=== PATIENT | female | born 1945 | race Caucasian/White ===

== ENCOUNTER 2016-07-06 14:11 | Outpatient (CLI) | payer MEDICARE, OTHER | END 2016-07-06 14:12 | disposition EMS.NT | LOC: EMS 14:11 | PROVIDERS: ATTEND Surgery | DX: R53.83 Other fatigue (principal); R41.0 Disorientation, unspecified; R47.81 Slurred speech ==

== ENCOUNTER 2016-12-09 17:28 | Outpatient (CLI) | payer MEDICARE, OTHER | END 2016-12-09 17:29 | disposition EMS.NT | LOC: EMS 17:28 | PROVIDERS: ATTEND Surgery | DX: M25.551 Pain in right hip (principal); W10.9XXA Fall (on) (from) unspecified stairs and steps, initial encounter; Y92.009 Unspecified place in unspecified non-institutional (private) residence as the place of occurrence of the external cause ==

== ENCOUNTER 2016-12-09 18:06 | Emergency (ER) | payer MEDICARE, OTHER ==
[2016-12-09] MEDS ORDERED: HYDROcod/ACETAM 5/325 MG TABLET PO STA (18:15)
[2016-12-09] MEDS ORDERED: TETANUS/DIPHTHERIA/PERTUSSIS 0.5 ML SYRINGE IM ONE ×2 (18:16→18:26)
--- NOTE | 2016-12-09 18:20 | ED Physician Documentation ---
PD HPI HEADACHE - Stated complaint Stated Complaint: HEAD INJ - Chief complaint Chief Complaint: Trauma Hd/Nk - History obtained from History obtained from: Patient, Family - History of Present Illness Timing - onset: Other (She fell down several stairs at home hitting the back of her head with no loss of consciousness. She has a moderate headache. She also complains of right hip pain but no pain with range of motion or inability to walk. Tetanus is not up-to-date. 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 - Present Medications Home Medications: Ambulatory Orders Medication Instructions Recorded Confirmed Aspirin [Aspirin EC] 81 mg PO DAILY 11/17/15 12/09/16 Carvedilol [Coreg] 12.5 mg PO BID 11/17/15 12/09/16 Insulin Glargine [Lantus Solostar] 40 units SQ BID 11/17/15 12/09/16 Lisinopril [Lisinopril] 10 mg PO DAILY 11/17/15 12/09/16 Simvastatin [Zocor] 20 mg PO DAILY 11/17/15 12/09/16 metFORMIN [Glucophage] 1,000 mg PO BID 11/17/15 12/09/16 Citalopram [CeleXA] 10 mg PO DAILY 12/09/16 12/09/16 HYDROcod/ACETAM 5/325 [[place] 5/325] 1 - 2 ea PO Q6H PRN #10 tablet 12/09/16 Lisinopril 12/09/16 Tolterodine [Detrol LA] 2 mg PO BID 12/09/16 12/09/16 - Allergies Allergies/Adverse Reactions: Allergies Allergy/AdvReac Type Severity Reaction Status Date / Time Penicillins Allergy Anaphylaxis Verified 12/09/16 18:16 - Living Situation Living Situation: reports: With spouse/s.o. - Social History Does the pt smoke?: No Smoking Status: Never smoker Does the pt drink ETOH?: Yes Does the pt have substance abuse?: No - Family History Family history: reports: Non contributory - Immunizations Immunizations are current?: Yes - POLST Patient has POLST: No PD ED PE NORMAL - Vitals Vital signs reviewed: Yes - General General: Alert and oriented X 3, No acute distress - HEENT HEENT: PERRL, EOMI, Other (Firm hematoma on the right occiput) - Neck Neck: Other (Mild upper C-spine tenderness) - Cardiac Cardiac: RRR, No murmur - Respiratory Respiratory: No respiratory distress, Clear bilaterally - Abdomen Abdomen: Soft, Non tender - Extremities Extremities: Other (All of her extremities are palpated and nontender, specifically the right hip is nontender and she has no pain with internal or external rotation. She does have broken fingernails of the right second and third fingers which were clipped during examination at her request. There was a wendy in the skin on the radial side of the right third finger that was irrigated and Dermabond it because it was oozing a little bit.) - Neuro Neuro: Alert and oriented X 3, Normal speech - Psych Psych: Normal mood, Normal affect Results - Vitals Vitals: Vital Signs - 24 hr 12/09/16 12/09/16 18:10 19:15 Temperature 36.5 C 36.2 C L Heart Rate 77 71 Respiratory 18 18 Rate Blood Pressure 132/69 H 109/71 O2 Saturation 96 95 Oxygen O2 Source Room air - Labs Labs: Laboratory Tests 12/09/16 18:41 POC Whole Bld Glucose 121 H - Rads (name of study) CT Head and Cspine Radiology: EMP read contemporaneously (Degenerative and age-related changes without acute disease) Procedures - Laceration (location) Right third finger Length in cm: 0.5 Wound type: Linear, Superficial Wound Preparation: Irrigated copiously NS Skin layer closure: Dermabond Other: Tetanus booster given Complexity: Simple PD MEDICAL DECISION MAKING - ED course ED course: 71-year-old woman with fall downstairs and a head injury, chronically no hip fracture and has no hip pain at rest. Head and neck CTs were done without relevant findings. She was able to walk and bear weight without issue here was given 6 Vicodin to go. Tetanus was updated. The patient and family were counseled as to the diagnosis and need for follow- up. I counseled the patient with regard to signs and symptoms that would necessitate an urgent reevaluation in the emergency department. They understand they are welcome to return at any time if worse or if not improving as expected. This document was made in part using voice recognition software. While efforts are made to proofread this documents, sound alike and grammatical errors may occur. Departure - Departure Disposition: 01 Home, Self Care Clinical Impression: Neck pain Head injury Qualifiers: Encounter type: initial encounter Qualified Code(s): S09.90XA - Unspecified injury of head, initial encounter Fall Qualifiers: Encounter type: initial encounter Qualified Code(s): W19.XXXA - Unspecified fall, initial encounter Knee contusion Qualifiers: Encounter type: initial encounter Laterality: left Qualified Code(s): S80.02XA - Contusion of left knee, initial encounter Condition: Good Record reviewed to determine appropriate education?: Yes Instructions: ED Head Injury Closed Prescriptions: HYDROcod/ACETAM 5/325 [[place] 5/325] 1 - 2 ea PO Q6H PRN #10 tablet PRN Reason: Pain Comments: Call your doctor to arrange a follow-up appointment, make the next available appointment. In the interim, return anytime if worse or if new symptoms develop. Your blood pressure was elevated today on check into the emergency department. This does not mean that you have hypertension, it is a common phenomenon to come to the emergency department and have elevated blood pressure. I recommend that she see your primary care physician within the week to have it rechecked when you are feeling better. Do not drink or drive while taking narcotic pain medication. Note that many narcotic pain relievers also contain Tylenol/acetaminophen. Please ensure that your total dose of acetaminophen from all sources does not exceed 3 g (3000 mg) per day. You may get constipated while on this medication. Take a stool softener such as Colace twice a day while you are on it. Also add an tcdy-aga-vpsccft laxative such as senna or MiraLAX on any day that you do not have a bowel movement. If you received a narcotic pain medication or sedative while in the emergency department, do not drive for the next 24 hours. Discharge Date/Time: 12/09/16 19:26
[2016-12-09] MEDS ORDERED: HYDROcod/ACETAM 5/325 MG TABLET ONE (18:26)
--- NOTE | 2016-12-09 18:56 | CT Preliminary Report ---
Exam: CT HEAD W/O IMPRESSION: 1. Superficial soft tissue swelling. 2. Atrophic and other chronic findings. No acute intracranial disease. [facility] SITE ID: [id number]
--- NOTE | 2016-12-09 18:59 | CT Report ---
EXAM: CT HEAD EXAM DATE: 12/09/2016 06:31 PM. CLINICAL HISTORY: Fall, pain. COMPARISON: 11/17/2015. TECHNIQUE: Multiaxial CT images were obtained from the foramen magnum to the vertex. IV contrast: Non e. Reformats: Coronal. In accordance with CT protocol optimization, one or more of the following dose reduction techniques w ere utilized for this exam: automated exposure control, adjustment of mA and/or KV based on patient s ize, or use of iterative reconstructive technique. FINDINGS: Parenchyma: No intraparenchymal hemorrhage. No evidence of mass, midline shift, or CT findings of acu te infarction. Clarke-white differentiation is distinct. Extraaxial Spaces: Normal for age. No subdural or epidural collections. Ventricles: The ventricles and cortical sulci are enlarged, consistent with age-related tissue loss. Sinuses and orbits: Imaged paranasal sinuses, orbits, and mastoids show no significant abnormality. Bones: Unremarkable. Other: Mild chronic microangiopathic white matter changes. Superficial soft tissue swelling over post erior right parietal region. IMPRESSION: 1. Superficial soft tissue swelling. 2. Atrophic and other chronic findings. No acute intracranial disease. [facility] Referring Provider Line: [phone] SITE ID: [id number]
--- NOTE | 2016-12-09 18:59 | CT Preliminary Report ---
Exam: CT CERVICAL SPINE W/O IMPRESSION: Degenerative changes. No acute disease. [facility] SITE ID: [id number]
--- NOTE | 2016-12-09 19:02 | CT Report ---
EXAM: CT CERVICAL SPINE WITHOUT CONTRAST DATE: 12/09/2016 06:38 PM HISTORY: Fall, pain. COMPARISONS: 11/17/2015. TECHNIQUE: Thin-section axial images were acquired of the cervical spine without contrast. Post-proce ssing: Coronal and sagittal reformats. Other: None. In accordance with CT protocol optimization, one or more of the following dose reduction techniques w ere utilized for this exam: automated exposure control, adjustment of mA and/or KV based on patient s ize, or use of iterative reconstructive technique. FINDINGS: Alignment: Normal. No scoliosis or spondylolisthesis. Bones: No fracture or bone lesion. Interspace Levels/Facets: Disk space narrowing similar to previous study, most marked at C5-C6 and C6 -C7 with small marginal osteophytes. Mild degenerative changes in the facet joints, left more than ri ght. Musculature: Grossly unremarkable. Other: The paravertebral and prevertebral soft tissues are normal. The lung apices are clear. IMPRESSION: Degenerative changes. No acute disease. [facility] Referring Provider Line: [phone] SITE ID: [id number]
[2016-12-09] MEDS ORDERED: HYDROcod/ACET 5/325 Prepack 6 PO STA (19:07)
[2016-12-09 19:15] VITALS: BP 109/71
[2016-12-09] MEDS ORDERED: HYDROcod/ACET 5/325 Prepack 6 PO ONE (19:22)
== END 2016-12-09 19:26 | disposition home or self-care (01) ==
LOC: ED 18:06
DX: S09.90XA Unspecified injury of head, initial encounter (principal); S80.02XA Contusion of left knee, initial encounter; S61.212A Laceration without foreign body of right middle finger without damage to nail, initial encounter; W10.9XXA Fall (on) (from) unspecified stairs and steps, initial encounter; W45.8XXA Other foreign body or object entering through skin, initial encounter; Y92.009 Unspecified place in unspecified non-institutional (private) residence as the place of occurrence of the external cause; Y92.239 Unspecified place in hospital as the place of occurrence of the external cause; R03.0 Elevated blood-pressure reading, without diagnosis of hypertension; Z23 Encounter for immunization; I50.9 Heart failure, unspecified; E11.9 Type 2 diabetes mellitus without complications
CPT/HCPCS: 12001; 70450; 72125; 90471; 90715; 99283; A9270

== ENCOUNTER 2017-05-14 15:12 | Outpatient (CLI) | payer MEDICARE, OTHER ==
--- NOTE | 2017-05-15 15:30 | Mammography Report ---
DIGITAL SCREENING LEFT MAMMOGRAM: 05/14/2017 CLINICAL INDICATION: A 72-year-old with personal history of right breast cancer, status post mastectomy, for screening. TECHNIQUE: Left CC, laterally exaggerated CC, MLO views were obtained. COMPARISON: 01/2012, 11/2010, 11/2009. FINDINGS: The left breast again demonstrates fatty replacement. Coarse, typically benign calcifications are present. Intramammary lymph nodes are stable. No suspicious masses, clustered microcalcifications, or regions of architectural distortion are identified. IMPRESSION: BENIGN FINDINGS. RECOMMENDATION: ROUTINE ANNUAL SCREENING UNLESS OTHERWISE CLINICALLY INDICATED. BIRADS CATEGORY 2-BENIGN FINDINGS. STANDARD QUALIFYING STATEMENTS: 1. This examination was reviewed with the aid of Computer-Aided Detection (CAD). 2. A negative or benign imaging report should not delay biopsy if clinically suspicious findings are present. Consider surgical consultation if warranted. More than 5% of cancers are not identified by imaging. 3. Dense breasts may obscure an underlying neoplasm. TD: 05/15/2017 15:29
== END 2017-05-14 15:13 | disposition home or self-care (01) ==
LOC: DI 15:12
PROVIDERS: ATTEND Physician Assistant
DX: Z12.31 Encounter for screening mammogram for malignant neoplasm of breast (principal); Z85.3 Personal history of malignant neoplasm of breast; Z90.11 Acquired absence of right breast and nipple

== ENCOUNTER 2017-05-22 08:01 | Outpatient (CLI) | payer MEDICARE, OTHER ==
[2017-05-22] MEDS ORDERED: ALBUTEROL NEB 2.5 MG/3 ML INH ONE (10:00)
== END 2017-05-22 08:02 | disposition home or self-care (01) ==
LOC: DI 08:01
PROVIDERS: ATTEND Physician Assistant
DX: R06.00 Dyspnea, unspecified (principal); I50.9 Heart failure, unspecified; I34.0 Nonrheumatic mitral (valve) insufficiency; Z87.891 Personal history of nicotine dependence
CPT/HCPCS: 93306; 94060

== ENCOUNTER 2017-12-26 00:09 | Emergency (ER) | payer MEDICARE, OTHER ==
--- NOTE | 2017-12-26 01:24 | XRAY Report ---
Reason: coughing Procedure Date: 12/26/2017 Accession Number: [id number] / [id number] Procedure: XR - Chest 2 View X-Ray CPT Code: 13366 FULL RESULT: EXAM: CHEST RADIOGRAPHY EXAM DATE: 12/26/2017 01:15 AM. CLINICAL HISTORY: Coughing. COMPARISON: CHEST 2 VIEW PA/LAT 06/11/2015 12:40 PM. TECHNIQUE: 2 views. FINDINGS: Lungs/Pleura: No focal opacities evident. No pleural effusion. No pneumothorax. Normal volumes. Mediastinum: Heart and mediastinal contours are unremarkable. Other: Increasing eventration of the anterior right hemidiaphragm. IMPRESSION: Increasing right diaphragmatic eventration. No evidence of acute cardiopulmonary disease. [facility]
--- NOTE | 2017-12-26 01:29 | ED Physician Documentation ---
PD HPI URI - Stated complaint Stated Complaint: COUGH - Chief complaint Chief Complaint: Resp - History obtained from History obtained from: Patient - History of Present Illness Timing - onset: How many weeks ago (1) Timing details: Gradual onset Associated symptoms: Productive cough. No: Fever Similar symptoms before: Has not had sx before Recently seen: Not recently seen - Additional information Additional information: c/o cough x 1 week, gradually worsening, became productive yesterday Review of Systems Constitutional: denies: Fever, Chills, Sweats Throat: reports: Sore throat Cardiac: denies: Chest pain / pressure, Palpitations, Pedal edema Respiratory: reports: Dyspnea, Cough. 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 - Present Medications Home Medications: Ambulatory Orders Medication Instructions Recorded Confirmed Aspirin [Aspirin EC] 81 mg PO DAILY 11/17/15 12/09/16 Carvedilol [Coreg] 12.5 mg PO BID 11/17/15 12/09/16 Insulin Glargine [Lantus Solostar] 40 units SQ BID 11/17/15 12/09/16 Lisinopril 10 mg PO DAILY 11/17/15 12/09/16 Simvastatin [Zocor] 20 mg PO DAILY 11/17/15 12/09/16 metFORMIN [Glucophage] 1,000 mg PO BID 11/17/15 12/09/16 Citalopram [CeleXA] 10 mg PO DAILY 12/09/16 12/09/16 HYDROcod/ACETAM 5/325 [[place] 5/325] 1 - 2 ea PO Q6H PRN #10 tablet 12/09/16 Lisinopril 12/09/16 Tolterodine [Detrol LA] 2 mg PO BID 12/09/16 12/09/16 Benzonatate [Tessalon] 100 - 200 mg PO TID PRN #20 capsule 12/26/17 predniSONE [Prednisone] 40 mg PO DAILY #6 tablet 12/26/17 - Allergies Allergies/Adverse Reactions: Allergies Allergy/AdvReac Type Severity Reaction Status Date / Time Penicillins Allergy Anaphylaxis Verified 11/03/18 00:18 - Social History Does the pt smoke?: No Smoking Status: Never smoker Does the pt drink ETOH?: Yes Does the pt have substance abuse?: No - Immunizations Immunizations are current?: Yes - POLST Patient has POLST: No PD ED PE NORMAL - Vitals Vital signs reviewed: Yes - General General: Alert and oriented X 3, No acute distress, Well developed/nourished, Other (frequent coughing during H+P) - Cardiac Cardiac: RRR, No murmur - Respiratory Respiratory: No respiratory distress, Other (course expiratory breath sounds bilaterally) - Extremities Extremities: No edema Results - Vitals Vitals: Oxygen O2 Source Room air - Rads (name of study) chest xray Radiology: Prelim report reviewed, See rad report PD MEDICAL DECISION MAKING - ED course Complexity details: reviewed results, re-evaluated patient, considered differential, d/w patient ED course: on reevaluation, patient reports improvement in symptoms and has noticeably less coughing. there is improved aeration on auscultation with mild residual course expiratory breath sounds bilaterally Departure - Departure Disposition: 01 Home, Self Care Clinical Impression: Bronchitis, acute, with bronchospasm Condition: Good Instructions: ED Bronchitis Asthmatic Follow-Up: Sabrina Woody PA-C [Primary Care Provider] - (3-4 days if symptoms not improving ) Prescriptions: Benzonatate [Tessalon] 100 - 200 mg PO TID PRN #20 capsule PRN Reason: Cough predniSONE [Prednisone] 40 mg PO DAILY #6 tablet Discharge Date/Time: 12/26/17 02:53
[2017-12-26] MEDS ORDERED: IPRATROPIUM/ALBUTEROL 3 ML NEB INH STA (01:53)
[2017-12-26] MEDS ORDERED: LORATADINE 10 MG TABLET PO STA (01:53)
[2017-12-26] MEDS ORDERED: BENZONATATE 100 MG CAPSULE PO STA (01:54)
[2017-12-26] MEDS ORDERED: predniSONE 20 MG TABLET PO STA (01:54)
[2017-12-26 02:06] VITALS: BP 129/71
== END 2017-12-26 02:53 | disposition home or self-care (01) ==
LOC: ED 00:09
DX: J20.9 Acute bronchitis, unspecified (principal); Z79.82 Long term (current) use of aspirin
CPT/HCPCS: 71046; 94640; 99283; A9270; J7512

== ENCOUNTER 2018-09-09 10:43 | Outpatient (CLI) | payer MEDICARE, OTHER ==
--- NOTE | 2018-09-09 13:01 | XRAY Report ---
Reason: RIGHT SHOULDER PAIN Procedure Date: 09/09/2018 Accession Number: [id number] / [id number] Procedure: XRN - Shoulder 3 View RT CPT Code: FULL RESULT: EXAM: RIGHT SHOULDER RADIOGRAPHY EXAM DATE: 09/09/2018 10:58 AM. CLINICAL HISTORY: Right shoulder pain. COMPARISON: None. TECHNIQUE: 3 views. FINDINGS: Bones: Normal. No fracture or bone lesion. Joints: The glenohumeral and acromioclavicular joints are normally located with degenerative changes in both including osteophyte formation and loss of joint space. Soft tissues: The visualized hemithorax is unremarkable. No soft tissue swelling. IMPRESSION: At least moderate degenerative changes of the glenohumeral articulation and AC joint. [facility]
== END 2018-09-09 10:44 | disposition home or self-care (01) ==
LOC: DI.N 10:43
PROVIDERS: ATTEND Internal Medicine
DX: M19.011 Primary osteoarthritis, right shoulder (principal)

== ENCOUNTER 2018-09-24 18:46 | Outpatient (CLI) | payer MEDICARE, OTHER | END 2018-09-24 18:47 | disposition EMS.NT | LOC: EMS 18:46 | PROVIDERS: ATTEND Surgery | DX: R41.82 Altered mental status, unspecified (principal); R73.09 Other abnormal glucose ==

== ENCOUNTER 2018-10-26 13:11 | Outpatient (CLI) | payer MEDICARE, OTHER ==
--- NOTE | 2018-10-26 16:10 | Mammography Report ---
Reason: HX MASTECTOMY FOR BREAST CA, SCREENING MAMMO Procedure Date: 10/26/2018 Accession Number: [id number] / [id number] Procedure: MANUEL - Screening Mammo Left w/[place] CPT Code: FULL RESULT: EXAM: Screening Mammo Left w/[place] DATE: 10/26/2018 2:10 PM CLINICAL HISTORY: Status post right mastectomy for routine screening. TECHNIQUE: (L) - Left CC and MLO views were obtained. COMPARISON: 09/09/2018, 05/14/2017, 02/11/2012, 12/04/2010, 11/29/2009 and 10/11/2008. PARENCHYMAL PATTERN: (A) - The breasts demonstrate scattered fibroglandular densities bilaterally. FINDINGS: There are 2 new or enlarging nodules in the left upper outer quadrant one 9 to 10 cm from the nipple and the other approximately 15 cm from the nipple both measuring under 1 cm in size. No suspicious microcalcifications, skin thickening or architectural distortion.. IMPRESSION: Needs additional evaluation left breast by spot compression views and possible ultrasound. RECOMMENDATION: (ADDMU) - Additional views using both Mammography and Ultrasound recommended. Left breast BI-RADS CATEGORY: (0) - Incomplete Examination - need additional evaluation. STANDARD QUALIFYING STATEMENTS: 1. This examination was not reviewed with the aid of Computer-Aided Detection (CAD). 2. A negative or benign imaging report should not preclude biopsy if clinically suspicious findings are present. 3. Dense breasts may obscure an underlying neoplasm. 4. This examination was reviewed with the aid of 3D breast imaging (tomosynthesis).
== END 2018-10-26 13:12 | disposition home or self-care (01) ==
LOC: DI 13:11
PROVIDERS: ATTEND Internal Medicine
DX: Z12.31 Encounter for screening mammogram for malignant neoplasm of breast (principal); R92.8 Other abnormal and inconclusive findings on diagnostic imaging of breast; Z85.3 Personal history of malignant neoplasm of breast; Z90.11 Acquired absence of right breast and nipple
CPT/HCPCS: 77063

== ENCOUNTER 2018-10-26 13:25 | Outpatient (CLI) | payer MEDICARE, OTHER ==
--- NOTE | 2018-10-27 08:59 | DEXA Report ---
Reason: POST MENOPAUSAL Procedure Date: 10/26/2018 Accession Number: [id number] / [id number] Procedure: DEX - Dexa Spine and/or Hip CPT Code: FULL RESULT: EXAM: Dexa Spine and/or Hip DATE: 10/26/2018 2:23 PM CLINICAL HISTORY: POST MENOPAUSAL TECHNIQUE: Dual energy x-ray absorptiometry (DXA) was performed on a [employer] System. Regions measured are the AP Spine, femoral neck, and if needed forearm. COMPARISON: None. In accordance with the International Society for Clinical Densitometry (ISCD) guidelines, data from previous exams may be reanalyzed using current recommendations and techniques. This is done to allow a more accurate basis for comparison with the current study. FINDINGS: The data for the lumbar spine is as follows: BMD (g/cm/cm) T-SCORE Z-SCORE REGION L1 1.218 0.7 1.7 L2 1.209 0.1 1.0 L3 1.458 2.2 3.1 L4 1.496 2.5 3.4 TOTAL 1.346 1.4 2.3 NOTE: All evaluable vertebrae are used for classification The data for the hip is as follows: BMD (g/cm/cm) T-SCORE Z-SCORE REGION Neck 0.719 -2.3 -1.0 TOTAL 0.806 -1.6 -0.6 NOTE: The femoral neck or total proximal femur, whichever is lowest, is used for classification. IMPRESSION: THE WHO CLASSIFICATION BASED ON THE INTERNATIONAL REFERENCE STANDARD IS OSTEOPENIA, REFERENCE LEFT FEMORAL NECK. THE FRACTURE RISK IS INCREASED. RECOMMENDATION: Patients with diagnosis of osteoporosis or osteopenia should have regular bone mineral density assessment. For those eligible for Medicare, routine testing is allowed once every 2 years. Testing frequency can be increased for patients who have rapidly progressing disease or for those who are receiving medical therapy to restore bone mass. COMMENT: World Health Organization (WHO) definitions for osteoporosis and osteopenia: NORMAL BMD: T-score at -1.0 or higher, fracture risk is low OSTEOPENIA BMD: T-score between -1.0 and -2.5, fracture risk is increased. OSTEOPOROSIS BMD: T-score at -2.5 or lower, fracture risk is high. National Osteoporosis Foundation recommends: 1. Obtain adequate dietary calcium (at least 1200 mg per day) and vitamin D (400-800 international units per day). 2. Participate, as appropriate, in regular weightbearing and muscle-strengthening exercise. 3. Avoid tobacco use and reduce alcohol and caffeine intake. 4. For more detailed information see the website at www.NOF.org.
== END 2018-10-26 13:26 | disposition home or self-care (01) ==
LOC: DI 13:25
PROVIDERS: ATTEND Internal Medicine
DX: Z13.820 Encounter for screening for osteoporosis (principal); M85.88 Other specified disorders of bone density and structure, other site; N95.8 Other specified menopausal and perimenopausal disorders
CPT/HCPCS: 77080

== ENCOUNTER 2018-11-09 09:16 | Outpatient (CLI) | payer MEDICARE, OTHER ==
--- NOTE | 2018-11-09 15:58 | Mammography Report ---
Reason: ABNORMAL MAMMOGRAM Procedure Date: 11/09/2018 Accession Number: [id number] / [id number] Procedure: [facility] - Diag Special Views Dig LT CPT Code: FULL RESULT: EXAM: Diag Special Views Dig LT, Breast Ultrasound Unilateral Limited LT DATE: 11/09/2018 10:34 AM CLINICAL HISTORY: Status post right mastectomy for cancer. Now with 2 new left breast nodules. COMPARISON: 10/26/2018 mammogram LEFT MAMMOGRAM TECHNIQUE: (L) - Left CC, ML, and MLO views were obtained. PARENCHYMAL PATTERN: (A) - The breasts demonstrate scattered fibroglandular densities bilaterally. FINDINGS: The 2 new left breast nodules persist on additional spot compression and true lateral imaging. LEFT BREAST ULTRASOUND TECHNIQUE: Targeted ultrasound was performed with me present of the left breast upper outer quadrant 9-10 and 15 cm distance from the nipple. Color Doppler was employed as appropriate. FINDINGS: 1. 2:00 position 10 cm from the nipple 8 x 4 x 8 mm oval well-circumscribed minimally vascular nodule, peripherally hypoechoic with echogenic center, possible intramammary lymph node. 2. 2:30 position 12 cm from the nipple hypoechoic ill-defined avascular taller than wide 7 x 11 x 6 mm nodule. 3. 1:00 position 14 cm from the nipple 3.6 x 1.2 x 1.5 cm vascular fairly well defined hyperechoic area without a mammographic correlate, likely a lipoma. IMPRESSION: Suspicious findings. BI-RADS category 4. Suggest stereotactic guided core biopsy RECOMMENDATION: (BIOPSY) - 1. Stereotactic core biopsy x 2: left breast nodule 2:30 position 12 cm from the nipple and left breast nodule 2:00 position 10 cm from the nipple. The 2:30 position nodule is considered the more suspicious and should be biopsied first although both can be biopsied at the same appointment. 2. Ultrasound follow-up in 6 months of the probable lipoma 1:00 position 14 cm from the nipple. BI-RADS CATEGORY: (4) - Suspicious. COMMENT: Stereotactic technique is favored over ultrasound for the biopsies because of the difficulty in locating the more suspicious lesion by ultrasound and the potential for obscuration of this lesion by anesthetic. STANDARD QUALIFYING STATEMENTS: 1. This examination was not reviewed with the aid of Computer-Aided Detection (CAD). 2. A negative or benign imaging report should not preclude biopsy if clinically suspicious findings are present. 3. Dense breasts may obscure an underlying neoplasm. 4. This examination was reviewed with the aid of 3D breast imaging (tomosynthesis). .
== END 2018-11-09 09:17 | disposition home or self-care (01) ==
LOC: DI 09:16
PROVIDERS: ATTEND Internal Medicine
DX: N63.20 Unspecified lump in the left breast, unspecified quadrant (principal); R92.8 Other abnormal and inconclusive findings on diagnostic imaging of breast; Z08 Encounter for follow-up examination after completed treatment for malignant neoplasm; Z85.3 Personal history of malignant neoplasm of breast
CPT/HCPCS: 76642

== ENCOUNTER 2018-12-01 10:17 | Outpatient (CLI) | payer MEDICARE, OTHER ==
[2018-12-01] MEDS ORDERED: BUFFERED LIDOCAINE 10 ML SYRINGE ONE ×2 (10:53→14:12)
[2018-12-01] MEDS ORDERED: BUFFERED LIDOCAINE 10 ML SYRINGE IU ONE (14:43)
--- NOTE | 2018-12-01 17:04 | Mammography Report ---
Reason: S/P LEFT BREAST US GUIDED BX Procedure Date: 12/01/2018 Accession Number: [id number] / [id number] Procedure: MANUEL - Diag Special Views Dig LT CPT Code: FULL RESULT: PROCEDURE: Ultrasound-guided needle biopsy left breast mass. CLINICAL DATA: Site 1 -- Targeted mass measuring 11 mm with irregular margins in the 2:30 o'clock axis of the left breast 12 cm from nipple. Site 2 -- Targeted mass measuring 8 mm with smooth margins in the 2 o'clock axis of the left breast 10 cm from nipple. Site 1 - Informed consent was obtained. Using standard aseptic technique, 10 cc of 1% buffered lidocaine was injected into the breast for local anesthesia. A small wendy was made in the skin with a #11 blade. A 14-gauge coaxial achieve needle system was used to obtain 3 samples and sent for histology and sample container labeled 2:30 12 cmfn. A specialized biopsy marker clip (cork) was placed into the biopsy cavity under ultrasound guidance. Site 2 - Using standard aseptic technique, 10 cc of 1% buffered lidocaine was injected into the breast for local anesthesia. A small wendy was made in the skin with a #11 blade. A 14-gauge coaxial achieve needle system was used to obtain 3 samples and sent for histology and sample container labeled 2:00 10 cmfn. A specialized biopsy marker clip (top hat) was placed into the biopsy cavity under ultrasound guidance. The patient was taken to separate mammography machine and a two-view digital mammography was performed to verify the clip placement and any complications. The mammography showed Site 1 to be at the expected location with cork clip in place. Site 2 showed clip associated with a mammographically stable intramammary lymph node in the axillary tail of the breast, NOT corresponding to location mammographic finding of concern by diagnostic workup of 11/09/2018, which is again seen as an oval mass with circumscribed margin 4 cm anterior to the cork shaped clip. The wound was dressed and ice applied. The patient was observed for approximately 15 minutes, then was discharged from diagnostic imaging Department in good condition following instructions on wound care and obtaining biopsy results. The patient is scheduled to receive the biopsy results from the referring physician. The tissue was sent for histologic analysis. IMPRESSION: Ultrasound-guided biopsy of the left breast, as described. NOTE: Biopsy of site 1 is at expected location. Biopsy of site 2 does not correspond by location to initial mammographic finding of concern. Depending on biopsy results and/or potential treatment plan, additional biopsy of the residual mass 4 cm anterior to cork shaped clip may be indicated. AN ADDENDUM WILL REMAIN TO THIS REPORT WHEN PATHOLOGY IS REVIEWED TO ESTABLISH CONCORDANCE.
== END 2018-12-01 10:18 | disposition home or self-care (01) ==
LOC: DI 10:17
PROVIDERS: ATTEND Internal Medicine
DX: C50.412 Malignant neoplasm of upper-outer quadrant of left female breast (principal); Z17.1 Estrogen receptor negative status [ER-]
CPT/HCPCS: 19083; 19084; 88305; 88341; 88342; 88360

== ENCOUNTER 2018-12-20 15:00 | Outpatient (CLI) | payer MEDICARE, OTHER ==
[2018-12-20 16:02] LABS: CREATININE 0.8 mg/dL (0.4-1.0)
== END 2018-12-20 15:01 | disposition home or self-care (01) ==
LOC: LAB 15:00
PROVIDERS: ATTEND Surgery
DX: C50.912 Malignant neoplasm of unspecified site of left female breast (principal)
CPT/HCPCS: 36415; 82565

== ENCOUNTER 2018-12-28 09:41 | Outpatient (CLI) | payer MEDICARE, OTHER ==
[2018-12-28] MEDS ORDERED: GADOBUTROL 15 MMOL/15 ML VIAL ONE (11:09)
--- NOTE | 2018-12-28 14:11 | OPERATIVE REPORT ---
Operative Report - General Procedure Date: 12/28/18 Planned Procedure: Left Breast Lumpectomy and [place] Node Biopsy After Needle Localization and Mapping. Pre-Op Diagnosis: Left Breast Cancer Procedure Performed: Left Breast Lumpectomy and [place] Node Biopsy After Needle Localization and Mapping. Post Op Diagnosis: Left Breast Cancer - Procedure Note Primary Surgeon: Sinan Anesthesia Provider: PETER Warner Anesthesia Technique: General LMA, Local Pathology: 1. Left Axillary [place] Node - 10 second count 8660. Background in the room is 0. Background in the axilla is 4 2. Left Breast Tissue with wire and clip Estimated Blood Loss (mL): 20 Indications: Biopsy proven left breast cancer
== END 2018-12-28 09:42 | disposition home or self-care (01) ==
LOC: DI 09:41
PROVIDERS: ATTEND Surgery
DX: C50.912 Malignant neoplasm of unspecified site of left female breast (principal)

== ENCOUNTER 2019-01-13 14:50 | Outpatient (CLI) | payer MEDICARE, OTHER | END 2019-01-13 14:51 | disposition home or self-care (01) | LOC: RT 14:50 | PROVIDERS: ATTEND Nurse Anesthetist, Certified Registered | DX: Z01.810 Encounter for preprocedural cardiovascular examination (principal); I50.22 Chronic systolic (congestive) heart failure; R07.9 Chest pain, unspecified | CPT/HCPCS: 93005 ==

== ENCOUNTER 2019-01-16 10:33 | Emergency (ER) | payer MEDICARE, OTHER ==
[2019-01-16 11:11] LABS: BASOPHILS # (AUTO) 0.1 10^3/uL (0.0-0.1); BASOPHILS % (AUTO) 0.9 %; EOSINOPHILS # (AUTO) 0.3 10^3/uL (0.0-0.7); EOSINOPHILS % (AUTO) 3.5 %; HGB - HEMOGLOBIN 12.4 g/dL (12.0-16.0); LYMPHOCYTES # (AUTO) 1.6 10^3/uL (1.5-3.5); LYMPHOCYTES % (AUTO) 20.5 %; MEAN CORPUSCULAR HGB CONC 32.7 g/dL (32.0-36.0); MEAN CORPUSCULAR VOLUME 88.8 fL (81.0-99.0); MEAN PLATELET VOLUME 9.7 fL (7.9-10.8); MONOCYTES # (AUTO) 0.5 10^3/uL (0.0-1.0); MONOCYTES % (AUTO) 6.8 %; NEUTROPHILS # (AUTO) 5.4 10^3/uL (1.5-6.6); NEUTROPHILS % (AUTO) 67.9 %; PLT - PLATELET COUNT 181 10^3/uL (130-450); RED BLOOD COUNT 4.27 10^6/uL (4.20-5.40); WHITE BLOOD COUNT 7.9 x10^3/uL (4.8-10.8)
[2019-01-16 11:24] LABS: ALBUMIN 3.8 g/dL (3.2-5.5); ALBUMIN/GLOBULIN RATIO 1.1 (1.0-2.2); BILIRUBIN,TOTAL 0.6 mg/dL (0.2-1.0); CALCIUM 9.2 mg/dL (8.5-10.3); CREATININE 0.9 mg/dL (0.4-1.0); TOTAL PROTEIN 7.4 g/dL (6.7-8.2)
--- NOTE | 2019-01-16 11:56 | XRAY Report ---
Reason: palpitations Procedure Date: 01/16/2019 Accession Number: [id number] / [id number] Procedure: XR - Chest 1 View X-Ray CPT Code: 66564 Final Report FULL RESULT: EXAM: CHEST RADIOGRAPHY EXAM DATE: 01/16/2019 11:32 AM. CLINICAL HISTORY: Palpitations for a few months. COMPARISON: CHEST 2 VIEW 12/26/2017 1:02 AM. TECHNIQUE: 1 view. FINDINGS: Lungs/Pleura: No focal opacities evident. No pleural effusion. No pneumothorax. Chronic elevation of the right hemidiaphragm. Mediastinum: Within exam limitations, the cardiomediastinal contour is normal. Other: S-shaped scoliosis. IMPRESSION: No acute abnormality or interval change. RADIA
[2019-01-16 13:06] VITALS: BP 114/74
--- NOTE | 2019-01-16 13:22 | ED Physician Documentation ---
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 Subacutely to chronically, may be from months she has episodes of palpitations. Happens maybe once a week, usually at night but sometimes while awake. Its either a sensation of skipped beats or rapid heart rate. Sometimes she feels short of breath with it. She had it last night, but does not now. She feels completely normal now with any chest pain or shortness of breath. No pedal edema. This is causing her a lot of anxiety because it sounds like recently she had a work-up for preop for mastectomy, for 2 small lesions in her left breast which are known to be cancer. I do not have the complete records but it sounds like due to a preop EKG, potentially with a new left bundle branch block, the surgery was canceled and she needed cardiology clearance prior to having the surgery rescheduled.) Review of Systems Constitutional: denies: Fever, Chills, Fatigue Cardiac: denies: Chest pain / pressure Respiratory: denies: Dyspnea, Cough GI: denies: Abdominal Pain, Nausea, Vomiting, Diarrhea PD PAST MEDICAL HISTORY - Past Medical History Past Medical History: No Cardiovascular: Congestive heart failure, Hypertension, Arrhythmia, Other Respiratory: Asthma Neuro: None Endocrine/Autoimmune: Type 2 diabetes GI: None BUSINESS ANALYSIS CONSULTANT: None : Incontinence HEENT: None Psych: Depression Musculoskeletal: Osteoarthritis, Gout Derm: Psoriasis - Past Surgical History Past Surgical History: Yes /BUSINESS ANALYSIS CONSULTANT: section, Mastectomy HEENT: Cataracts - Present Medications Home Medications: Ambulatory Orders Medication Instructions Recorded Confirmed Insulin Glargine [Lantus Solostar] 45 units SQ BID 11/17/15 01/12/19 Lisinopril 10 mg PO DAILY 11/17/15 01/12/19 Simvastatin [Zocor] 20 mg PO QPM 11/17/15 01/12/19 carvediloL [Coreg] 12.5 mg PO BID 11/17/15 01/12/19 metFORMIN [Glucophage] 1,000 mg PO BIDWM 11/17/15 01/12/19 Citalopram [CeleXA] 40 mg PO DAILY 12/09/16 01/12/19 Tolterodine [Detrol LA] 2 mg PO BID 12/09/16 01/12/19 Albuterol Sulfate [Proair Hfa 1 - 2 puffs INH Q4H PRN 01/12/19 01/12/19 Inhaler] Furosemide 20 - 40 mg PO DAILY 01/12/19 01/12/19 - Allergies Allergies/Adverse Reactions: Allergies Allergy/AdvReac Type Severity Reaction Status Date / Time adhesive tape Allergy skin nelson Verified 01/12/19 14:01 Penicillins Allergy Anaphylaxis Verified 12/20/18 13:48 - Social History Does the pt smoke?: No Smoking Status: Never smoker Does the pt drink ETOH?: Yes Does the pt have substance abuse?: No - Immunizations Immunizations are current?: Yes - POLST Patient has POLST: No PD ED PE NORMAL - Vitals Vital signs reviewed: Yes - General General: Alert and oriented X 3, No acute distress - HEENT HEENT: Pharynx benign - Neck Neck: Supple, no meningeal sign, No bony TTP - Cardiac Cardiac: RRR, No murmur - Respiratory Respiratory: No respiratory distress, Clear bilaterally - Abdomen Abdomen: Non tender - Extremities Extremities: No edema, No calf tenderness / cord - Neuro Neuro: Alert and oriented X 3, Normal speech Results - Vitals Vitals: Vital Signs - 24 hr 01/16/19 01/16/19 01/16/19 10:43 13:02 13:06 Temperature 36.8 C Heart Rate 69 66 Respiratory 20 17 Rate Blood Pressure 118/63 114/74 Blood Pressure 114/74 [Left] O2 Saturation 100 93 Oxygen O2 Source Room air - EKG (time done) 1044 Rate: Rate (enter#) (66) Rhythm: NSR [place]: Normal Intervals: LBBB QRS: Normal Ischemia: Normal ST segments Computer interpretation: Agree with computer - Labs Labs: Laboratory Tests 01/16/19 01/16/19 11:07 11:07 WBC 7.9 RBC 4.27 Hgb 12.4 Hct 37.9 MCV 88.8 MCH 29.0 MCHC 32.7 RDW 14.0 Plt Count 181 MPV 9.7 Neut # (Auto) 5.4 Lymph # (Auto) 1.6 [place] # (Auto) 0.5 Eos # (Auto) 0.3 Baso # (Auto) 0.1 Absolute Nucleated RBC 0.00 Nucleated RBC % 0.0 Sodium 138 Potassium 4.0 Chloride 98 L Carbon Dioxide 33 H Anion Gap 7.0 BUN 27 H Creatinine 0.9 Estimated GFR (MDRD) 62 L Glucose 98 Calcium 9.2 Total Bilirubin 0.6 AST 20 ALT 18 Alkaline Phosphatase 54 Total Protein 7.4 Albumin 3.8 Globulin 3.6 Albumin/Globulin Ratio 1.1 Lipase 26 - Rads (name of study) 1V CHEST Radiology: EMP read contemporaneously (NAD) PD MEDICAL DECISION MAKING - ED course ED course: This is a 73-year-old woman with subacute intermittent palpitations, no ectopy on the monitor while here. She does have a left bundle branch block of unclear chronicity. It was not commented on on the echo of last year so presume it is new since then. Her symptoms are more consistent with either paroxysmal atrial fibrillation, SVT, or PVC but again I am unable to narrow it down to the due to the lack of symptomatology or ectopy while in the emergency department. As such that she was encouraged to follow-up with her primary care physician or telephone diaphragm assembler for consideration for Holter monitor, potential repeat echo since it has been a year and a half prior to operation. Departure - Departure Disposition: 01 Home, Self Care Clinical Impression: Palpitation Condition: Good Record reviewed to determine appropriate education?: Yes Instructions: ED Palpitations Follow-Up: Portillo Medina MD [Primary Care Provider] - Tomorrow Comments: RECOMMEND TO DR MEDINA TO CONSIDER HOLTER MONITOR AND REPEAT ECHO (LAST 05/10). ALSO EXPEDITED CARDIOLOGY REFERRAL FOR CLEARANCE PREOP FOR PRESUMED NEW LEFT BUNDLE BRANCH BLOCK PRIOR TO MASTECTOMY. RETURN FOR NEW OR WORSE SYMPTOMS.
== END 2019-01-16 13:35 | disposition home or self-care (01) ==
LOC: ED 10:33
DX: R00.2 Palpitations (principal); I44.7 Left bundle-branch block, unspecified; C50.912 Malignant neoplasm of unspecified site of left female breast; I11.0 Hypertensive heart disease with heart failure; I50.9 Heart failure, unspecified; E11.9 Type 2 diabetes mellitus without complications; Z79.4 Long term (current) use of insulin
CPT/HCPCS: 36415; 71045; 80053; 83690; 85025; 93005; 99283; 99284

== ENCOUNTER 2019-02-01 08:51 | Outpatient (CLI) | payer MEDICARE, OTHER | END 2019-02-01 08:52 | disposition home or self-care (01) | LOC: DI 08:51 | PROVIDERS: ATTEND Surgery | DX: I42.9 Cardiomyopathy, unspecified (principal); I51.7 Cardiomegaly; I34.0 Nonrheumatic mitral (valve) insufficiency | CPT/HCPCS: 93306 ==

== ENCOUNTER 2019-02-08 08:24 | Day surgery (SDC) | payer MEDICARE, OTHER ==
[~2019-02-08 08:24] MED LIST: CEFAZOLIN SODIUM IN 0.9 % NACL 2 GM/100 ML BAG IV ONE
[2019-02-08] MEDS ORDERED: PROPOFOL 200 MG/20 ML VIAL IVP ONE ×2 (08:25)
[2019-02-08] MEDS ORDERED: SUCCINYLCHOLINE 200 MG/10 ML VIAL IVP ONE (08:25)
[2019-02-08] MEDS ORDERED: MIDAZOLAM 2 MG/2 ML VIAL IVP ONE ×2 (08:25)
[2019-02-08] MEDS ORDERED: KETAMINE 500 MG/10 ML VIAL IVP ONE (08:25)
[2019-02-08] MEDS ORDERED: ONDANSETRON 4 MG/2 ML VIAL IVP ONE (08:25)
[2019-02-08] MEDS ORDERED: fentaNYL 100 MCG/2 ML VIAL IVP ONE (08:25)
[2019-02-08] MEDS ORDERED: LACTATED RINGERS 1,000 ML IV ONE ×3 (11:48→18:50)
--- NOTE | 2019-02-08 11:59 | ANESTHESIA ---
Pre-Anesthesia VS, & Labs - Diagnosis L breast CA - Procedure L skin sparing simple mastectomy, sentinel node biopsy Vital Signs: Temp Pulse Resp BP Pulse Ox 36.7 C 86 20 137/71 H 95 02/08/19 08:43 02/08/19 08:43 02/08/19 08:43 02/08/19 08:43 02/08/19 08:43 Height 5 ft 1.5 in Weight (kg) 88 kg Body Mass Index 36.4 - NPO >8 hours Last Fluid Intake: 4oz clear grape [id number] - Is Patient ?: No - Lab Results Current Lab Results: Laboratory Tests 02/08/19 08:49: POC Whole Bld Glucose 168 H Lab results reviewed: Yes Home Medications and Allergies Insulin Glargine [Lantus Solostar] 45 units SQ BID 11/17/15 Lisinopril 10 mg PO DAILY 11/17/15 Simvastatin [Zocor] 20 mg PO QPM 11/17/15 carvediloL [Coreg] 12.5 mg PO BID 11/17/15 metFORMIN [Glucophage] 1,000 mg PO BIDWM 11/17/15 Citalopram [CeleXA] 40 mg PO DAILY 12/09/16 Tolterodine [Detrol LA] 2 mg PO BID 12/09/16 Albuterol Sulfate [Proair Hfa Inhaler] 1 - 2 puffs INH Q4H PRN 01/12/19 Furosemide 20 - 40 mg PO DAILY 01/12/19 Allergies/Adverse Reactions: Allergies Allergy/AdvReac Type Severity Reaction Status Date / Time adhesive tape Allergy skin nelson Verified 01/12/19 14:01 Penicillins Allergy Anaphylaxis Verified 12/20/18 13:48 Anes History & Medical History - Anesthetic History Anesthesia Complications: reports: No previous complications Family history of Anesthesia Complications: Denies Family history of Malignant Hyperthermia: Denies - Medical History Cardiovascular: reports: Congestive heart failure, Hypertension, Arrhythmia, Other Pulmonary: reports: Asthma Gastrointestinal: reports: None Urinary: reports: Incontinence Neuro: reports: None Musculoskeletal: reports: Osteoarthritis, Gout Endocrine/Autoimmune: reports: Type 2 diabetes Blood Disorders: reports: None Skin: reports: Psoriasis Smoking Status: Never smoker - Surgical History Eyes Ears Nose Throat (EENT): Cataracts Gynecologic: section, Mastectomy Results - EKG Results EKG Comparison: Reviewed EKG (NSR w/LBBB, no ST changes noted) - Echo Results Echo Results: Report reviewed (EF 45-50, mod MR) Exam General: Alert, Oriented x3, Cooperative Dental: WNL Mouth Openin Fingerbreadth Neck Mobility: Normal Mallampati classification: II Thyromental Distance: greater than 6 cm Respiratory: Lungs clear, Normal breath sounds, No respiratory distress Cardiovascular: Regular rate Neurological: Normal speech Mental/Cognitive Status: Alert/Oriented X3, Normal for patient Cognitive Status: Within normal limits Plan Anesthesia Type: General, Other Block (PECs 1&2 block) Regional Block: Per Surgeon's request for Post Op pain control Consent for Procedure(s) Verified and Reviewed: Yes Code Status: Attempt Resuscitation ASA classification: 3-Severe systemic disease Is this case an emergency?: No
[2019-02-08] MEDS ORDERED: LIDOCAINE 1%-EPI 1:100000 20 ML MDV ONE ×2 (13:27→18:15)
[2019-02-08] MEDS ORDERED: BUPIVACAINE 0.5% PF 30 ML VIAL ONE ×2 (13:28→18:15)
[2019-02-08] MEDS ORDERED: GABAPENTIN 400 MG CAPSULE ONE (13:34)
[2019-02-08] MEDS ORDERED: ACETAMINOPHEN 500 MG TABLET PO ONE (13:35)
[2019-02-08] MEDS ORDERED: CELECOXIB 100 MG CAPSULE PO ONE (13:35)
[2019-02-08] MEDS ORDERED: BUPIVACAINE 0.5% PF 30 ML VIAL SUBQ ONE ×3 (14:14→18:49)
[2019-02-08] MEDS ORDERED: LIDOCAINE 1%-EPI 1:100000 30 ML MDV SUBQ ONE ×3 (14:14→18:50)
--- NOTE | 2019-02-08 14:47 | ANESTHESIA PROCEDURE NOTE ---
Diagnosis: Left breast cancer, left breast mastectomy Procedure: Left PECS 1&2 blocks Height and Weight: Height 5 ft 1.5 in Weight (kg) 88 kg Body Mass Index 36.4 Vital Signs: Temp Pulse Resp BP Pulse Ox 36.7 C 86 20 137/71 H 95 02/08/19 08:43 02/08/19 08:43 02/08/19 08:43 02/08/19 08:43 02/08/19 08:43 Allergies adhesive tape Allergy (Verified 01/12/19 14:01) skin nelson Penicillins Allergy (Verified 12/20/18 13:48) Anaphylaxis Anes. Monitoring and Equipment: Non-invasive BP Procedure Notes: After induction of anesthesia, Left chest wall prepped with chloroprep. Left pectoralis major and minor muscles identified under ultrasound. A 22G stimiplex needle was directed towards the fascial planes. A total of 25ml of 0.25% ropivicaine plus 4mg of decadron was injected between the pectoralis minor and SAMUEL with adequate spread noted. An additional 10ml of local mix was injected between the pectoralis minor and major muscles. Tolerated well. Full evaluation pending.
--- NOTE | 2019-02-08 15:12 | Nuclear Medicine Report ---
Reason: LT BREAST CA Procedure Date: 02/08/2019 Accession Number: [id number] / [id number] Procedure: NM - Lymph Node Scintigraphy CPT Code: Final Report FULL RESULT: EXAM: Lymph Node Scintigraphy DATE: 02/08/2019 1:54 PM CLINICAL HISTORY: LT BREAST CA COMPARISON: 11/09/2018 mammogram and breast ultrasound TECHNIQUE: The left periareolar region is prepped with alcohol swabs. 2 cc of lidocaine 1% are injected subcutaneously for local anesthesia followed by 0.51 mCi of technetium 99 M filtered sulfur colloid. Sequential imaging is performed. A sentinel lymph node is not identified. The procedure is terminated at the direction of Dr. Menon. IMPRESSION: [place] node injection left breast. RADIA
[2019-02-08] MEDS ORDERED: HYDROmorphone 0.5 MG/0.5 ML SYRINGE IVP PRN (15:24)
[2019-02-08] MEDS ORDERED: oxyCODONE 5 MG TABLET PO PRN (15:24)
[2019-02-08] MEDS ORDERED: ONDANSETRON 4 MG/2 ML VIAL IVP PRN (15:24)
[2019-02-08] MEDS ORDERED: HYDROmorphone 0.5 MG/0.5 ML SYRINGE ONE (15:58)
--- NOTE | 2019-02-08 17:15 | OPERATIVE REPORT ---
Operative Report - General Procedure Date: 02/08/19 Planned Procedure: Left breast mastectomy Pre-Op Diagnosis: Left breast cancer Procedure Performed: Left breast skin sparing mastectomy Post Op Diagnosis: Biopsy-proven left breast cancer - Procedure Note Primary Surgeon: Sinan Anesthesia Provider: PETER Lam Anesthesia Technique: General LMA, Local, Regional block Pathology: Left breast Estimated Blood Loss (mL): 75 Drain/Tube Type: Flakito drain (19 [place] Flakito drain in the left inframmary pocket) Indications: Biopsy proven left breast cancer in the setting of a personal history of right breast cancer. We had planned sentinel node biopsy but lymphatic mapping has failed to identify any accessible nodes in the left axilla so we will proceed with left skin sparing mastectomy only. Complications: None apparent - Other Other Information/Narrative: After obtaining informed consent, the patient is brought to the operating room and placed in the supine position on the operating table. Following successful induction of general anesthesia, appropriate padding of all bony prominences, and placement of appropriate monitors, the left chest and axilla were prepped and draped in the standard surgical fashion. A timeout was held per scope protocol. All elements of the surgical safety checklist were observed before, during, and after the procedure. A circular incision was fashioned around the nipple areola complex on the left. This mixture was infiltrated with a mixture of local anesthetics to create a field block. A scalpel was used to open this incision through the skin and subcutaneous tissue.The breast tissue was then liberated from the overlying skin and subcutaneous tissue using traction and countertraction as well as cautery and sharp dissection. Planes were developed medially to the sternum, inferiorly to the inframammary fold, laterally to the latissimus muscle, and superiorly to approximately 4 cm inferior to the clavicle at the site of the existing PowerPort.Once these planes were all developed, the breast was then released from the pectoral fascia and removed in a medial to lateral fashion.It was marked with a short stitch superior,and a long stitch lateral.The wound was checked for hemostasis. It was irrigated with warm water and aspirated free of all fluid and particulate matter. A 19 [place] Flakito drain was placed in the inframammary pocket and brought out inferior medially. This was sewn into place. The incision was then closed with interrupted Vicryl sutures and the Endo Close device was used to close the skin incision. The wound was dressed with Dermabond and an abdominal binder applied. All sponge, needle, and instrument counts were correct at the conclusion of the case. The patient was allowed to awaken from anesthesia without difficulty and taken to the post anesthesia care unit in good condition.
[2019-02-08] MEDS ORDERED: HYDROmorphone 1 MG/ML CARPUJECT IVP PRN (18:24)
[2019-02-08] MEDS ORDERED: ACETAMINOPHEN 325 MG TABLET PO PRN (18:24)
[2019-02-08] MEDS ORDERED: SODIUM CHLORIDE FLUSH 0.9% 10 ML SYRINGE IVP PRN (18:24)
[2019-02-08] MEDS ORDERED: LACTATED RINGERS 1,000 ML IV SCH (19:00)
--- NOTE | 2019-02-08 19:23 | OPERATIVE REPORT ---
Operative Report - General Procedure Date: 02/08/19 Planned Procedure: Wound exploration with hemostasis Pre-Op Diagnosis: Postop hemorrhage after left mastectomy Procedure Performed: Wound exploration with ligation of a single muscular artery Post Op Diagnosis: Postop hemorrhage after left mastectomy - Procedure Note Primary Surgeon: Sinan Anesthesia Provider: PETER Warner Anesthesia Technique: Local, MAC Estimated Blood Loss (mL): 70 Drain/Tube Type: Flakito drain (In the inframmary pocket) Findings: A single tiny muscular artery visibly bleeding. No other bleeding source identified. Complications: None apparent - Other Other Information/Narrative: After obtaining informed consent, the patient is brought to the operating room and placed in supine position on the operating table. Following sedation with monitored anesthesia care, the left chest was prepped and draped in the standard surgical fashion. A timeout was held per scope protocol. All elements of surgical safety checklist were followed before, during, and after the procedure. We began by removing the existing Dermabond and stitches in the fresh wound. The incision was opened and we immediately removed a clot in the left axillary region against the chest wall. Examination did not reveal any obvious bleeding source immediately. The wound was irrigated with 1 L of warm water and aspirated free of all fluid and particulate matter. At this time we could see a tiny muscular artery in the superior medial aspect of the chest wall at the very upper limit of the incision. This was seen to pulsate. This was ligated and the wound irrigated and checked for hemostasis once again. No other bleeding source was identified. A 19 [place] Flakito drain was placed in the inframammary pocket and the incision was closed in 2 layers with Vicryl and Monocryl suture. All sponge, needle, and instrument counts were correct at the conclusion of the case. The patient was allowed awaken from anesthesia without difficulty and taken to the postanesthesia care unit in good condition.
[2019-02-08] MEDS ORDERED: fentaNYL 100 MCG/2 ML VIAL ONE (19:26)
[2019-02-08] MEDS: ceFAZolin 2 GM in SODIUM CHLORIDE 0.9% 100ML 100 ML IV SCH (20:03)
[2019-02-08 20:04] LABS: HB2 TOTAL 10.7 g/dL; HEMOGLOBIN A1C 0.61 g/dL; HEMOGLOBIN A1C % 7.4 % (4.6-6.2)
[2019-02-08] MEDS: TOLTERODINE LA 2 MG CAPSULE PO SCH (20:29)
[2019-02-08] MEDS: carvediloL 12.5 MG TABLET PO SCH (20:29)
[2019-02-08] MEDS ORDERED: ATORVASTATIN 10 MG TABLET PO SCH (21:00)
[2019-02-08] MEDS ORDERED: INSULIN GLARGINE 300 UNIT/3 ML PEN SUBQ SCH ×2 (21:00)
[2019-02-08] MEDS: INSULIN ASPART 300 UNIT/3 ML PEN SUBQ SCH (21:10)
[2019-02-09] MEDS: SODIUM CHLORIDE FLUSH 0.9% 10 ML SYRINGE IVP SCH ×2 (01:55→08:30)
[2019-02-09] MEDS ORDERED: WATER FOR INJECTION,STERILE 10 ML ONE (02:32)
[2019-02-09] MEDS: ceFAZolin 2 GM in SODIUM CHLORIDE 0.9% 100ML 100 ML IV SCH (02:53)
[2019-02-09] MEDS ORDERED: PANTOPRAZOLE 40 MG TABLET PO SCH (07:00)
[2019-02-09] MEDS ORDERED: metFORMIN 500 MG TABLET PO SCH (08:00)
[2019-02-09] MEDS: TOLTERODINE LA 2 MG CAPSULE PO SCH (08:29)
[2019-02-09] MEDS: carvediloL 12.5 MG TABLET PO SCH (08:29)
[2019-02-09] MEDS: INSULIN ASPART 300 UNIT/3 ML PEN SUBQ SCH ×2 (08:33→12:05)
[2019-02-09] MEDS ORDERED: FUROSEMIDE 40 MG TABLET PO SCH (09:00)
[2019-02-09] MEDS ORDERED: CITALOPRAM 10 MG TABLET PO SCH (09:00)
[2019-02-09] MEDS ORDERED: lisinopriL 5 MG TABLET PO SCH (09:00)
[2019-02-09 11:25] VITALS: BP 104/43
== END 2019-02-09 13:19 | disposition home or self-care (01) ==
LOC: SDS 08:24 → MS3 19:54 → SDS 02-09 13:19
PROVIDERS: ATTEND Surgery
PROC: 03LY0ZZ Occlusion of Upper Artery, Open Approach (ICD-10-PCS; 2019-02-08)
PROC: 0HTU0ZZ Resection of Left Breast, Open Approach (ICD-10-PCS; principal; 2019-02-08 11:00)
DX: C50.912 Malignant neoplasm of unspecified site of left female breast (principal); I97.620 Postprocedural hemorrhage of a circulatory system organ or structure following other procedure; Y83.6 Removal of other organ (partial) (total) as the cause of abnormal reaction of the patient, or of later complication, without mention of misadventure at the time of the procedure; Y92.234 Operating room of hospital as the place of occurrence of the external cause; Z17.1 Estrogen receptor negative status [ER-]; I11.0 Hypertensive heart disease with heart failure; I50.9 Heart failure, unspecified; E11.9 Type 2 diabetes mellitus without complications; J45.909 Unspecified asthma, uncomplicated; Z79.4 Long term (current) use of insulin; Z85.3 Personal history of malignant neoplasm of breast; Z79.899 Other long term (current) drug therapy
CPT/HCPCS: 19303; 36415; 37799; 78195; 83036; A9270; J0330; J1170; J1815; J7120

== ENCOUNTER 2019-03-21 06:09 | Day surgery (SDC) | payer MEDICARE, OTHER ==
[2019-03-21] MEDS ORDERED: SEVOFLURANE 250 ML LIQUID INH ONE (06:10)
[2019-03-21] MEDS ORDERED: fentaNYL 100 MCG/2 ML VIAL IVP ONE (06:10)
[2019-03-21] MEDS ORDERED: ACETAMINOPHEN 1,000 MG/100 ML 100 ML IV ONE (06:10)
[2019-03-21] MEDS ORDERED: ePHEDrine 50 MG/ML VIAL IVP ONE (06:10)
[2019-03-21] MEDS ORDERED: ONDANSETRON 4 MG/2 ML VIAL IVP ONE (06:10)
[2019-03-21] MEDS ORDERED: KETOROLAC 30 MG/ML VIAL IVP ONE (06:10)
[2019-03-21] MEDS ORDERED: PROPOFOL 200 MG/20 ML VIAL IVP ONE (06:10)
[2019-03-21] MEDS ORDERED: NEOSTIGMINE 1 MG/1 ML 10 ML MDV IVP ONE (06:10)
[2019-03-21] MEDS ORDERED: LIDOCAINE-MPF 2% 5 ML VIAL IM ONE (06:10)
[2019-03-21] MEDS ORDERED: LACTATED RINGERS 1,000 ML IV ONE (06:16)
[2019-03-21] MEDS ORDERED: CEFAZOLIN SODIUM IN 0.9 % NACL 2 GM/100 ML BAG IV ONE (06:21)
[2019-03-21] MEDS ORDERED: BUPIVACAINE 0.5% PF 30 ML VIAL ONE (07:12)
[2019-03-21] MEDS ORDERED: LIDOCAINE 1%-EPI 1:100000 20 ML MDV ONE (07:12)
--- NOTE | 2019-03-21 07:16 | ANESTHESIA ---
Pre-Anesthesia VS, & Labs - Diagnosis Left breast cancer - Procedure Placement of port, debridement of left breast wound Vital Signs: Temp Pulse Resp BP Pulse Ox 36.0 C L 79 18 131/85 H 93 03/21/19 06:34 03/21/19 06:34 03/21/19 06:34 03/21/19 06:34 03/21/19 06:34 Height 5 ft 1 in Weight (kg) 86 kg Body Mass Index 36.6 - NPO Last Fluid Intake: 4oz apple juice at 0430 - Is Patient ?: No - Lab Results Current Lab Results: Laboratory Tests 03/21/19 06:46: POC Whole Bld Glucose 105 H Home Medications and Allergies Insulin Glargine [Lantus Solostar] 45 units SQ BID 11/17/15 Lisinopril 10 mg PO DAILY 11/17/15 Simvastatin [Zocor] 20 mg PO QPM 11/17/15 carvediloL [Coreg] 12.5 mg PO BID 11/17/15 metFORMIN [Glucophage] 1,000 mg PO BIDWM 11/17/15 Citalopram [CeleXA] 40 mg PO DAILY 12/09/16 Tolterodine [Detrol LA] 2 mg PO BID 12/09/16 Albuterol Sulfate [Proair Hfa Inhaler] 1 - 2 puffs INH Q4H PRN 01/12/19 Furosemide 20 - 40 mg PO DAILY 01/12/19 Allergies/Adverse Reactions: Allergies Allergy/AdvReac Type Severity Reaction Status Date / Time adhesive tape Allergy skin nelson Verified 03/16/19 10:46 Penicillins Allergy Anaphylaxis Verified 03/16/19 10:46 Anes History & Medical History - Anesthetic History Anesthesia Complications: reports: No previous complications - Medical History Cardiovascular: reports: Congestive heart failure (EF 45%, global hypokinesis), Hypertension Pulmonary: reports: Asthma (used albuterol last night) Gastrointestinal: reports: None Urinary: reports: Incontinence Neuro: reports: None Musculoskeletal: reports: Osteoarthritis, Gout Endocrine/Autoimmune: reports: Type 2 diabetes Blood Disorders: reports: None Skin: reports: Psoriasis Smoking Status: Former smoker (Quit in 1980) Psychosocial: reports: Depression, Alcohol (occasional) - Surgical History Eyes Ears Nose Throat (EENT): Cataracts Gynecologic: section, Mastectomy Results - Echo Results Echo Results: Report reviewed Exam General: Alert, Oriented x3, Cooperative, No acute distress Dental: WNL Mouth Openin Fingerbreadth Neck Mobility: Normal Mallampati classification: III Thyromental Distance: 4-6 cm (2 FB) Respiratory: No respiratory distress, No accessory muscle use, Wheezing (right expiratory) Cardiovascular: Regular rate, Normal S1, Normal S2, No murmurs Mental/Cognitive Status: Alert/Oriented X3, Normal for patient Plan Anesthesia Type: General Consent for Procedure(s) Verified and Reviewed: Yes Code Status: Attempt Resuscitation ASA classification: 3-Severe systemic disease Is this case an emergency?: No
[2019-03-21] MEDS ORDERED: ALBUTEROL NEB 2.5 MG/3 ML INH ONE ×2 (07:29→07:33)
[2019-03-21] MEDS ORDERED: BUPIVACAINE 0.5% PF 30 ML VIAL INFIL ONE (08:34)
[2019-03-21] MEDS ORDERED: BUPIVACAINE 0.5% PF 30 ML VIAL SUBQ ONE (08:34)
[2019-03-21] MEDS ORDERED: LIDOCAINE 1%-EPI 1:100000 30 ML MDV SUBQ ONE ×2 (08:34)
--- NOTE | 2019-03-21 09:03 | OPERATIVE REPORT ---
Operative Report - General Procedure Date: 03/21/19 Planned Procedure: Placement of right subclavian power port Debridement of left mastectomy incision Pre-Op Diagnosis: Left breast cancer Procedure Performed: Placement of right subclavian power port and debridement of left mastectomy incision Post Op Diagnosis: Left breast cancer - Procedure Note Primary Surgeon: Sinan Anesthesia Provider: PETER Chauhan Anesthesia Technique: General LMA Pathology: None Estimated Blood Loss (mL): 10 Findings: Power port in good position in the superior vena cava Areas of both partial and full thickness eschar involving the left mastectomy incision Complications: None apparent - Other Other Information/Narrative: After obtaining informed consent, the patient is brought to the operating room and placed in supine position on the operating table. Following successful induction of sedation with monitored anesthesia care and appropriate padding of all bony prominences, the left chest and neck were prepped and draped in the standard surgical fashion. A timeout was held per scope protocol. All elements of the surgical safety checklist were followed before, during, and after the procedure. Following infiltration with local anesthetic to create a field block, the right subclavian vein was accessed in the deltopectoral groove. The J-wire was gently placed into the vein. Fluoroscopy was used to confirm the position of the wire and in the subclavian vein. We anesthetized the existing healed scar in the area around it for placement of the port itself. An incision was created here and carried down through the skin and subcutaneous tissue. A pocket was created with blunt dissection. The port tubing was attached to the tunneling device and passed from the access site of the vein into the pocket. It was trimmed to an appropriate length and the port attached. The port was sewn into place in the pocket. The dilator and introducer were then passed over the J-wire that was in the subclavian vein. The J-wire and dilator were removed leaving only the introducer. The tubing was then passed through the introducer and the introducer cracked and removed per furniture finisher helper's directions. The port was then checked for function and flushed and vandana easily. Additional local anesthetic was applied to the chest wall. The port pocket was closed with interrupted Vicryl sutures and Monocryl stitches were placed in both skin incision sites. All sponge, needle, and instrument counts were correct at the conclusion of the case. We now turned our attention to the left mastectomy incision. The eschar was gently elevated and curved Gray scissors were used to debride it from the edges of the viable skin. This was done without difficulty. There was no associated purulence. The wound was checked for hemostasis and then closed with a running locking nylon suture.The wound was dressed with dry gauze and tape. Chest x-ray in the postanesthesia care unit revealed the port in good position in the superior vena cava without evidence of pneumothorax.
--- NOTE | 2019-03-21 09:52 | XRAY Report ---
Reason: Right port placment Procedure Date: 03/21/2019 Accession Number: [id number] / [id number] Procedure: XR - Chest for Line Placement CPT Code: Final Report FULL RESULT: EXAM: CHEST RADIOGRAPHY EXAM DATE: 03/21/2019 09:17 AM. CLINICAL HISTORY: Right port placement. COMPARISON: CHEST 1 VIEW 01/16/2019 11:31 AM. TECHNIQUE: 1 view. FINDINGS: Lungs/Pleura: Mild right hemidiaphragm elevation, as before. Lungs are clear. No focal consolidation or interstitial abnormality. No pneumothorax or pleural fluid is identified. Mediastinum: Within exam limitations, the cardiomediastinal contour is normal. Now present is a right subclavian Port-A-Cath with its tip in the mid SVC. Other: None. IMPRESSION: 1. Right subclavian Port-A-Cath with its tip in the mid SVC. 2. No pneumothorax is identified. 3. Mild right hemidiaphragm elevation, as before. RADIA
[2019-03-21 10:59] VITALS: BP 113/65
--- NOTE | 2019-03-23 08:20 | XRAY Report ---
Reason: PORTACATH PLACEMENT Procedure Date: 03/21/2019 Accession Number: [id number] / [id number] Procedure: FL - OR C-Arm Procedure CPT Code: Final Report FULL RESULT: EXAM: FLUOROSCOPIC GUIDANCE EXAM DATE: 03/21/2019 08:45 AM. CLINICAL HISTORY: Port-A-Cath placement COMPARISON: CHEST 1 VIEW 01/16/2019 11:31 AM. FINDINGS: A single limited image shows a port and a portion of the port catheter. IMPRESSION: Fluoroscopic guidance provided for Port-A-Cath placement. Total fluoroscopy time: 0.01 minutes. Number of images: 1. RADIA
== END 2019-03-21 06:10 | disposition home or self-care (01) ==
LOC: SDS 06:09
PROVIDERS: ATTEND Surgery
PROC: 0HB5XZZ Excision of Chest Skin, External Approach (ICD-10-PCS; 2019-03-21)
PROC: 02HV33Z Insertion of Infusion Device into Superior Vena Cava, Percutaneous Approach (ICD-10-PCS; principal; 2019-03-21 07:30)
DX: C50.912 Malignant neoplasm of unspecified site of left female breast (principal); L90.5 Scar conditions and fibrosis of skin; E11.9 Type 2 diabetes mellitus without complications; I11.0 Hypertensive heart disease with heart failure; I50.22 Chronic systolic (congestive) heart failure; J45.909 Unspecified asthma, uncomplicated; N39.46 Mixed incontinence; M10.9 Gout, unspecified; L40.9 Psoriasis, unspecified; F32.9 Major depressive disorder, single episode, unspecified; E78.2 Mixed hyperlipidemia; E66.01 Morbid (severe) obesity due to excess calories; Z68.37 Body mass index [BMI] 37.0-37.9, adult; Z79.4 Long term (current) use of insulin; Z79.51 Long term (current) use of inhaled steroids; Z79.82 Long term (current) use of aspirin; Z87.891 Personal history of nicotine dependence
CPT/HCPCS: 11400; 36561; C1788; J0131; J0690; J3490; J7120; 71045

== ENCOUNTER 2019-04-05 18:50 | Outpatient (CLI) | payer MEDICARE, OTHER | END 2019-04-05 18:51 | disposition critical access hospital (66) | LOC: EMS 18:50 | PROVIDERS: ATTEND Surgery | DX: R53.1 Weakness (principal); R46.4 Slowness and poor responsiveness; W01.0XXA Fall on same level from slipping, tripping and stumbling without subsequent striking against object, initial encounter; Y92.002 Bathroom of unspecified non-institutional (private) residence as the place of occurrence of the external cause | CPT/HCPCS: A0425; A0429 ==

== ENCOUNTER 2019-04-05 19:09 | Inpatient (IN) | payer MEDICARE, OTHER ==
--- NOTE | 2019-04-05 19:31 | ED Physician Documentation ---
History of Present Illness - Stated complaint Stated Complaint: FALL/ HEAD/ NECK INJ - History obtained from History obtained from: Patient, Family (spouse) - History of Present Illness Timing: Enter time (18:30), Today Pain level now: 0 Improved by: nothing Worsened by: no exacerbating factors Associated symptoms: AMS - Additonal information Additional information: fell while walking at home 6:30 PM today. patient was walking in bathroom, lost balance. Spouse witnessed the fall. There was no LOC. She hit her head against the wall. Spouse notes mild confusion since she fell. Review of Systems Constitutional: reports: Fever (in ED, although unaware of fever at home) Eyes: reports: Reviewed and negative Ears: reports: Reviewed and negative Nose: reports: Reviewed and negative Throat: reports: Reviewed and negative Cardiac: reports: Reviewed and negative Respiratory: reports: Reviewed and negative GI: reports: Reviewed and negative : denies: Dysuria, Frequency, Incontinent Skin: reports: Reviewed and negative Musculoskeletal: reports: Joint pain (right hip (although in describing right hip pain, she sometimes points to her left hip)). denies: Neck pain, Back pain Neurologic: reports: Confused, Head injury. 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 : Incontinence HEENT: None Psych: Depression Musculoskeletal: Osteoarthritis, Gout Derm: Psoriasis - Past Surgical History Past Surgical History: Yes /ADMINISTRATIVE SALES ASSISTANT: section, Mastectomy HEENT: Cataracts - Present Medications Home Medications: Ambulatory Orders Medication Instructions Recorded Confirmed Insulin Glargine [Lantus Solostar] 45 units SQ BID 11/17/15 03/16/19 Lisinopril 10 mg PO DAILY 11/17/15 03/16/19 Simvastatin [Zocor] 20 mg PO QPM 11/17/15 03/16/19 carvediloL [Coreg] 12.5 mg PO BID 11/17/15 03/16/19 metFORMIN [Glucophage] 1,000 mg PO BIDWM 11/17/15 03/16/19 Citalopram [CeleXA] 40 mg PO DAILY 12/09/16 03/16/19 Tolterodine [Detrol LA] 2 mg PO BID 12/09/16 03/16/19 Albuterol Sulfate [Proair Hfa 1 - 2 puffs INH Q4H PRN 01/12/19 03/16/19 Inhaler] Furosemide 20 - 40 mg PO DAILY 01/12/19 03/16/19 Gabapentin 300 mg PO BID #60 capsule 02/08/19 03/16/19 Oxycodone HCl 5 mg PO Q6H PRN #20 capsule 02/08/19 03/16/19 Lidocaine/Prilocain 2.5% Cream 30 applic TOP Q8HR PRN #1 tube 03/21/19 [Emla 2.5% Cream] oxyCODONE [Roxicodone] 5 mg PO Q4-6H PRN #20 tablet 03/21/19 Ondansetron [Ondansetron Odt] 8 mg PO BID PRN 03/22/19 03/22/19 Prochlorperazine Maleate 1 tab ORAL Q6HR PRN 03/22/19 03/22/19 [Compazine] dexAMETHasone [Dexamethasone] 4 mg PO BID 03/22/19 03/22/19 OLANZapine [Olanzapine] 5 mg PO DAILY PM 04/05/19 04/05/19 - Allergies Allergies/Adverse Reactions: Allergies Allergy/AdvReac Type Severity Reaction Status Date / Time adhesive tape Allergy skin nelson Verified 03/16/19 10:46 Penicillins Allergy Anaphylaxis Verified 03/16/19 10:46 - Social History Does the pt smoke?: No Smoking Status: Former smoker (Quit in 1980) Does the pt drink ETOH?: Yes Does the pt have substance abuse?: No - Immunizations Immunizations are current?: Yes - POLST Patient has POLST: No PD ED PE NORMAL - Vitals Vital signs reviewed: Yes - General General: Alert and oriented X 3 (often needs to be reasked questions due to not answering first time), No acute distress, Well developed/nourished - HEENT HEENT: Atraumatic, PERRL, EOMI - Neck Neck: Supple, no meningeal sign, No bony TTP - Cardiac Cardiac: RRR, No murmur - Respiratory Respiratory: No respiratory distress, Clear bilaterally - Abdomen Abdomen: Soft, Non tender - Derm Derm: Normal color, Warm and dry - Extremities Extremities: No edema - Neuro Neuro: Alert and oriented X 3, application manager 2-12 intact, No motor deficit, No sensory deficit, Normal speech Eye Opening: Spontaneous Motor: Obeys Commands Verbal: Oriented GCS Score: 15 - Free text exam Free text exam: left chest mastectomy site has sutures in place with mild erythema, nontender, no discharge Results - Vitals Vitals: Vital Signs - 24 hr 04/05/19 04/05/19 19:24 22:35 Temperature 39.5 C H 38 C H Heart Rate 100 96 Respiratory 18 26 H Rate Blood Pressure 138/70 H 124/84 H O2 Saturation 90 L 100 Oxygen O2 Source Nasal cannula - EKG (time done) No standard instances Rate: Rate (enter#) (93) Rhythm: NSR [place]: LAD Intervals: LBBB Other comments: Other comments (LBBB noted on previous EKGs) - Labs Labs: Laboratory Tests 04/05/19 04/05/19 04/05/19 20:55 20:55 20:55 WBC 2.8 L RBC 3.97 L Hgb 10.7 L Hct 34.3 L MCV 86.4 MCH 27.0 MCHC 31.2 L RDW 13.6 Plt Count 159 MPV 11.1 H Neut # (Auto) Not Reportable Lymph # (Auto) Not Reportable [place] # (Auto) Not Reportable Eos # (Auto) Not Reportable Baso # (Auto) Not Reportable Absolute Nucleated RBC Not Reportable Total Counted 100 Band Neuts % (Manual) 15 H Abnorm Lymph % (Manual) 0 Nucleated RBC % Not Reportable Neutrophils # (Manual) 1.1 L Lymphocytes # (Manual) 0.7 L Monocytes # (Manual) 0.8 Eosinophils # (Manual) 0.1 Basophils # (Manual) 0.0 Differential Comment MANUAL DIFFERENTIAL Manual Slide Review Indicated WBC Morphology TOXIC GRANULATION Platelet Estimate NORMAL (130-450,000) Platelet Morphology RARE GIANT PLATELETS RBC Morph Micro Appear NORMAL APPEARANCE Sodium 133 L Potassium 3.4 L Chloride 90 L Carbon Dioxide 31 Anion Gap 12.0 BUN 10 Creatinine 0.8 Estimated GFR (MDRD) 71 L Glucose 191 H Lactic Acid 1.1 Calcium 8.7 Total Bilirubin 0.7 AST 29 ALT 26 Alkaline Phosphatase 76 Total Protein 7.4 Albumin 3.3 Globulin 4.1 Albumin/Globulin Ratio 0.8 L Lipase 18 L Urine Color Urine Clarity Urine pH Ur Specific [place] Urine Protein Urine Glucose (UA) Urine Ketones Urine Occult Blood Urine Nitrite Urine Bilirubin Urine Urobilinogen Ur Leukocyte Esterase Urine RBC Urine WBC Ur Squamous Epith Cells Urine Bacteria Ur Microscopic Review Urine Culture Comments Influenza A (Rapid) Influenza B (Rapid) 04/05/19 04/05/19 21:19 22:05 WBC RBC Hgb Hct MCV MCH MCHC RDW Plt Count MPV Neut # (Auto) Lymph # (Auto) [place] # (Auto) Eos # (Auto) Baso # (Auto) Absolute Nucleated RBC Total Counted Band Neuts % (Manual) Abnorm Lymph % (Manual) Nucleated RBC % Neutrophils # (Manual) Lymphocytes # (Manual) Monocytes # (Manual) Eosinophils # (Manual) Basophils # (Manual) Differential Comment Manual Slide Review WBC Morphology Platelet Estimate Platelet Morphology RBC Morph Micro Appear Sodium Potassium Chloride Carbon Dioxide Anion Gap BUN Creatinine Estimated GFR (MDRD) Glucose Lactic Acid Calcium Total Bilirubin AST ALT Alkaline Phosphatase Total Protein Albumin Globulin Albumin/Globulin Ratio Lipase Urine Color YELLOW Urine Clarity CLEAR Urine pH 8.0 H Ur Specific [place] 1.020 Urine Protein 30 H Urine Glucose (UA) NEGATIVE Urine Ketones 15 H Urine Occult Blood TRACE-LYSE Urine Nitrite NEGATIVE Urine Bilirubin NEGATIVE Urine Urobilinogen 0.2 (NORMAL) Ur Leukocyte Esterase NEGATIVE Urine RBC 0-5 Urine WBC 0-3 Ur Squamous Epith Cells FEW Squamous Urine Bacteria None Seen Ur Microscopic Review INDICATED Urine Culture Comments NOT INDICATED Influenza A (Rapid) Negative Influenza B (Rapid) Negative - Rads (name of study) CT head Radiology: Prelim report reviewed, See rad report chest xray Radiology: Prelim report reviewed, See rad report pelvis xray Radiology: Prelim report reviewed, See rad report PD MEDICAL DECISION MAKING - ED course Complexity details: reviewed old records, reviewed results, re-evaluated patient, considered differential, d/w patient, d/w family ED course: high fever on ED arrival. [place] [facility] [place] showed WBC 1.8, ANC 0.5 (500). ED blood tests tonight show ANC 1.1 (1100). D/W Dr. Del Cid (hem/onc covering for John Barrett); recommends admit to [facility] and give IV cefepime, treat as neutropenic fever Departure - Departure Disposition: [facility] DC/Xfer Clinical Impression: Neutropenic fever Condition: Stable Discharge Date/Time: 04/06/19 00:19
[2019-04-05 20:58] LABS: BASOPHILS % (AUTO) 2.2 %; EOSINOPHILS % (AUTO) 4.3 %; HGB - HEMOGLOBIN 10.7 g/dL (12.0-16.0); LYMPHOCYTES % (AUTO) 19.6 %; MEAN CORPUSCULAR HGB CONC 31.2 g/dL (32.0-36.0); MEAN CORPUSCULAR VOLUME 86.4 fL (81.0-99.0); MEAN PLATELET VOLUME 11.1 fL (7.9-10.8); MONOCYTES % (AUTO) 19.6 %; NEUTROPHILS % (AUTO) 42.3 %; PLT - PLATELET COUNT 159 10^3/uL (130-450); RED BLOOD COUNT 3.97 10^6/uL (4.20-5.40); RED CELL DISTRIBUTION WIDTH 13.6 % (12.0-15.0); WHITE BLOOD COUNT 2.8 x10^3/uL (4.8-10.8)
[2019-04-05 21:02] LABS: ABNORMAL LYMPHS % (MANUAL) 0 %
[2019-04-05 21:13] LABS: ALBUMIN 3.3 g/dL (3.2-5.5); ALBUMIN/GLOBULIN RATIO 0.8 (1.0-2.2); BILIRUBIN,TOTAL 0.7 mg/dL (0.2-1.0); CALCIUM 8.7 mg/dL (8.5-10.3); CREATININE 0.8 mg/dL (0.4-1.0); TOTAL PROTEIN 7.4 g/dL (6.7-8.2)
--- NOTE | 2019-04-05 21:18 | XRAY Report ---
Reason: fever Procedure Date: 04/05/2019 Accession Number: [id number] / [id number] Procedure: XR - Chest 2 View X-Ray CPT Code: 46123 Final Report FULL RESULT: EXAM: CHEST RADIOGRAPHY EXAM DATE: 04/05/2019 08:46 PM. CLINICAL HISTORY: Fever. COMPARISON: CHEST FOR LINE PLACEMENT 03/21/2019 9:02 AM. TECHNIQUE: 2 views. FINDINGS: Lungs/Pleura: There is elevation of the right hemidiaphragm. No new focal airspace disease. Mediastinum: Heart size is normal. Trachea is midline. Right-sided Port-A-Cath tip overlies lower SVC. Other: None. IMPRESSION: No change or acute cardiopulmonary abnormality. RADIA
--- NOTE | 2019-04-05 21:21 | CT Report ---
Reason: fall, head injury, AMS Procedure Date: 04/05/2019 Accession Number: [id number] / [id number] Procedure: CT - HEAD WO CPT Code: Final Report FULL RESULT: EXAM: CT HEAD EXAM DATE: 04/05/2019 08:50 PM. CLINICAL HISTORY: Fall, head injury, AMS. COMPARISON: CERVICAL SPINE W/O 12/09/2016 6:30 PM HEAD W/O 12/09/2016 6:30 PM. TECHNIQUE: Multiaxial CT images were obtained from the foramen magnum to the vertex. Reformats: Sagittal and coronal. IV contrast: None. In accordance with CT protocol optimization, one or more of the following dose reduction techniques were utilized for this exam: automated exposure control, adjustment of mA and/or KV based on patient size, or use of iterative reconstructive technique. FINDINGS: Parenchyma: No intraparenchymal hemorrhage. No evidence of mass, midline shift, or CT findings of infarction. Clarke-white differentiation is distinct. Mild diffuse parenchymal volume loss. Mild periventricular white matter hypoattenuation, most consistent with chronic microangiopathic white matter changes. Extraaxial Spaces: No subdural or epidural collections identified. Ventricles: Normal in size and position. Sinuses and Orbits: Imaged paranasal sinuses, orbits, and mastoids show no significant abnormality. Bones: No evidence of fracture or calvarial defect. Other: None. IMPRESSION: 1. No acute intracranial findings. 2. Mild diffuse parenchymal volume loss. 3. Mild chronic microangiopathic white matter changes. RADIA
[2019-04-05 21:22] LABS: BAND NEUTROPHILS % (MANUAL) 15 %; EOSINOPHILS # (MANUAL) 0.1 10^3/uL (0-0.7); LYMPHOCYTES # (MANUAL) 0.7 10^3/uL (1.5-3.5); LYMPHOCYTES % (MANUAL) 26 %; MONOCYTES # (MANUAL) 0.8 10^3/uL (0.0-1.0); RBC MORPHOLOGY (MULTIPLE) NORMAL APPEARANCE (NORMAL)
[2019-04-05 21:23] LABS: DIFFERENTIAL COMMENT MANUAL DIFFERENTIAL; PLATELET ESTIMATE, MANUAL NORMAL (130-450,000) (NORMAL); PLATELET MORPHOLOGY RARE GIANT PLATELETS (NORMAL)
[2019-04-05 21:29] LABS: BILIRUBIN,URINE NEGATIVE (NEGATIVE); GLUCOSE, URINE (UA) NEGATIVE (NEGATIVE); KETONES,URINE (UA) 15 mg/dL (NEGATIVE); LEUKOCYTE ESTERASE, URINE NEGATIVE (NEGATIVE); NITRITE,URINE NEGATIVE (NEGATIVE); OCCULT BLOOD,URINE TRACE-LYSE (NEGATIVE); PROTEIN,URINE 30 mg/dL (NEGATIVE); UROBILINOGEN,URINE 0.2 (NORMAL) E.U./dL (NORMAL)
[2019-04-05 21:30] LABS: CLARITY,URINE CLEAR (CLEAR)
[2019-04-05 21:40] LABS: RBC,URINE 0-5 /HPF (0-5); SQUAMOUS EPITHELIAL CELL,UR FEW Squamous (<= Few)
[2019-04-05 21:41] LABS: BACTERIA,URINE None Seen /HPF (None Seen)
[2019-04-05] MEDS ORDERED: ACETAMINOPHEN 325 MG TABLET PO STA (21:43)
--- NOTE | 2019-04-05 21:55 | XRAY Report ---
Reason: hip pain Procedure Date: 04/05/2019 Accession Number: [id number] / [id number] Procedure: XR - Pelvis 1 View CPT Code: Final Report FULL RESULT: EXAM: PELVIS RADIOGRAPHY EXAM DATE: 04/05/2019 09:33 PM. CLINICAL HISTORY: Hip pain. COMPARISON: HIP W/PELVIS 2-3V RT 11/17/2015 10:01 PM. TECHNIQUE: 1 view. FINDINGS: Bones: Normal. No fracture or bone lesion. Joints: No subluxation or dislocation. Soft Tissues: No dilated bowel loops. IMPRESSION: No pelvic fracture. RADIA
[2019-04-05] MEDS ORDERED: ACETAMINOPHEN 325 MG TABLET PO PRN (22:54)
[2019-04-05] MEDS ORDERED: SODIUM CHLORIDE 0.9% 1,000 ML IV SCH (23:00)
--- NOTE | 2019-04-05 23:01 | HISTORY & PHYSICAL EXAMINATION ---
Chief Complaint - Chief Complaint Chief Complaint: fever History of Present Illness - Admitted From Admitted From:: [facility] - History Obtained From Records Reviewed: yes History obtained from: patient and family - History of Present Illness HPI Comment/Other: Patient is a 74 y/o female who presented to the ED s/p a mechanical fall which happened around 05:30pm on 04/05/19. It was a mechanical fall. She bumped her head against the wall and then slid down, stopping hard. She denies chest pain or dyspnea. She has been experiencing some abdominal pain that seem to move around. She reports nausea and she vomited last night. She had a CT scan of her head and xray of her pelvis which were unremarkable. In the ED she was found to have a temperature of 39.5 degrees celsius. She also had a neutrophil count of 1.1. She recently started chemotherapy on 03/31/2019 for Stage I adenocarcinoma of the left breast and since then has been nauseous and has a metallic taste in her mouth. As a result of the finding above she was admitted for further treatment. 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 sister: breast cancer in late 40's Living arrangement: At home Living Situation: With spouse/s.o. Social History Notes: She does not smoke, drink or use illicit drugs - POLST Patient has POLST: No POLST Status: Full Code Meds/Allgy - Home Medications Home Medications: Ambulatory Orders Medication Instructions Recorded Confirmed Insulin Glargine [Lantus Solostar] 45 units SQ BID 11/17/15 03/16/19 Lisinopril 10 mg PO DAILY 11/17/15 03/16/19 Simvastatin [Zocor] 20 mg PO QPM 11/17/15 03/16/19 carvediloL [Coreg] 12.5 mg PO BID 11/17/15 03/16/19 metFORMIN [Glucophage] 1,000 mg PO BIDWM 11/17/15 03/16/19 Citalopram [CeleXA] 40 mg PO DAILY 12/09/16 03/16/19 Tolterodine [Detrol LA] 2 mg PO BID 12/09/16 03/16/19 Albuterol Sulfate [Proair Hfa 1 - 2 puffs INH Q4H PRN 01/12/19 03/16/19 Inhaler] Furosemide 20 - 40 mg PO DAILY 01/12/19 03/16/19 Gabapentin 300 mg PO BID #60 capsule 02/08/19 03/16/19 Oxycodone HCl 5 mg PO Q6H PRN #20 capsule 02/08/19 03/16/19 Lidocaine/Prilocain 2.5% Cream 30 applic TOP Q8HR PRN #1 tube 03/21/19 [Emla 2.5% Cream] oxyCODONE [Roxicodone] 5 mg PO Q4-6H PRN #20 tablet 03/21/19 Ondansetron [Ondansetron Odt] 8 mg PO BID PRN 03/22/19 03/22/19 Prochlorperazine Maleate 1 tab ORAL Q6HR PRN 03/22/19 03/22/19 [Compazine] dexAMETHasone [Dexamethasone] 4 mg PO BID 03/22/19 03/22/19 OLANZapine [Olanzapine] 5 mg PO DAILY PM 04/05/19 04/05/19 - Allergies Allergies/Adverse Reactions: Allergies Allergy/AdvReac Type Severity Reaction Status Date / Time adhesive tape Allergy skin nelson Verified 03/16/19 10:46 Penicillins Allergy Anaphylaxis Verified 03/16/19 10:46 Review of Systems - Constitutional Constitutional: reports: Fever - Eyes Eyes: denies: Pain, Dipolpia - Ears, Nose & Throat Ears, Nose & Throat: denies: Ear pain, Tinnitus - Cardiovascular Cariovascular: reports: Palpitations - Respiratory Respiratory: denies: Cough, Sputum production, Wheezing, SOB at rest - Gastrointestinal Gastrointestinal: denies: Abdominal pain, Abdominal distention, Constipation, Diarrhea, Nausea, Vomiting, Coffee grounds emesis - Genitourinary Genitourinary: denies: Dysuria, Frequency, Urgency, Hematuria, Incontinence, Flank pain - Musculoskeletal Musculoskeletal: reports: Joint pain (pelvic pain). denies: Muscle pain, Back pain - Integumentary Integumentary: denies: Rash, Pruritis - Neurological Neurological: denies: Focal weakness, Headache - Psychiatric Psychiatric: reports: Depression, Anxiety - Endocrine Endocrine: denies: Polyuria, Polydypsia - Hematologic/Lymphatic Hematologic/Lymphatic: denies: Anemia, Bruising, Petechiae Prior Level of Functionality: Patient is independent of activities of daily living Exam - Vital Signs Vital Signs: Vital Signs x48h Temp Pulse Resp BP Pulse Ox 04/05/19 22:35 38 C H 96 26 H 124/84 H 100 04/05/19 19:24 39.5 C H 100 18 138/70 H 90 L - Physical Exam General Appearance: positive: Alert, Mild distress Eyes Bilateral: positive: PERRL, EOMI ENT: positive: ENT inspection nml, No signs of dehydration Neck: positive: No JVD, Trachea midline Respiratory: positive: Chest non-tender, No respiratory distress, Breath sounds nml. negative: Wheezes, Rales, Rhonchi Cardiovascular: positive: Tachycardia Abdomen: positive: Non-tender, No organomegaly, Nml bowel sounds, No distention. negative: Guarding, Rebound Skin: positive: Color nml, No rash, Warm, Dry Extremities: positive: Non-tender, Full ROM, Nml appearance, No pedal edema Neurologic/Psychiatric: positive: Oriented x3, CN's nml (2-12), Mood/affect nml Conclusion/Plan - Problem List (1) Neutropenic fever Conclusion/Plan: Blood cultures drawn Patient started on cefepime Tylenol for fever (2) Breast cancer Conclusion/Plan: Stage I adenocarcinoma s/p recent left mastectomy Past history of right breast cancer in 1995 s/p right radical mastectomy Patient follows with Dr Barrett at the [facility] Recently started chemotherapy: docetaxel and cyclophosphamide Hx of chemotherapy(anthracycline)-induced cardiomyopathy Qualifiers: Breast location: upper outer quadrant of breast Estrogen receptor status: negative Patient sex: female Laterality: left Qualified Code(s): C50.412 - Malignant neoplasm of upper-outer quadrant of left female breast; Z17.1 - Estrogen receptor negative status [ER-] (3) CHF (congestive heart failure) Conclusion/Plan: Hx of chemotherapy(anthracycline)-induced cardiomyopathy Last EF 45%. In January 2019 On lasix, carvedilol and lisinipril Qualifiers: Heart failure type: systolic Heart failure chronicity: chronic Qualified Code(s): I50.22 - Chronic systolic (congestive) heart failure (4) Hypertension Conclusion/Plan: On carvedilol, lisinopril and lasix Will continue (5) Diabetes mellitus Conclusion/Plan: Lantus 45 units subq bid SSI. Accu check Hold metformin Qualifiers: Diabetes mellitus type: type 2 (6) Hyperlipidemia Conclusion/Plan: On simvastatin (7) Asthma Conclusion/Plan: Not in exacerbation Albuterol prn - Lab Results Fish Bones: 04/06/19 05:20 04/06/19 05:20 Core Measures - Anticipated LOS I expect patient to be DC'd or transferred within 96 hours.: Yes - DVT/VTE - Prophylaxis VTE/DVT Device ordered at admit?: Yes VTE/DVT Prophylaxis med ordered at admit?: Yes
[2019-04-05] MEDS ORDERED: CEFEPIME 2 GM in SODIUM CHLORIDE 0.9% MINIBAG 100 ML IV STA (23:09)
[2019-04-06] MEDS: CEFEPIME 2 GM in SODIUM CHLORIDE 0.9% MINIBAG 100 ML IV SCH ×3 (01:15→22:17)
[2019-04-06] MEDS: SODIUM CHLORIDE FLUSH 0.9% 10 ML SYRINGE IVP SCH ×3 (01:17→06:34)
[2019-04-06] MEDS: MORPHINE 2 MG/ML CARPUJECT IVP PRN ×2 (02:07→06:34)
[2019-04-06] MEDS: ONDANSETRON 4 MG/2 ML VIAL IVP PRN (02:07)
[2019-04-06] MEDS ORDERED: ZINC OXIDE 20% OINT 30 GM TUBE TOP PRN (03:19)
[2019-04-06 05:33] LABS: BASOPHILS % (AUTO) 1.7 %; EOSINOPHILS % (AUTO) 2.9 %; HGB - HEMOGLOBIN 9.9 g/dL (12.0-16.0); LYMPHOCYTES % (AUTO) 14.9 %; MEAN CORPUSCULAR HEMOGLOBIN 26.9 pg (27.0-31.0); MEAN CORPUSCULAR HGB CONC 31.2 g/dL (32.0-36.0); MEAN CORPUSCULAR VOLUME 86.1 fL (81.0-99.0); MEAN PLATELET VOLUME 11.2 fL (7.9-10.8); MONOCYTES % (AUTO) 16.8 %; NEUTROPHILS % (AUTO) 50.4 %; PLT - PLATELET COUNT 158 10^3/uL (130-450); RED BLOOD COUNT 3.68 10^6/uL (4.20-5.40); RED CELL DISTRIBUTION WIDTH 13.5 % (12.0-15.0); WHITE BLOOD COUNT 5.2 x10^3/uL (4.8-10.8)
[2019-04-06 05:39] LABS: ABNORMAL LYMPHS % (MANUAL) 0 %
[2019-04-06 05:42] LABS: CALCIUM 8.5 mg/dL (8.5-10.3); CREATININE 0.9 mg/dL (0.4-1.0)
[2019-04-06] MEDS: PANTOPRAZOLE 40 MG TABLET PO SCH (06:34)
[2019-04-06 06:36] LABS: BAND NEUTROPHILS % (MANUAL) 14 %; EOSINOPHILS # (MANUAL) 0.1 10^3/uL (0-0.7); LYMPHOCYTES % (MANUAL) 19 %; METAMYELOCYTES % (MANUAL) 8 %; MONOCYTES # (MANUAL) 0.4 10^3/uL (0.0-1.0); MYELOCYTES % (MANUAL) 10 %
[2019-04-06 06:41] LABS: DIFFERENTIAL COMMENT MANUAL DIFFERENTIAL; PLATELET ESTIMATE, MANUAL NORMAL (130-450,000) (NORMAL); RBC MORPHOLOGY (MULTIPLE) NORMAL APPEARANCE (NORMAL)
[2019-04-06] MEDS: INSULIN ASPART 300 UNIT/3 ML PEN SUBQ SCH ×4 (08:05→20:29)
[2019-04-06] MEDS: HEPARIN 5,000 UNIT/ML VIAL SUBQ SCH ×2 (08:05→20:30)
[2019-04-06] MEDS: polyethylene glycoL 3350 17 GM PACKET PO PRN (08:19)
[2019-04-06] MEDS ORDERED: POTASSIUM CHLORIDE 20 MEQ/15 ML UDC PO ONE (08:29)
[2019-04-06] MEDS: carvediloL 12.5 MG TABLET PO SCH ×2 (09:28→20:31)
[2019-04-06 09:43] LABS: HB2 TOTAL 10.2 g/dL; HEMOGLOBIN A1C 0.67 g/dL; HEMOGLOBIN A1C % 8.2 % (4.6-6.2)
[2019-04-06] MEDS: INSULIN GLARGINE 300 UNIT/3 ML PEN SUBQ SCH ×2 (10:23→20:28)
[2019-04-06] MEDS: SODIUM CHLORIDE FLUSH 0.9% 10 ML SYRINGE IVP PRN ×3 (10:33→19:30)
[2019-04-06] MEDS ORDERED: ZOLPIDEM 5 MG TABLET PO PRN (14:06)
[2019-04-06] MEDS ORDERED: LORazepam 0.5 MG TABLET PO PRN (14:08)
--- NOTE | 2019-04-06 14:11 | PROVIDER PROGRESS NOTE ---
Assessment/Plan - Problem List (1) Neutropenic fever Assessment/Plan: 04/06 improved. pt has no more fever or chill. blood culture is pending. WBC is becoming 5.2 today continue antibiotics Cefepime blood culture is pending. (2) Breast cancer Conclusion/Plan: Stage I adenocarcinoma, recurrent cancer. pt state she is followup Dr. Barrett her oncologist. she stated her chemotherapy about two weeks ago. 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 Her Last EF is 45%, In January 2019. continue carvedilol, hold lisinipril for slight lower BP BNP is 78, and hold Lasix for slight lower BP now. continue tele and vital monitor (4) Hypertension Conclusion/Plan: continue carvedilol, hold lisinopril and lasix (5) Diabetes mellitus Conclusion/Plan: A1C is 8.2 continue Lantus 45 units subq bid SSI. Accu check Hold metformin (6) Hyperlipidemia Conclusion/Plan: On simvastatin (7) Asthma Conclusion/Plan: stable, continue Albuterol prn (8)anxiety pt present anxiety, worry about many things, and report she is difficult to sleep because of worry add ativan PRN and Ambien for sleep PRN - Current Meds Current Meds: Current Medications Generic Name Dose Route Start Last Admin Trade Name Freq PRN Reason Stop Dose Admin Carvedilol 12.5 mg 04/06/19 09:00 04/06/19 09:28 Coreg PO 12.5 mg BID JOSE R Administration Heparin Sodium (Beef Lung) 30 - 50 unit 04/06/19 03:20 04/06/19 11:12 IVP 50 unit PRN PRN Administration Port Protocol (<24 hours) Heparin Sodium (Porcine) 5,000 unit 04/06/19 09:00 04/06/19 08:05 SUBQ 5,000 unit BID JOSE R Administration Cefepime HCl 2 gm/ Sodium 100 mls @ 200 mls/hr 04/05/19 23:00 04/06/19 11:12 Chloride IV Infused Q12H JOSE R Infusion Insulin Aspart 2 - 10 unit 04/06/19 08:00 04/06/19 11:33 Novolog SUBQ 6 unit 0800,1200,1700,2100 JOSE R Administration Protocol Insulin Glargine 45 unit 04/06/19 09:00 04/06/19 10:23 Lantus Solostar SUBQ 45 unit BID JOSE R Administration Morphine Sulfate 2 mg 04/06/19 01:28 04/06/19 06:34 Morphine (Carpuject) IVP 2 mg Q3HR PRN Administration PAIN Multi-Ingredient Ointment 1 applic 04/06/19 03:19 04/06/19 06:35 Zinc Oxide TOP 1 applic PRN PRN Administration Skin Care Ondansetron HCl 4 mg 04/06/19 00:00 04/06/19 02:07 Zofran Inj IVP 4 mg Q4HR PRN Administration Nausea / Vomiting Pantoprazole Sodium 40 mg 04/06/19 07:00 04/06/19 06:34 Protonix PO 40 mg QDAC JOSE R Administration Polyethylene Glycol 17 gm 04/06/19 01:30 04/06/19 08:19 Miralax PO 17 gm DAILY PRN Administration Bowel Protocol Sodium Chloride 10 ml 04/05/19 22:54 04/06/19 11:12 Normal Saline Flush 0.9% IVP 10 ml PRN PRN Administration NEEDED PER PROVIDER ORDERS Sodium Chloride 10 ml 04/06/19 01:00 04/06/19 06:34 Normal Saline Flush 0.9% IVP 10 ml 0100,0900,1700 [facility] Administration - Lab Result Fish Bone Diagrams: 04/06/19 05:20 04/06/19 05:20 - Additional Planning My Orders: My Active Orders 04/06/19 08:36 oxyCODONE [Roxicodone] 5 mg PO Q4HR PRN 04/06/19 09:00 carvediloL [Coreg] 12.5 mg PO BID 04/06/19 14:06 Zolpidem [Ambien] 10 mg PO QPM PRN 04/06/19 14:08 LORazepam [Ativan] 0.5 mg PO Q6H PRN 04/06/19 Dinner Consistent-carbohydrate [Carb-controlled Diet] [DIET] Subjective - Subjective Patient Reports: Feeling Better Objective Vital Signs: Vital Signs - 24 hr 04/05/19 04/05/19 04/06/19 19:24 22:35 00:16 Temperature 39.5 C H 38 C H 37.9 C H Heart Rate 100 96 Heart Rate [ 111 H Radial] Respiratory 18 26 H 20 Rate Blood Pressure 138/70 H 124/84 H Blood Pressure [Right Ankle] Blood Pressure 100/49 L [Right Brachial artery] O2 Saturation 90 L 100 91 L 04/06/19 04/06/19 04/06/19 05:20 08:00 11:15 Temperature 37.3 C 37 C Heart Rate 96 Heart Rate [ 90 98 Radial] Respiratory 18 20 18 Rate Blood Pressure Blood Pressure 138/61 H [Right Ankle] Blood Pressure 116/61 [Right Brachial artery] O2 Saturation 98 96 04/06/19 11:59 Temperature 37.4 C Heart Rate Heart Rate [ 95 Radial] Respiratory 18 Rate Blood Pressure Blood Pressure [Right Ankle] Blood Pressure 122/64 [Right Brachial artery] O2 Saturation 98 Oxygen O2 Source Nasal cannula I&O (Last 24 Hrs): Intake and Output Totals x24h 04/04/19 04/05/19 04/06/19 23:59 23:59 23:59 Intake Total 1270 Output Total 800 Balance 470 General: Alert, Oriented x3, No acute distress HEENT: Atraumatic Lymphatic: no adenopathy Neuro: Alert, Non Focal, Oriented Times 3 Cardiovascular: Regular rate, Normal S1, Normal S2 Respiratory: Chest non-tender, No respiratory distress, Breath sounds nml Abdomen: Normal bowel sounds, Soft, No tenderness Extremities: No edema, Normal pulses - Results Results: Laboratory Results WBC 5.2 x10^3/uL (4.8-10.8) 04/06/19 05:20 RBC 3.68 10^6/uL (4.20-5.40) L 04/06/19 05:20 Hgb 9.9 g/dL (12.0-16.0) L 04/06/19 05:20 Hct 31.7 % (37.0-47.0) L 04/06/19 05:20 MCV 86.1 fL (81.0-99.0) 04/06/19 05:20 MCH 26.9 pg (27.0-31.0) L 04/06/19 05:20 MCHC 31.2 g/dL (32.0-36.0) L 04/06/19 05:20 RDW 13.5 % (12.0-15.0) 04/06/19 05:20 Plt Count 158 10^3/uL (130-450) 04/06/19 05:20 MPV 11.2 fL (7.9-10.8) H 04/06/19 05:20 Neut # (Auto) Not Reportable 04/06/19 05:20 Lymph # (Auto) Not Reportable 04/06/19 05:20 [facility] # (Auto) Not Reportable 04/06/19 05:20 Eos # (Auto) Not Reportable 04/06/19 05:20 Baso # (Auto) Not Reportable 04/06/19 05:20 Absolute Nucleated RBC Not Reportable 04/06/19 05:20 Total Counted 100 04/06/19 05:20 Band Neuts % (Manual) 14 % (0-10) H 04/06/19 05:20 Abnorm Lymph % (Manual) 0 % 04/06/19 05:20 Metamyelocytes % 8 % (-0) H 04/06/19 05:20 Myelocytes % 10 % (-0) H 04/06/19 05:20 Nucleated RBC % Not Reportable 04/06/19 05:20 Neutrophils # (Manual) 2.8 10^3/uL (1.5-6.6) 04/06/19 05:20 Lymphocytes # (Manual) 1.0 10^3/uL (1.5-3.5) L 04/06/19 05:20 Monocytes # (Manual) 0.4 10^3/uL (0.0-1.0) 04/06/19 05:20 Eosinophils # (Manual) 0.1 10^3/uL (0-0.7) 04/06/19 05:20 Basophils # (Manual) 0.0 10^3/uL (0-0.1) 04/06/19 05:20 Differential Comment MANUAL DIFFERENTIAL 04/06/19 05:20 Manual Slide Review Indicated 04/05/19 20:55 WBC Morphology 2+ DOHLE BODIES (NORMAL) TOXIC GRANULATION (NORMAL) 04/05/19 20:55 WBC Morphology 1+ TOXIC GRANULATION (NORMAL) 04/06/19 05:20 Platelet Estimate NORMAL (130-450,000) (NORMAL) 04/06/19 05:20 Platelet Morphology RARE GIANT PLATELETS (NORMAL) 04/05/19 20:55 RBC Morph Micro Appear NORMAL APPEARANCE (NORMAL) 04/06/19 05:20 Sodium 136 mmol/L (135-145) 04/06/19 05:20 Potassium 3.4 mmol/L (3.5-5.0) L 04/06/19 05:20 Chloride 95 mmol/L (101-111) L 04/06/19 05:20 Carbon Dioxide 30 mmol/L (21-32) 04/06/19 05:20 Anion Gap 11.0 (6-13) 04/06/19 05:20 BUN 10 mg/dL (6-20) 04/06/19 05:20 Creatinine 0.9 mg/dL (0.4-1.0) 04/06/19 05:20 Estimated GFR (MDRD) 62 (>89) L 04/06/19 05:20 Glucose 200 mg/dL (70-100) H 04/06/19 05:20 Glycated Hemoglobin 8.2 % (4.6-6.2) H 04/06/19 05:20 Estim Average Glucose 189 (70-100) H 04/06/19 05:20 Lactic Acid 1.1 mmol/L (0.5-2.2) 04/05/19 20:55 Calcium 8.5 mg/dL (8.5-10.3) 04/06/19 05:20 Total Bilirubin 0.7 mg/dL (0.2-1.0) 04/05/19 20:55 AST 29 IU/L (10-42) 04/05/19 20:55 ALT 26 IU/L (10-60) 04/05/19 20:55 Alkaline Phosphatase 76 IU/L (42-121) 04/05/19 20:55 B-Natriuretic Peptide 78 pg/mL (5-100) 04/06/19 05:20 Total Protein 7.4 g/dL (6.7-8.2) 04/05/19 20:55 Albumin 3.3 g/dL (3.2-5.5) 04/05/19 20:55 Globulin 4.1 g/dL (2.1-4.2) 04/05/19 20:55 Albumin/Globulin Ratio 0.8 (1.0-2.2) L 04/05/19 20:55 Lipase 18 U/L (22-51) L 04/05/19 20:55 Urine Color YELLOW 04/05/19 21:19 Urine Clarity CLEAR (CLEAR) 04/05/19 21:19 Urine pH 8.0 PH (5.0-7.5) H 04/05/19 21:19 Ur Specific [place] 1.020 (1.002-1.030) 04/05/19 21:19 Urine Protein 30 mg/dL (NEGATIVE) H 04/05/19 21:19 Urine Glucose (UA) NEGATIVE mg/dL (NEGATIVE) 04/05/19 21:19 Urine Ketones 15 mg/dL (NEGATIVE) H 04/05/19 21:19 Urine Occult Blood TRACE-LYSE (NEGATIVE) 04/05/19 21:19 Urine Nitrite NEGATIVE (NEGATIVE) 04/05/19 21: Urine Bilirubin NEGATIVE (NEGATIVE) 04/05/19 21: Urine Urobilinogen 0.2 (NORMAL) E.U./dL (NORMAL) 04/05/19 21:19 Ur Leukocyte Esterase NEGATIVE (NEGATIVE) 04/05/19 21:19 Urine RBC 0-5 /HPF (0-5) 04/05/19 21:19 Urine WBC 0-3 /HPF (0-5) 04/05/19 21:19 Ur Squamous Epith Cells FEW Squamous (<= Few) 04/05/19 21:19 Urine Bacteria None Seen /HPF (None Seen) 04/05/19 21:19 Ur Microscopic Review INDICATED 04/05/19 21: Urine Culture Comments NOT INDICATED 04/05/19 21:19 Influenza A (Rapid) Negative (Negative) 04/05/19 22:05 Influenza B (Rapid) Negative (Negative) 04/05/19 22:05 - Procedures Procedures: Procedures EXCISION OF CHEST SKIN, EXTERNAL APPROACH (03/21/19) INSERTION OF INFUSION DEV INTO SUP VENA CAVA, PERC APPROACH (03/21/19) OCCLUSION OF UPPER ARTERY, OPEN APPROACH (02/08/19) RESECTION OF LEFT BREAST, OPEN APPROACH (02/08/19) ABX Reporting Has patient been on IV antibiotics over the past 48 hours?: Yes Current Medications - Current Medications Current Medications: Active Medications Acetaminophen (Tylenol) 650 mg PO Q6HR PRN PRN Reason: Pain 1 to 4 Albuterol () 2.5 mg INH RTQ4H PRN PRN Reason: Wheezing Carvedilol (Coreg) 12.5 mg PO BID JOSE R Last Admin: 04/06/19 09:28 Dose: 12.5 mg Heparin Sodium (Beef Lung) () 30 - 50 unit IVP PRN PRN PRN Reason: Port Protocol (<24 hours) Last Admin: 04/06/19 11:12 Dose: 50 unit Heparin Sodium (Porcine) () 5,000 unit SUBQ BID [facility] Last Admin: 04/06/19 08:05 Dose: 5,000 unit Cefepime HCl 2 gm/ Sodium (Chloride) 100 mls @ 200 mls/hr IV Q12H [facility] Last Infusion: 04/06/19 11:12 Dose: Infused Insulin Aspart (Novolog) 2 - 10 unit SUBQ 0800,1200,1700,2100 [facility]; Protocol Last Admin: 04/06/19 11:33 Dose: 6 unit Insulin Glargine (Lantus Solostar) 45 unit SUBQ BID [facility] Last Admin: 04/06/19 10:23 Dose: 45 unit Lorazepam (Ativan) 0.5 mg PO Q6H PRN PRN Reason: Anxiety Morphine Sulfate (Morphine (Carpuject)) 2 mg IVP Q3HR PRN PRN Reason: PAIN Last Admin: 04/06/19 06:34 Dose: 2 mg Multi-Ingredient Ointment (Zinc Oxide) 1 applic TOP PRN PRN PRN Reason: Skin Care Last Admin: 04/06/19 06:35 Dose: 1 applic Ondansetron HCl (Zofran Inj) 4 mg IVP Q4HR PRN PRN Reason: Nausea / Vomiting Last Admin: 04/06/19 02:07 Dose: 4 mg Oxycodone HCl (Roxicodone) 5 mg PO Q4HR PRN PRN Reason: PAIN Pantoprazole Sodium (Protonix) 40 mg PO QDAC [facility] Last Admin: 04/06/19 06:34 Dose: 40 mg Polyethylene Glycol (Miralax) 17 gm PO DAILY PRN PRN Reason: Bowel Protocol Last Admin: 04/06/19 08:19 Dose: 17 gm Sodium Chloride (Normal Saline Flush 0.9%) 10 ml IVP PRN PRN PRN Reason: NEEDED PER PROVIDER ORDERS Last Admin: 04/06/19 11:12 Dose: 10 ml Sodium Chloride (Normal Saline Flush 0.9%) 10 ml IVP 0100,0900,1700 [facility] Last Admin: 04/06/19 06:34 Dose: 10 ml Zolpidem Tartrate (Ambien) 10 mg PO QPM PRN PRN Reason: Insomnia Insulin Glargine [Lantus Solostar] 45 units SQ BID 11/17/15 Lisinopril 10 mg PO DAILY 11/17/15 Simvastatin [Zocor] 20 mg PO QPM 11/17/15 carvediloL [Coreg] 12.5 mg PO BID 11/17/15 metFORMIN [Glucophage] 1,000 mg PO BIDWM 11/17/15 Citalopram [CeleXA] 40 mg PO DAILY 12/09/16 Tolterodine [Detrol LA] 2 mg PO BID 12/09/16 Albuterol Sulfate [Proair Hfa Inhaler] 1 - 2 puffs INH Q4H PRN 01/12/19 Furosemide 20 - 40 mg PO DAILY 01/12/19 Ondansetron [Ondansetron Odt] 8 mg PO BID PRN 03/22/19 Prochlorperazine Maleate [Compazine] 1 tab ORAL Q6HR PRN 03/22/19 dexAMETHasone [Dexamethasone] 4 mg PO BID 03/22/19 OLANZapine [Olanzapine] 5 mg PO DAILY PM 04/05/19
[2019-04-06 14:35] LABS: ABSOLUTE RETICS # AUTO 0.009 10^6/uL (0.020-0.110); RED BLOOD COUNT 3.78 10^6/uL (4.20-5.40)
[2019-04-06 15:07] LABS: % IRON SATURATION 7 % (20-50); IRON 21 ug/dL (28-170); TOTAL IRON BINDING CAPACITY 287 ug/dL (250-450); TRANSFERRIN 205 mg/dL (192-382)
[2019-04-06 15:28] LABS: FERRITIN 337.8 ng/mL (11.0-306.8)
[2019-04-06] MEDS: oxyCODONE 5 MG TABLET PO PRN ×2 (16:54→20:31)
[2019-04-06] MEDS: FERROUS SULFATE 325 MG TABLET PO SCH (16:54)
[2019-04-06] MEDS ORDERED: VANCOMYCIN PER PHARMACY 1 GM in SODIUM CHLORIDE 0.9% 250 ML IV SCH (19:00)
--- NOTE | 2019-04-06 19:18 | PHARMACY PROGRESS NOTE ---
- Therapy Status Vancomycin regimen day #: 1 (LD 2g IV x 1, MD = 1250 mg IV q24h per protocol) Therapy status: Awaiting steady state Basis for treatment: Empirical Treatment indication: neutropenic fever Trough goal: 15-20 Concurrent antibiotics: cefepime - HERMAN Risk Acute Kidney Injury risk factors: Goal trough >15, Chronic baseline hypertension, Diabetes - Monitoring and Recommendation Clinical response to treatment: I&O Previous 24 hours 04/04/19 04/05/19 04/06/19 23:59 23:59 23:59 Intake Total 1620 Output Total 900 Balance 720 Lab Results 04/06/19 04/05/19 05:20 20:55 BUN 10 10 Creatinine 0.9 0.8 Estimated GFR (MDRD) 62 L 71 L Cultures 04/05/19 21:19 Urine,Clean Catch Urine Culture - Preliminary CULTURE IN PROGRESS. RESULTS TO FOLLOW. Monitoring plan: Daily serum creatinine Next trough due prior to maintenance dose #: 3 Next trough due (date/time): 04/08/2019 at 1930 prior to dose Areas for additional monitoring: IV to PO when appropriate, Therapy de- escalation based on culture results, Acute Kidney Injury Pharmacy recommendation: Continue current regime (Monitor renal and vanco level, indication and dose adjust as cllinically appropriate; MAYO and initiated per protocol)
[2019-04-06] MEDS ORDERED: VANCOMYCIN INJ 2 GM in SODIUM CHLORIDE 0.9% 500 ML IV ONE (20:00)
--- NOTE | 2019-04-06 20:06 | PHARMACY PROGRESS NOTE ---
- Best Possible Medication History Admit Date and Time: 04/06/19 1004 Processed by: Pharmacy Medication History completed: Yes Patient Interview: Completed Secondary Source(s): Insurance records As the person ultimately responsible for medication therapy, providers are able to order a medication from an existing home medication list in [facility] via the "Reconcile Routine" prior to Confirmation of that medication by pharmacy retail support specialist. Such practice is discouraged except when the physician, in their clinical judgment, deems that a medical need exists for a medication without regard to previous use.
[2019-04-07] MEDS: SODIUM CHLORIDE FLUSH 0.9% 10 ML SYRINGE IVP SCH ×3 (00:35→16:48)
[2019-04-07 04:56] LABS: BASOPHILS % (AUTO) 0.2 %; HGB - HEMOGLOBIN 9.5 g/dL (12.0-16.0); LYMPHOCYTES % (AUTO) 7.3 %; MEAN CORPUSCULAR HEMOGLOBIN 26.9 pg (27.0-31.0); MEAN CORPUSCULAR HGB CONC 30.9 g/dL (32.0-36.0); MEAN PLATELET VOLUME 11.3 fL (7.9-10.8); MONOCYTES % (AUTO) 8.7 %; NEUTROPHILS % (AUTO) 60.8 %; PLT - PLATELET COUNT 160 10^3/uL (130-450); RED BLOOD COUNT 3.53 10^6/uL (4.20-5.40); RED CELL DISTRIBUTION WIDTH 13.9 % (12.0-15.0); WHITE BLOOD COUNT 15.8 x10^3/uL (4.8-10.8)
[2019-04-07 05:06] LABS: ABNORMAL LYMPHS % (MANUAL) 0 %
[2019-04-07 05:07] LABS: CALCIUM 8.1 mg/dL (8.5-10.3); CREATININE 0.7 mg/dL (0.4-1.0)
[2019-04-07 05:41] LABS: BAND NEUTROPHILS % (MANUAL) 12 %; DIFFERENTIAL COMMENT MANUAL DIFFERENTIAL; EOSINOPHILS # (MANUAL) 0.2 10^3/uL (0-0.7); LYMPHOCYTES # (MANUAL) 1.1 10^3/uL (1.5-3.5); LYMPHOCYTES % (MANUAL) 7 %; METAMYELOCYTES % (MANUAL) 7 %; MONOCYTES # (MANUAL) 0.9 10^3/uL (0.0-1.0); MYELOCYTES % (MANUAL) 2 %; PLATELET ESTIMATE, MANUAL NORMAL (130-450,000) (NORMAL); RBC MORPHOLOGY (MULTIPLE) NORMAL APPEARANCE (NORMAL)
[2019-04-07] MEDS: PANTOPRAZOLE 40 MG TABLET PO SCH (06:16)
[2019-04-07] MEDS: FERROUS SULFATE 325 MG TABLET PO SCH (07:53)
[2019-04-07] MEDS: carvediloL 12.5 MG TABLET PO SCH ×2 (07:53→21:17)
[2019-04-07] MEDS: INSULIN ASPART 300 UNIT/3 ML PEN SUBQ SCH ×5 (07:54→21:17)
[2019-04-07] MEDS: HEPARIN 5,000 UNIT/ML VIAL SUBQ SCH ×2 (07:55→21:18)
[2019-04-07] MEDS: INSULIN GLARGINE 300 UNIT/3 ML PEN SUBQ SCH ×2 (07:55→21:17)
[2019-04-07] MEDS ORDERED: POTASSIUM CHLORIDE 20 MEQ TABLET PO SCH (07:59)
[2019-04-07] MEDS ORDERED: oxyCODONE 5 MG TABLET PO PRN (08:05)
--- NOTE | 2019-04-07 08:26 | XRAY Report ---
Reason: SOB Procedure Date: 04/07/2019 Accession Number: [id number] / [id number] Procedure: XR - Chest 1 View X-Ray CPT Code: 75965 Final Report FULL RESULT: EXAM: CHEST RADIOGRAPHY EXAM DATE: 04/07/2019 08:17 AM. CLINICAL HISTORY: Shortness of breath COMPARISON: CHEST 2 VIEW 04/05/2019 8:17 PM. TECHNIQUE: 1 view. FINDINGS: Lungs/Pleura: The right hemidiaphragm is elevated, as before. Mild linear right basilar opacities representing atelectasis or scarring. No focal consolidation or evidence of edema. No pleural effusion or pneumothorax. Mediastinum: Normal cardiomediastinal contour. Other: A right-sided port catheter terminates in the mid SVC, as before. Mild right convex curvature of the mid thoracic spine. IMPRESSION: No acute cardiopulmonary abnormality. [facility]
[2019-04-07] MEDS: CITALOPRAM 10 MG TABLET PO SCH (08:41)
[2019-04-07] MEDS: SACCHAROMYCES BOULARDII 250 MG CAPSULE PO SCH ×2 (08:43→16:48)
[2019-04-07] MEDS: ALBUTEROL NEB 2.5 MG/3 ML INH PRN (10:25)
[2019-04-07] MEDS: CEFEPIME 2 GM in SODIUM CHLORIDE 0.9% MINIBAG 100 ML IV SCH ×2 (11:01→21:47)
--- NOTE | 2019-04-07 12:05 | PROVIDER PROGRESS NOTE ---
Assessment/Plan - Problem List (1) Neutropenic fever Assessment/Plan: 04/07 improved , pt denies chest pain, shortness of breath. but pt still has elevated temperature at 37.8 degree. also pt had significant elevated WBC to 15.8 today. pt had neulasta and Decadron on 03/30/2019, which could contribute to her neutrocytosis. pt's CXR reveals unremarkable. UA is positive for beta hemolytic group B continue antibiotics continue vital monitor, encourage safely ambulate and out of bed. 04/06 improved. pt has no more fever or chill. blood culture is pending. WBC is becoming 5.2 today continue antibiotics Cefepime blood culture is pending. (2) Breast cancer Conclusion/Plan: Stage I adenocarcinoma, recurrent cancer. pt state she is followup Dr. Barrett her oncologist. she stated her chemotherapy about two weeks ago. 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 Her Last EF is 45%, In January 2019. continue carvedilol, hold lisinipril for slight lower BP BNP is 78, and hold Lasix for slight lower BP now. continue tele and vital monitor (5) Hypertension Conclusion/Plan: continue carvedilol, hold lisinopril and lasix (6) Diabetes mellitus Conclusion/Plan: A1C is 8.2 continue Lantus 45 units subq bid SSI. Accu check Hold metformin (7) Hyperlipidemia Conclusion/Plan: On simvastatin (8) Asthma Conclusion/Plan: stable, continue Albuterol prn (9)anxiety pt present anxiety, worry about many things, and report she is difficult to sleep because of worry add ativan PRN and Ambien for sleep PRN - Current Meds Current Meds: Current Medications Generic Name Dose Route Start Last Admin Trade Name Freq PRN Reason Stop Dose Admin Albuterol 2.5 mg 04/05/19 23:58 04/07/19 10:25 INH 2.5 mg RTQ4H PRN Administration Wheezing Carvedilol 12.5 mg 04/06/19 09:00 04/07/19 07:53 Coreg PO 12.5 mg BID JOSE R Administration Citalopram Hydrobromide 40 mg 04/07/19 09:00 04/07/19 08:41 Celexa PO 40 mg DAILY JOSE R Administration Ferrous Sulfate 325 mg 04/06/19 16:00 04/07/19 07:53 Feosol PO 325 mg DAILYWM JOSE R Administration Heparin Sodium (Beef Lung) 30 - 50 unit 04/06/19 03:20 04/06/19 11:12 IVP 50 unit PRN PRN Administration Port Protocol (<24 hours) Heparin Sodium (Porcine) 5,000 unit 04/06/19 09:00 04/07/19 07:55 SUBQ 5,000 unit BID JOSE R Administration Cefepime HCl 2 gm/ Sodium 100 mls @ 200 mls/hr 04/05/19 23:00 04/07/19 11:31 Chloride IV Infused Q12H JOSE R Infusion Insulin Aspart 2 - 10 unit 04/06/19 08:00 04/07/19 11:40 Novolog SUBQ 6 unit 0800,1200,1700,2100 JOSE R Administration Protocol Insulin Glargine 45 unit 04/06/19 09:00 04/07/19 07:55 Lantus Solostar SUBQ 45 unit BID JOSE R Administration Morphine Sulfate 2 mg 04/06/19 01:28 04/06/19 06:34 Morphine (Carpuject) IVP 2 mg Q3HR PRN Administration PAIN Multi-Ingredient Ointment 1 applic 04/06/19 03:19 04/06/19 06:35 Zinc Oxide TOP 1 applic PRN PRN Administration Skin Care Ondansetron HCl 4 mg 04/06/19 00:00 04/06/19 02:07 Zofran Inj IVP 4 mg Q4HR PRN Administration Nausea / Vomiting Pantoprazole Sodium 40 mg 04/06/19 07:00 04/07/19 06:16 Protonix PO 40 mg QDAC JOSE R Administration Polyethylene Glycol 17 gm 04/06/19 01:30 04/06/19 08:19 Miralax PO 17 gm DAILY PRN Administration Bowel Protocol Saccharomyces Boulardii 250 mg 04/07/19 08:03 04/07/19 08:43 Florastor PO 250 mg BIDWM JOSE R Administration Sodium Chloride 10 ml 04/05/19 22:54 04/06/19 19:30 Normal Saline Flush 0.9% IVP 10 ml PRN PRN Administration NEEDED PER PROVIDER ORDERS Sodium Chloride 10 ml 04/06/19 01:00 04/07/19 11:01 Normal Saline Flush 0.9% IVP 10 ml 0100,0900,1700 JOSE R Administration Zolpidem Tartrate 5 mg 04/06/19 14:06 04/06/19 22:16 Ambien PO 5 mg QPM PRN Administration Insomnia - Lab Result Fish Bone Diagrams: 04/07/19 04:35 04/07/19 04:35 - Additional Planning My Orders: My Active Orders 04/06/19 14:06 Zolpidem [Ambien] 5 mg PO QPM PRN 04/06/19 16:00 Ferrous Sulfate [Feosol] 325 mg PO DAILYWM 04/06/19 Dinner Consistent-carbohydrate [Carb-controlled Diet] [DIET] 04/07/19 08:03 Saccharomyces Boulardii [Florastor] 250 mg PO BIDWM 04/07/19 08:18 oxyCODONE [Roxicodone] 5 mg PO Q4HR PRN 04/07/19 09:00 Citalopram [CeleXA] 40 mg PO DAILY 04/07/19 20:00 Vancomycin Inj [Vancomycin] 1,250 gm Sodium Chloride 0.9% [Normal Saline 0.9%] 250 ml IV Q24H 04/08/19 19:30 VANCOMYCIN TROUGH [CHEM] Timed Subjective - Subjective Patient Reports: Feeling Better Objective Vital Signs: Vital Signs - 24 hr 04/06/19 04/06/19 04/06/19 15:38 16:30 16:50 Temperature 37.3 C 37.5 C Heart Rate Heart Rate [ 81 Radial] Respiratory 25 H Rate Blood Pressure 128/50 L [Right Ankle] O2 Saturation 98 98 94 04/06/19 04/06/19 04/06/19 17:20 20:04 20:32 Temperature 37.5 C 37.9 C H Heart Rate 80 Heart Rate [ 82 Radial] Respiratory 22 18 Rate Blood Pressure 127/68 [Right Ankle] O2 Saturation 96 96 94 04/07/19 04/07/19 04/07/19 00:00 00:05 04:35 Temperature 36.4 C L 37.2 C Heart Rate Heart Rate [ 85 82 Radial] Respiratory 22 20 Rate Blood Pressure 129/51 L 132/53 H [Right Ankle] O2 Saturation 89 L 96 95 04/07/19 04/07/19 08:06 10:15 Temperature 37.8 C H Heart Rate 78 Heart Rate [ 87 Radial] Respiratory 16 18 Rate Blood Pressure 123/46 L [Right Ankle] O2 Saturation 96 Oxygen O2 Source Nasal cannula I&O (Last 24 Hrs): Intake and Output Totals x24h 04/05/19 04/06/19 04/07/19 23:59 23:59 23:59 Intake Total 2520 420 Output Total 1150 650 Balance 1370 -230 General: Alert, Oriented x3, No acute distress HEENT: Atraumatic Neck: Supple Lymphatic: no adenopathy Neuro: Alert, Non Focal, Oriented Times 3 Cardiovascular: Regular rate, Normal S1, Normal S2 Respiratory: Chest non-tender, No respiratory distress, Breath sounds nml Abdomen: Normal bowel sounds, Soft, No tenderness Extremities: No edema, Normal pulses - Results Results: Laboratory Results WBC 15.8 x10^3/uL (4.8-10.8) H 04/07/19 04:35 RBC 3.53 10^6/uL (4.20-5.40) L 04/07/19 04:35 Hgb 9.5 g/dL (12.0-16.0) L 04/07/19 04:35 Hct 30.7 % (37.0-47.0) L 04/07/19 04:35 MCV 87.0 fL (81.0-99.0) 04/07/19 04:35 MCH 26.9 pg (27.0-31.0) L 04/07/19 04:35 MCHC 30.9 g/dL (32.0-36.0) L 04/07/19 04:35 RDW 13.9 % (12.0-15.0) 04/07/19 04:35 Plt Count 160 10^3/uL (130-450) 04/07/19 04:35 MPV 11.3 fL (7.9-10.8) H 04/07/19 04:35 Reticulocyte % (Auto) 0.24 % (0.5-2.3) L 04/06/19 14:27 Neut # (Auto) Not Reportable 04/07/19 04:35 Lymph # (Auto) Not Reportable 04/07/19 04:35 Delta # (Auto) Not Reportable 04/07/19 04:35 Eos # (Auto) Not Reportable 04/07/19 04:35 Baso # (Auto) Not Reportable 04/07/19 04:35 Absolute Nucleated RBC Not Reportable 04/07/19 04:35 Total Counted 100 04/07/19 04:35 Band Neuts % (Manual) 12 % (0-10) H 04/07/19 04:35 Abnorm Lymph % (Manual) 0 % 04/07/19 04:35 Metamyelocytes % 7 % (-0) H 04/07/19 04:35 Myelocytes % 2 % (-0) H 04/07/19 04:35 Nucleated RBC % Not Reportable 04/07/19 04:35 Neutrophils # (Manual) 12.2 10^3/uL (1.5-6.6) H 04/07/19 04:35 Lymphocytes # (Manual) 1.1 10^3/uL (1.5-3.5) L 04/07/19 04:35 Monocytes # (Manual) 0.9 10^3/uL (0.0-1.0) 04/07/19 04:35 Eosinophils # (Manual) 0.2 10^3/uL (0-0.7) 04/07/19 04:35 Basophils # (Manual) 0.0 10^3/uL (0-0.1) 04/07/19 04:35 Differential Comment MANUAL DIFFERENTIAL 04/07/19 04:35 Manual Slide Review Indicated 04/05/19 20:55 WBC Morphology 2+ DOHLE BODIES (NORMAL) TOXIC GRANULATION (NORMAL) 04/05/19 20:55 WBC Morphology 1+ TOXIC GRANULATION (NORMAL) 04/06/19 05:20 Platelet Estimate NORMAL (130-450,000) (NORMAL) 04/07/19 04:35 Platelet Morphology RARE GIANT PLATELETS (NORMAL) 04/05/19 20:55 RBC Morph Micro Appear NORMAL APPEARANCE (NORMAL) 04/07/19 04:35 Absolute Retic 0.009 10^6/uL (0.020-0.110) L 04/06/19 14:27 Sodium 135 mmol/L (135-145) 04/07/19 04:35 Potassium 3.2 mmol/L (3.5-5.0) L 04/07/19 04:35 Chloride 97 mmol/L (101-111) L 04/07/19 04:35 Carbon Dioxide 29 mmol/L (21-32) 04/07/19 04:35 Anion Gap 9.0 (6-13) 04/07/19 04:35 BUN 9 mg/dL (6-20) 04/07/19 04:35 Creatinine 0.7 mg/dL (0.4-1.0) 04/07/19 04:35 Estimated GFR (MDRD) 82 (>89) L 04/07/19 04:35 Glucose 132 mg/dL (70-100) H 04/07/19 04:35 Glycated Hemoglobin 8.2 % (4.6-6.2) H 04/06/19 05:20 Estim Average Glucose 189 (70-100) H 04/06/19 05:20 Lactic Acid 1.1 mmol/L (0.5-2.2) 04/05/19 20:55 Calcium 8.1 mg/dL (8.5-10.3) L 04/07/19 04:35 Iron 21 ug/dL (28-170) L 04/06/19 14:27 TIBC 287 ug/dL (250-450) 04/06/19 14:27 % Saturation 7 % (20-50) L 04/06/19 14:27 Transferrin 205 mg/dL (192-382) 04/06/19 14:27 Ferritin 337.8 ng/mL (11.0-306.8) H 04/06/19 14:27 Total Bilirubin 0.7 mg/dL (0.2-1.0) 04/05/19 20:55 AST 29 IU/L (10-42) 04/05/19 20:55 ALT 26 IU/L (10-60) 04/05/19 20:55 Alkaline Phosphatase 76 IU/L (42-121) 04/05/19 20:55 Lactate Dehydrogenase 352 IU/L (91-225) H 04/06/19 14:27 B-Natriuretic Peptide 78 pg/mL (5-100) 04/06/19 05:20 Total Protein 7.4 g/dL (6.7-8.2) 04/05/19 20:55 Albumin 3.3 g/dL (3.2-5.5) 04/05/19 20:55 Globulin 4.1 g/dL (2.1-4.2) 04/05/19 20:55 Albumin/Globulin Ratio 0.8 (1.0-2.2) L 04/05/19 20:55 Lipase 18 U/L (22-51) L 04/05/19 20:55 Vitamin B12 683 pg/mL (180-914) 04/06/19 14:27 Urine Color YELLOW 04/05/19 21:19 Urine Clarity CLEAR (CLEAR) 04/05/19 21:19 Urine pH 8.0 PH (5.0-7.5) H 04/05/19 21:19 Ur Specific [place] 1.020 (1.002-1.030) 04/05/19 21:19 Urine Protein 30 mg/dL (NEGATIVE) H 04/05/19 21:19 Urine Glucose (UA) NEGATIVE mg/dL (NEGATIVE) 04/05/19 21:19 Urine Ketones 15 mg/dL (NEGATIVE) H 04/05/19 21:19 Urine Occult Blood TRACE-LYSE (NEGATIVE) 04/05/19 21:19 Urine Nitrite NEGATIVE (NEGATIVE) 04/05/19 21:19 Urine Bilirubin NEGATIVE (NEGATIVE) 04/05/19 21:19 Urine Urobilinogen 0.2 (NORMAL) E.U./dL (NORMAL) 04/05/19 21:19 Ur Leukocyte Esterase NEGATIVE (NEGATIVE) 04/05/19 21:19 Urine RBC 0-5 /HPF (0-5) 04/05/19 21:19 Urine WBC 0-3 /HPF (0-5) 04/05/19 21:19 Ur Squamous Epith Cells FEW Squamous (<= Few) 04/05/19 21:19 Urine Bacteria None Seen /HPF (None Seen) 04/05/19 21:19 Ur Microscopic Review INDICATED 04/05/19 21:19 Urine Culture Comments NOT INDICATED 04/05/19 21:19 Influenza A (Rapid) Negative (Negative) 04/05/19 22:05 Influenza B (Rapid) Negative (Negative) 04/05/19 22:05 - Procedures Procedures: Procedures EXCISION OF CHEST SKIN, EXTERNAL APPROACH (03/21/19) INSERTION OF INFUSION DEV INTO SUP VENA CAVA, PERC APPROACH (03/21/19) OCCLUSION OF UPPER ARTERY, OPEN APPROACH (02/08/19) RESECTION OF LEFT BREAST, OPEN APPROACH (02/08/19) ABX Reporting Has patient been on IV antibiotics over the past 48 hours?: Yes Current Medications - Current Medications Current Medications: Active Medications Acetaminophen (Tylenol) 650 mg PO Q6HR PRN PRN Reason: Pain 1 to 4 Albuterol () 2.5 mg INH RTQ4H PRN PRN Reason: Wheezing Last Admin: 04/07/19 10:25 Dose: 2.5 mg Carvedilol (Coreg) 12.5 mg PO BID [facility] Last Admin: 04/07/19 07:53 Dose: 12.5 mg Citalopram Hydrobromide (Celexa) 40 mg PO DAILY [facility] Last Admin: 04/07/19 08:41 Dose: 40 mg Ferrous Sulfate (Feosol) 325 mg PO DAILYWM [facility] Last Admin: 04/07/19 07:53 Dose: 325 mg Heparin Sodium (Beef Lung) () 30 - 50 unit IVP PRN PRN PRN Reason: Port Protocol (<24 hours) Last Admin: 04/06/19 11:12 Dose: 50 unit Heparin Sodium (Porcine) () 5,000 unit SUBQ BID [facility] Last Admin: 04/07/19 07:55 Dose: 5,000 unit Cefepime HCl 2 gm/ Sodium (Chloride) 100 mls @ 200 mls/hr IV Q12H [facility] Last Infusion: 04/07/19 11:31 Dose: Infused Vancomycin HCl 1,250 gm/ (Sodium Chloride) 250 mls @ 167 mls/hr IV Q24H [facility] Insulin Aspart (Novolog) 2 - 10 unit SUBQ 0800,1200,1700,2100 [facility]; Protocol Last Admin: 04/07/19 11:40 Dose: 6 unit Insulin Glargine (Lantus Solostar) 45 unit SUBQ BID [facility] Last Admin: 04/07/19 07:55 Dose: 45 unit Morphine Sulfate (Morphine (Carpuject)) 2 mg IVP Q3HR PRN PRN Reason: PAIN Last Admin: 04/06/19 06:34 Dose: 2 mg Multi-Ingredient Ointment (Zinc Oxide) 1 applic TOP PRN PRN PRN Reason: Skin Care Last Admin: 04/06/19 06:35 Dose: 1 applic Ondansetron HCl (Zofran Inj) 4 mg IVP Q4HR PRN PRN Reason: Nausea / Vomiting Last Admin: 04/06/19 02:07 Dose: 4 mg Oxycodone HCl (Roxicodone) 5 mg PO Q4HR PRN PRN Reason: PAIN Pantoprazole Sodium (Protonix) 40 mg PO QDAC [facility] Last Admin: 04/07/19 06:16 Dose: 40 mg Polyethylene Glycol (Miralax) 17 gm PO DAILY PRN PRN Reason: Bowel Protocol Last Admin: 04/06/19 08:19 Dose: 17 gm Saccharomyces Boulardii (Florastor) 250 mg PO BIDWM [facility] Last Admin: 04/07/19 08:43 Dose: 250 mg Sodium Chloride (Normal Saline Flush 0.9%) 10 ml IVP PRN PRN PRN Reason: NEEDED PER PROVIDER ORDERS Last Admin: 04/06/19 19:30 Dose: 10 ml Sodium Chloride (Normal Saline Flush 0.9%) 10 ml IVP 0100,0900,1700 [facility] Last Admin: 04/07/19 11:01 Dose: 10 ml Zolpidem Tartrate (Ambien) 5 mg PO QPM PRN PRN Reason: Insomnia Last Admin: 04/06/19 22:16 Dose: 5 mg Insulin Glargine [Lantus Solostar] 45 units SQ BID 11/17/15 Lisinopril 10 mg PO DAILY 11/17/15 Simvastatin [Zocor] 20 mg PO QPM 11/17/15 carvediloL [Coreg] 12.5 mg PO BID 11/17/15 metFORMIN [Glucophage] 1,000 mg PO BIDWM 11/17/15 Citalopram [CeleXA] 40 mg PO DAILY 12/09/16 Tolterodine [Detrol LA] 2 mg PO BID 12/09/16 Albuterol Sulfate [Proair Hfa Inhaler] 1 - 2 puffs INH Q4H PRN 01/12/19 Furosemide 20 - 40 mg PO DAILY 01/12/19 Ondansetron [Ondansetron Odt] 8 mg PO BID PRN 03/22/19 Lidocaine/Prilocain 2.5% Cream [Emla 2.5% Cream] 1 applic TOP Q8HR PRN 04/06/19
[2019-04-07] MEDS: polyethylene glycoL 3350 17 GM PACKET PO PRN (15:41)
[2019-04-07] MEDS ORDERED: MINERAL OIL ENEMA 133 ML BOTTLE RC ONE (19:00)
[2019-04-07] MEDS: VANCOMYCIN INJ 1 GM, VANCOMYCIN INJ 250 MG in SODIUM CHLORIDE 0.9% 250 ML IV SCH (19:46)
[2019-04-07] MEDS ORDERED: SODIUM CHLORIDE 0.9% IV SCH (20:00)
[2019-04-07] MEDS ORDERED: VANCOMYCIN IV SCH (20:00)
[2019-04-07] MEDS: ONDANSETRON 4 MG/2 ML VIAL IVP PRN (21:08)
[2019-04-07] MEDS: SODIUM CHLORIDE FLUSH 0.9% 10 ML SYRINGE IVP PRN (21:08)
[2019-04-07] MEDS: oxyCODONE 5 MG TABLET PO PRN (21:47)
[2019-04-07] MEDS: MORPHINE 2 MG/ML CARPUJECT IVP PRN (22:28)
[2019-04-08] MEDS: SODIUM CHLORIDE FLUSH 0.9% 10 ML SYRINGE IVP SCH ×3 (00:45→16:58)
[2019-04-08 04:31] LABS: BASOPHILS % (AUTO) 0.1 %; EOSINOPHILS # (AUTO) 0.1 10^3/uL (0.0-0.7); EOSINOPHILS % (AUTO) 0.5 %; HGB - HEMOGLOBIN 9.1 g/dL (12.0-16.0); LYMPHOCYTES # (AUTO) 1.5 10^3/uL (1.5-3.5); LYMPHOCYTES % (AUTO) 6.9 %; MEAN CORPUSCULAR HEMOGLOBIN 27.1 pg (27.0-31.0); MEAN CORPUSCULAR VOLUME 87.5 fL (81.0-99.0); MEAN PLATELET VOLUME 11.1 fL (7.9-10.8); MONOCYTES # (AUTO) 1.4 10^3/uL (0.0-1.0); MONOCYTES % (AUTO) 6.5 %; NEUTROPHILS # (AUTO) 14.1 10^3/uL (1.5-6.6); NEUTROPHILS % (AUTO) 64.9 %; PLT - PLATELET COUNT 160 10^3/uL (130-450); RED BLOOD COUNT 3.36 10^6/uL (4.20-5.40); RED CELL DISTRIBUTION WIDTH 14.1 % (12.0-15.0); WHITE BLOOD COUNT 21.7 x10^3/uL (4.8-10.8)
[2019-04-08 04:40] LABS: CALCIUM 8.3 mg/dL (8.5-10.3); CREATININE 0.8 mg/dL (0.4-1.0)
[2019-04-08] MEDS: oxyCODONE 5 MG TABLET PO PRN (04:43)
[2019-04-08] MEDS: PANTOPRAZOLE 40 MG TABLET PO SCH (06:03)
[2019-04-08] MEDS: MORPHINE 2 MG/ML CARPUJECT IVP PRN ×3 (06:06→17:17)
[2019-04-08] MEDS ORDERED: IOVERSOL 320 100 ML VIAL IVP ONE ×2 (09:06→10:20)
[2019-04-08] MEDS: INSULIN GLARGINE 300 UNIT/3 ML PEN SUBQ SCH ×2 (09:45→21:21)
[2019-04-08] MEDS: INSULIN ASPART 300 UNIT/3 ML PEN SUBQ SCH ×4 (09:45→21:22)
[2019-04-08] MEDS: SACCHAROMYCES BOULARDII 250 MG CAPSULE PO SCH ×2 (09:55→17:16)
[2019-04-08] MEDS: CITALOPRAM 10 MG TABLET PO SCH (09:55)
[2019-04-08] MEDS: carvediloL 12.5 MG TABLET PO SCH ×2 (09:56→21:22)
[2019-04-08] MEDS: polyethylene glycoL 3350 17 GM PACKET PO PRN (09:57)
[2019-04-08] MEDS: HEPARIN 5,000 UNIT/ML VIAL SUBQ SCH ×2 (10:01→21:23)
[2019-04-08] MEDS: CEFEPIME 2 GM in SODIUM CHLORIDE 0.9% MINIBAG 100 ML IV SCH ×2 (10:20→21:59)
[2019-04-08] MEDS: FERROUS SULFATE 325 MG TABLET PO SCH (10:31)
--- NOTE | 2019-04-08 10:39 | CT Report ---
Reason: if port and surgery site infection, fluid collecti Procedure Date: 04/08/2019 Accession Number: [id number] / [id number] Procedure: CT - CHEST W CPT Code: Addended Final Report FULL RESULT: EXAM: CT CHEST EXAM DATE: 04/08/2019 09:30 AM. CLINICAL HISTORY: If port and surgery site infection, fluid collecti. COMPARISONS: None. TECHNIQUE: Routine helical CT imaging was performed through the chest. IV contrast: 80 cc of Omnipaque 320. Reconstructions: Coronal and sagittal. In accordance with CT protocol optimization, one or more of the following dose reduction techniques were utilized for this exam: automated exposure control, adjustment of mA and/or KV based on patient size, or use of iterative reconstructive technique. FINDINGS: Lungs/Pleura: No mass or infiltrate is seen within the lung bases. There is no pleural effusion or pneumothorax seen. Mediastinum: There is no mediastinal mass or lymphadenopathy. Atherosclerosis of the coronary arteries is noted. Bones: There are degenerative changes of the thoracic spine with scoliosis convex to the right. Visualized Abdomen: Calcifications are seen within the liver that most likely represent old granulomatous disease. No enhancing masses seen. Gallstones are noted within the gallbladder. There is no evidence of intrahepatic biliary duct dilatation. The spleen, pancreas, and adrenal glands are without evidence of a mass. The visualized kidneys are without evidence of hydronephrosis. Other: There are postoperative changes consistent with a left mastectomy. A fluid collection is noted in the adjacent soft tissues measuring approximately 2.3 x 3.4 x 2.6 cm. Adjacent fat stranding is noted. No gas density is seen within. This may represent a seroma or abscess. The overlying skin is thickened that may be secondary to a cellulitis or postop inflammatory changes. There is a right chest port. No fluid collection is seen surrounding it. IMPRESSION: Small fluid collection at the left mastectomy site that may represent an abscess or seroma. Thickening of the skin at the left mastectomy site that may represent cellulitis or normal postoperative inflammatory changes. Atherosclerosis of the aorta and its branches, including the coronary arteries. Cholelithiasis without evidence of obstruction. [facility] The call report notification system was initiated by Dr. Eva Mcgee at 10:39 AM on 04/08/2019. ADDENDUM: 04/08/19 10:59 The above call report findings were discussed with Dr. [place] by Dr. Eva Mcgee at 10:59 AM on 04/08/2019.
--- NOTE | 2019-04-08 12:34 | PROVIDER PROGRESS NOTE ---
Subjective - Prog Note Date Prog Note Date: 04/08/19 - Subjective Pt reports feeling: Improved Subjective: pt denies fever at the morning but she report she feel warm at the night. pt did have tem at 37.8 degree again on last night. pt's WBC increased to 21.7H today from yesterday 15.8H. check pt's right upper chest port, see very mild erythema but no tenderness. pt report she had mastectomy on her left breast about 2 months. There is small drainage at the surgery site, and tenderness and erythema on the lateral of left chest surgery site. Discussed with today surgeon Dr. Craig, and order CT of chest. CT reveals small size 2.3x3.4x2.6 cm fluid collection at the left mastectomy site, and cellulitis or inflammatory changes in left mastectomy site. surgeon will followup. Current Medications - Current Medications Current Medications: Active Medications Acetaminophen (Tylenol) 650 mg PO Q6HR PRN PRN Reason: Pain 1 to 4 Last Admin: 04/08/19 09:56 Dose: 650 mg Albuterol () 2.5 mg INH RTQ4H PRN PRN Reason: Wheezing Last Admin: 04/07/19 10:25 Dose: 2.5 mg Carvedilol (Coreg) 12.5 mg PO BID [facility] Last Admin: 04/08/19 09:56 Dose: 12.5 mg Citalopram Hydrobromide (Celexa) 40 mg PO DAILY [facility] Last Admin: 04/08/19 09:55 Dose: 40 mg Ferrous Sulfate (Feosol) 325 mg PO DAILYWM [facility] Last Admin: 04/08/19 10:31 Dose: 325 mg Heparin Sodium (Beef Lung) () 30 - 50 unit IVP PRN PRN PRN Reason: Port Protocol (<24 hours) Last Admin: 04/06/19 11:12 Dose: 50 unit Heparin Sodium (Porcine) () 5,000 unit SUBQ BID [facility] Last Admin: 04/08/19 10:01 Dose: 5,000 unit Cefepime HCl 2 gm/ Sodium (Chloride) 100 mls @ 200 mls/hr IV Q12H [facility] Last Infusion: 04/08/19 10:50 Dose: Infused Vancomycin HCl 1 gm/Vancomycin HCl 250 mg/ Sodium Chloride 250 mls @ 167 mls/hr IV Q24H [facility] Last Infusion: 04/07/19 21:31 Dose: Infused Insulin Aspart (Novolog) 3 - 11 unit SUBQ 0800,1200,1700,2100 [facility]; Protocol Last Admin: 04/08/19 11:57 Dose: 9 unit Insulin Glargine (Lantus Solostar) 45 unit SUBQ BID [facility] Last Admin: 04/08/19 09:45 Dose: 45 unit Morphine Sulfate (Morphine (Carpuject)) 2 mg IVP Q3HR PRN PRN Reason: PAIN Last Admin: 04/08/19 06:06 Dose: 2 mg Multi-Ingredient Ointment (Zinc Oxide) 1 applic TOP PRN PRN PRN Reason: Skin Care Last Admin: 04/06/19 06:35 Dose: 1 applic Ondansetron HCl (Zofran Inj) 4 mg IVP Q4HR PRN PRN Reason: Nausea / Vomiting Last Admin: 04/07/19 21:08 Dose: 4 mg Oxycodone HCl (Roxicodone) 5 mg PO Q4HR PRN PRN Reason: PAIN Last Admin: 04/08/19 04:43 Dose: 5 mg Pantoprazole Sodium (Protonix) 40 mg PO QDAC [facility] Last Admin: 04/08/19 06:03 Dose: 40 mg Polyethylene Glycol (Miralax) 17 gm PO DAILY PRN PRN Reason: Bowel Protocol Last Admin: 04/08/19 09:57 Dose: 17 gm Saccharomyces Boulardii (Florastor) 250 mg PO BIDWM [facility] Last Admin: 04/08/19 09:55 Dose: 250 mg Sodium Chloride (Normal Saline Flush 0.9%) 10 ml IVP PRN PRN PRN Reason: NEEDED PER PROVIDER ORDERS Last Admin: 04/07/19 21:08 Dose: 10 ml Sodium Chloride (Normal Saline Flush 0.9%) 10 ml IVP 0100,0900,1700 [facility] Last Admin: 04/08/19 10:20 Dose: 10 ml Zolpidem Tartrate (Ambien) 5 mg PO QPM PRN PRN Reason: Insomnia Last Admin: 04/06/19 22:16 Dose: 5 mg Insulin Glargine [Lantus Solostar] 45 units SQ BID 11/17/15 Lisinopril 10 mg PO DAILY 11/17/15 Simvastatin [Zocor] 20 mg PO QPM 11/17/15 carvediloL [Coreg] 12.5 mg PO BID 11/17/15 metFORMIN [Glucophage] 1,000 mg PO BIDWM 11/17/15 Citalopram [CeleXA] 40 mg PO DAILY 12/09/16 Tolterodine [Detrol LA] 2 mg PO BID 12/09/16 Albuterol Sulfate [Proair Hfa Inhaler] 1 - 2 puffs INH Q4H PRN 01/12/19 Furosemide 20 - 40 mg PO DAILY 01/12/19 Ondansetron [Ondansetron Odt] 8 mg PO BID PRN 03/22/19 Lidocaine/Prilocain 2.5% Cream [Emla 2.5% Cream] 1 applic TOP Q8HR PRN 04/06/19 Objective - Vital Signs/Intake & Output Reviewed Vital Signs: Yes Vital Signs: Vital Signs x48h Temp Pulse Resp BP Pulse Ox 04/08/19 10:47 36.8 C 20 150/62 H 91 L 04/08/19 09:00 36.9 C 82 20 141/67 H 93 04/08/19 05:00 37.4 C 80 20 131/86 H 95 Intake & Output: Intake & Output 04/05/19 04/06/19 04/07/19 04/08/19 23:59 23:59 23:59 23:59 Intake Total 2520 1010 660 Output Total 1150 700 Balance 1370 310 660 - Objective General Appearance: positive: No acute distress, Alert. negative: Lethargic Eyes Bilateral: positive: Normal inspection, PERRL, No lid inflammation ENT: positive: ENT inspection nml, Pharynx nml, No signs of dehydration. negative: Purulent nasal drainage Neck: positive: Nml inspection, Thyroid nml, No JVD, Trachea midline. negative: Thyromegaly, Lymphadenopathy (R), Lymphadenopathy (L), Stiff neck, Tracheal deviation Respiratory: positive: No respiratory distress, Breath sounds nml. negative: Wheezes, Rales, Rhonchi Cardiovascular: positive: Regular rate & rhythm, No murmur, No gallop. negative: Irregularly irregular, Extrasystoles, Tachycardia, Bradycardia, JVD present, Systolic murmur, Diastolic murmur Peripheral Pulses: 2+ Radial (R), 2+ Radial (L), 2+ Dorsalis pedis (R), 2+ Dorsalis pedis (L) Abdomen: positive: Non-tender, No organomegaly, Nml bowel sounds, No distention. negative: Tenderness, Guarding, Rebound Back: positive: Nml inspection. negative: CVA tenderness (R), CVA tenderness (L) Skin: positive: Warm, Dry, Laceration (cm). negative: Cyanosis, Diaphoresis, Pallor Extremities: positive: Non-tender, Full ROM, Nml appearance. negative: Calf tenderness, Leo's sign/cords Neurologic/Psychiatric: positive: Oriented x3, Motor nml, Sensation nml, Mood/affect nml. negative: Weakness, Sensory loss, Facial droop, Slurred/abnml speech, Depressed mood/affect - Lab Results Fish Bones: 04/08/19 04:15 04/08/19 04:15 Other Labs: Lab Results x24hrs 04/08/19 04/08/19 04/08/19 Range/Units 07:48 04:15 04:15 WBC 21.7 H (4.8-10.8) x10^3/uL RBC 3.36 L (4.20-5.40) 10^6/uL Hgb 9.1 L (12.0-16.0) g/dL Hct 29.4 L (37.0-47.0) % MCV 87.5 (81.0-99.0) fL MCH 27.1 (27.0-31.0) pg MCHC 31.0 L (32.0-36.0) g/dL RDW 14.1 (12.0-15.0) % Plt Count 160 (130-450) 10^3/uL MPV 11.1 H (7.9-10.8) fL Neut # (Auto) 14.1 H (1.5-6.6) 10^3/uL Lymph # (Auto) 1.5 (1.5-3.5) 10^3/uL [place] # (Auto) 1.4 H (0.0-1.0) 10^3/uL Eos # (Auto) 0.1 (0.0-0.7) 10^3/uL Baso # (Auto) 0.0 (0.0-0.1) 10^3/uL Absolute Nucleated RBC 0.24 x10^3/uL Nucleated RBC % 1.1 /100WBC Sodium 136 (135-145) mmol/L Potassium 3.6 (3.5-5.0) mmol/L Chloride 96 L (101-111) mmol/L Carbon Dioxide 29 (21-32) mmol/L Anion Gap 11.0 (6-13) BUN 7 (6-20) mg/dL Creatinine 0.8 (0.4-1.0) mg/dL Estimated GFR (MDRD) 71 L (>89) Glucose 172 H (70-100) mg/dL Lactic Acid 0.8 (0.5-2.2) mmol/L Calcium 8.3 L (8.5-10.3) mg/dL ABX Reporting Has patient been on IV antibiotics over the past 48 hours?: Yes Assessment/Plan - Problem List (1) Abscess after procedure Impression: 04/08 There is small drainage at the surgery site, and tenderness and erythema on the lateral of left chest surgery site. order CT of chest. CT reveals small size 2.3x3.4x2.6 cm fluid collection at the left mastectomy site, and small drainage and cellulitis at surgery site. consult with surgeon, will followup wound culture, and wound care consult continue Cefepime and Vancomycin (2) fever 04/08 temperature at 37.8 degree again. it is likely from the abscess. will consult with surgeon. continue antibiotics slight hydration, pt had contrast CT, to have hydration for protection of her kidney, and slight elevated creatinine 04/07 improved , pt denies chest pain, shortness of breath. but pt still has elevated temperature at 37.8 degree. also pt had significant elevated WBC to 15.8 today. pt had neulasta and Decadron on 03/30/2019, which could contribute to her neutrocytosis. pt's CXR reveals unremarkable. UA is positive for beta hemolytic group B continue antibiotics continue vital monitor, encourage safely ambulate and out of bed. 04/06 improved. pt has no more fever or chill. blood culture is pending. WBC is becoming 5.2 today continue antibiotics Cefepime blood culture is pending. (3)neutrocytosis 04/08 pt's WBC increased to 21.7 today, it could be combination of infection and recently used extended released neulasta, and steroid. continue antibiotics and surgeon consult, may have I/D to drainage of abscess. continue lab monitor, might consult hemotologist or pt's oncologist Dr. Barrett if pt continue elevated her WBC. (4) Breast cancer Conclusion/Plan: Stage I adenocarcinoma, recurrent cancer. pt state she is followup Dr. Barrett her oncologist. she stated her chemotherapy about two weeks ago. 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 Her Last EF is 45%, In January 2019. continue carvedilol, hold lisinipril for slight lower BP BNP is 78, and hold Lasix for slight lower BP now. continue tele and vital monitor (7) Hypertension Conclusion/Plan: continue carvedilol, hold lisinopril and lasix (8) Diabetes mellitus Conclusion/Plan: A1C is 8.2 continue Lantus 45 units subq bid SSI. Accu check Hold metformin (9) Hyperlipidemia Conclusion/Plan: On simvastatin (10) Asthma Conclusion/Plan: stable, continue Albuterol prn (11)anxiety pt present anxiety, worry about many things, and report she is difficult to sleep because of worry add ativan PRN and Ambien for sleep PRN
[2019-04-08] MEDS ORDERED: SODIUM CHLORIDE 0.9% 1,000 ML IV SCH ×2 (13:00)
--- NOTE | 2019-04-08 17:25 | CONSULTATION NOTE ---
Referring Provider Name of Referring Provider:: Dr. 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 She underwent mastectomy in January and on Mar 21 had a port placed and a debridement of mastectomy eschar. Has been recuperating at home and has started chemotherapy. She fell, which she describes as mechanical, and was unable to get up. She was taken to the ED for evaluation with no physical injuries but a high fever. She is admitted for management. She has a UTI, which she says she gets frequently. Concern for her mastectomy incision arose and surgery is consulted. She is on antibiotics and has no positive blood cultures; her port is not infected and should be fine to remain in place. Her mastectomy incision still has sutures in place and has some fibrinous exudate and scab along its length. CT shows a small volume fluid collection with no tissue stranding or rim enhancement. Exam shows no cellulitis, tense fluid, or significant tenderness. Pt's main complaint when seen is constipation which is being addressed. 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 sister: breast cancer in late 40's Living arrangement: At home Living Situation: With spouse/s.o. Social History Notes: She does not smoke, drink or use illicit drugs - POLST Patient has POLST: No POLST Status: Full Code Meds/Allgy - Home Medications Home Medications: Ambulatory Orders Medication Instructions Recorded Confirmed Insulin Glargine [Lantus Solostar] 45 units SQ BID 11/17/15 04/06/19 Lisinopril 10 mg PO DAILY 11/17/15 04/06/19 Simvastatin [Zocor] 20 mg PO QPM 11/17/15 04/06/19 carvediloL [Coreg] 12.5 mg PO BID 11/17/15 04/06/19 metFORMIN [Glucophage] 1,000 mg PO BIDWM 11/17/15 04/06/19 Citalopram [CeleXA] 40 mg PO DAILY 12/09/16 04/06/19 Tolterodine [Detrol LA] 2 mg PO BID 12/09/16 04/06/19 Albuterol Sulfate [Proair Hfa 1 - 2 puffs INH Q4H PRN 01/12/19 04/06/19 Inhaler] Furosemide 20 - 40 mg PO DAILY 01/12/19 04/06/19 oxyCODONE [Roxicodone] 5 mg PO Q4-6H PRN #20 tablet 03/21/19 04/06/19 Ondansetron [Ondansetron Odt] 8 mg PO BID PRN 03/22/19 04/06/19 Lidocaine/Prilocain 2.5% Cream 1 applic TOP Q8HR PRN 04/06/19 04/06/19 [Emla 2.5% Cream] - Allergies Allergies/Adverse Reactions: Allergies Allergy/AdvReac Type Severity Reaction Status Date / Time adhesive tape Allergy skin nelson Verified 03/16/19 10:46 Penicillins Allergy Anaphylaxis Verified 03/16/19 10:46 Review of Systems - Constitutional Constitutional: reports: Fever, Weakness - Gastrointestinal Gastrointestinal: reports: Constipation - Genitourinary Genitourinary: reports: Incontinence. denies: Dysuria - All Other Systems All Other Systems: reports: Reviewed and negative Exam - Vital Signs Vital Signs: Vital Signs x48h Temp Pulse Resp BP Pulse Ox 04/08/19 16:44 36.8 C 85 18 135/80 H 95 04/08/19 10:47 36.8 C 20 150/62 H 91 L - Physical Exam Comments/Other: AAO, NAD, obese female EOMI, MMM, no scleral icterus R chest wall port site c/d/i with no fluid or erythema; L mastectomy site with sutures in place and fibrinous exudate and scab present along length, soft surrounding tissue, small fluid collection but not tense, no ttp, no purulence, no erythema or cellulitis unlabored RA soft, non-distended, some mild ttp along left side where pt feels full MAEW visible skin dry and intact Conclusion and Plan - Lab Results Microbiology Results 04/05/19 21:19 Urine,Clean Catch Urine Culture - Final Beta Hemolytic Strep Group B Laboratory Results 04/08/19 07:48: Lactic Acid 0.8 04/08/19 04:15: Sodium 136, Potassium 3.6, Chloride 96 L, Carbon Dioxide 29, Anion Gap 11.0, BUN 7, Creatinine 0.8, Estimated GFR (MDRD) 71 L, Glucose 172 H, Calcium 8.3 L 04/08/19 04:15: WBC 21.7 H, RBC 3.36 L, Hgb 9.1 L, Hct 29.4 L, MCV 87.5, MCH 27.1, MCHC 31.0 L, RDW 14.1, Plt Count 160, MPV 11.1 H, Neut # (Auto) 14.1 H, Lymph # (Auto) 1.5, [place] # (Auto) 1.4 H, Eos # (Auto) 0.1, Baso # (Auto) 0.0, Absolute Nucleated RBC 0.24, Nucleated RBC % 1.1 04/07/19 04:35: Sodium 135, Potassium 3.2 L, Chloride 97 L, Carbon Dioxide 29, Anion Gap 9.0, BUN 9, Creatinine 0.7, Estimated GFR (MDRD) 82 L, Glucose 132 H, Calcium 8.1 L 04/07/19 04:35: WBC 15.8 H, RBC 3.53 L, Hgb 9.5 L, Hct 30.7 L, MCV 87.0, MCH 26.9 L, MCHC 30.9 L, RDW 13.9, Plt Count 160, MPV 11.3 H, Neut # (Auto) Not Reportable, Lymph # (Auto) Not Reportable, [place] # (Auto) Not Reportable, Eos # (Auto) Not Reportable, Baso # (Auto) Not Reportable, Absolute Nucleated RBC Not Reportable, Total Counted 100, Band Neuts % (Manual) 12 H, Abnorm Lymph % (Manual) 0, Metamyelocytes % 7 H, Myelocytes % 2 H, Nucleated RBC % Not Reportable, Neutrophils # (Manual) 12.2 H, Lymphocytes # (Manual) 1.1 L, Monocytes # (Manual) 0.9, Eosinophils # (Manual) 0.2, Basophils # (Manual) 0.0, Differential Comment MANUAL DIFFERENTIAL, Platelet Estimate NORMAL (130- 450,000), RBC Morph Micro Appear NORMAL APPEARANCE - Diagnostic Imaging Results Diagnostic Imaging Results: positive: Final report reviewed, Read independently - Diagnosis Diagnosis: Neutropenic fevers - Plan Plan: - no apparent source from port which is clean and intact; has negative blood cultures so unlikely seeded - left mastectomy inc sutures removed and scab and fibrinous exudate cleared --> no purulence, no cellullitis, no erythema, no ttp --> no signs of infection, unlikely source of fevers --> local wound care to poorly healed tissue now superficially open; wound benefit from wound care team with some chemical debridement in addition to what was done bedside by me
[2019-04-08] MEDS ORDERED: MINERAL OIL ENEMA 133 ML BOTTLE RC ONE (19:00)
[2019-04-08 19:58] LABS: VANCOMYCIN,TROUGH 7.6 ug/mL (10.0-20.0)
[2019-04-08] MEDS: VANCOMYCIN INJ 1 GM, VANCOMYCIN INJ 250 MG in SODIUM CHLORIDE 0.9% 250 ML IV SCH (20:01)
[2019-04-08] MEDS ORDERED: SIMETHICONE 40 MG/0.6 ML 30 ML BOTTLE PO PRN (20:25)
[2019-04-08] MEDS: ALBUTEROL NEB 2.5 MG/3 ML INH PRN (20:25)
[2019-04-09] MEDS: SODIUM CHLORIDE 0.9% 1,000 ML IV SCH ×2 (00:33→03:18)
[2019-04-09] MEDS ORDERED: KETOROLAC 30 MG/ML VIAL IVP PRN (00:46)
[2019-04-09] MEDS: SODIUM CHLORIDE FLUSH 0.9% 10 ML SYRINGE IVP SCH ×3 (01:21→17:34)
[2019-04-09] MEDS ORDERED: BISACODYL 10 MG SUPP PR ONE (05:20)
[2019-04-09 05:26] LABS: BASOPHILS % (AUTO) 0.8 %; EOSINOPHILS % (AUTO) 0.3 %; HGB - HEMOGLOBIN 8.4 g/dL (12.0-16.0); LYMPHOCYTES % (AUTO) 6.3 %; MEAN CORPUSCULAR HEMOGLOBIN 26.1 pg (27.0-31.0); MEAN CORPUSCULAR HGB CONC 30.5 g/dL (32.0-36.0); MEAN CORPUSCULAR VOLUME 85.4 fL (81.0-99.0); MEAN PLATELET VOLUME 11.3 fL (7.9-10.8); MONOCYTES % (AUTO) 7.6 %; NEUTROPHILS % (AUTO) 66.3 %; PLT - PLATELET COUNT 143 10^3/uL (130-450); RED BLOOD COUNT 3.22 10^6/uL (4.20-5.40); RED CELL DISTRIBUTION WIDTH 14.3 % (12.0-15.0); WHITE BLOOD COUNT 24.5 x10^3/uL (4.8-10.8)
[2019-04-09 05:33] LABS: ABNORMAL LYMPHS % (MANUAL) 0 %
[2019-04-09 06:07] LABS: CALCIUM 8.2 mg/dL (8.5-10.3); CREATININE 0.8 mg/dL (0.4-1.0)
[2019-04-09 06:08] LABS: BAND NEUTROPHILS % (MANUAL) 3 %; EOSINOPHILS # (MANUAL) 0.2 10^3/uL (0-0.7); LYMPHOCYTES % (MANUAL) 8 %; METAMYELOCYTES % (MANUAL) 2 %; MONOCYTES # (MANUAL) 1.5 10^3/uL (0.0-1.0); MYELOCYTES % (MANUAL) 4 %
[2019-04-09 06:09] LABS: RBC MORPHOLOGY (MULTIPLE) 1+ POLYCHROMASIA (NORMAL)
[2019-04-09 06:10] LABS: DIFFERENTIAL COMMENT MANUAL DIFFERENTIAL; PLATELET ESTIMATE, MANUAL NORMAL (130-450,000) (NORMAL); PLATELET MORPHOLOGY NORMAL APPEARANCE (NORMAL)
[2019-04-09] MEDS: PANTOPRAZOLE 40 MG TABLET PO SCH (06:46)
[2019-04-09] MEDS ORDERED: VANCOMYCIN INJ 1 GM, VANCOMYCIN INJ 250 MG in SODIUM CHLORIDE 0.9% 250 ML IV SCH (08:00)
[2019-04-09] MEDS ORDERED: VANCOMYCIN INJ 1 GM in SODIUM CHLORIDE 0.9% 250 ML IV SCH (08:00)
[2019-04-09] MEDS: polyethylene glycoL 3350 17 GM PACKET PO PRN (09:23)
[2019-04-09] MEDS: CITALOPRAM 10 MG TABLET PO SCH (09:23)
[2019-04-09] MEDS: FERROUS GLUCONATE 324 MG TABLET PO SCH (09:23)
[2019-04-09] MEDS: SACCHAROMYCES BOULARDII 250 MG CAPSULE PO SCH ×2 (09:23→17:35)
[2019-04-09] MEDS: SENNA 8.6 MG TABLET PO SCH (09:24)
[2019-04-09] MEDS: DOCUSATE SODIUM 250 MG CAPSULE PO SCH (09:24)
[2019-04-09] MEDS: carvediloL 12.5 MG TABLET PO SCH ×2 (09:24→21:32)
[2019-04-09] MEDS: INSULIN ASPART 300 UNIT/3 ML PEN SUBQ SCH ×4 (09:26→21:33)
[2019-04-09] MEDS: INSULIN GLARGINE 300 UNIT/3 ML PEN SUBQ SCH ×2 (09:27→21:33)
--- NOTE | 2019-04-09 10:21 | PROVIDER PROGRESS NOTE ---
Subjective - General Admit Date: 04/06/19 Procedure Date: 03/21/19 Post Op Days: 19 - Review of Systems All Other Systems: positive: Reviewed and negative - Other Other Information/Narrative: Doing well, eating a bit but main complaint is still abdominal discomfort from constipation. Having occasional small formed BMs but not that she feels are sufficient. Fever last evening, not overnight. Objective - Patient Data Vital Signs: Vital Signs x48h Temp Pulse Resp BP Pulse Ox 04/09/19 07:31 36.7 C 73 22 134/53 H 93 04/09/19 05:00 36.9 C 77 18 139/62 H 97 Intake & Output: Intake and Output Totals x24h 04/07/19 04/08/19 04/09/19 23:59 23:59 23:59 Intake Total 1010 1931.25 1452.167 Output Total 700 Balance 310 1931.25 1452.167 - Lab Results Lab Results: 04/09/19 04:50 04/09/19 04:50 Other Lab Results: Lab Results x24hrs 04/09/19 04/09/19 04/08/19 Range/Units 04:50 04:50 19:43 WBC 24.5 H (4.8-10.8) x10^3/uL RBC 3.22 L (4.20-5.40) 10^6/uL Hgb 8.4 L (12.0-16.0) g/dL Hct 27.5 L (37.0-47.0) % MCV 85.4 (81.0-99.0) fL MCH 26.1 L (27.0-31.0) pg MCHC 30.5 L (32.0-36.0) g/dL RDW 14.3 (12.0-15.0) % Plt Count 143 (130-450) 10^3/uL MPV 11.3 H (7.9-10.8) fL Neut # (Auto) Not Reportable Lymph # (Auto) Not Reportable [place] # (Auto) Not Reportable Eos # (Auto) Not Reportable Baso # (Auto) Not Reportable Absolute Nucleated RBC Not Reportable Total Counted 100 Band Neuts % (Manual) 3 (0 - 10) % Abnorm Lymph % (Manual) 0 % Metamyelocytes % 2 H ( - 0) % Myelocytes % 4 H ( - 0) % Nucleated RBC % Not Reportable Neutrophils # (Manual) 19.4 H (1.5-6.6) 10^3/uL Lymphocytes # (Manual) 2.0 (1.5-3.5) 10^3/uL Monocytes # (Manual) 1.5 H (0.0-1.0) 10^3/uL Eosinophils # (Manual) 0.2 (0-0.7) 10^3/uL Basophils # (Manual) 0.0 (0-0.1) 10^3/uL Nucleated RBCs 2 % Differential Comment MANUAL DIFFERENTIAL WBC Morphology NORMAL APPEARANCE (NORMAL) Platelet Estimate NORMAL (130-450,000) (NORMAL) Platelet Morphology NORMAL APPEARANCE (NORMAL) RBC Morph Micro Appear 1+ POLYCHROMASIA (NORMAL) Sodium 139 (135-145) mmol/L Potassium 3.7 (3.5-5.0) mmol/L Chloride 103 (101-111) mmol/L Carbon Dioxide 27 (21-32) mmol/L Anion Gap 9.0 (6-13) BUN 6 (6-20) mg/dL Creatinine 0.8 (0.4-1.0) mg/dL Estimated GFR (MDRD) 71 L (>89) Glucose 186 H (70-100) mg/dL Calcium 8.2 L (8.5-10.3) mg/dL Last Dose Date Last Dose Time 2130 Vancomycin Trough 7.6 L (10.0-20.0) ug/mL - Current Medications Current Medications: Current Medications Generic Name Dose Route Start Last Admin Trade Name Freq PRN Reason Stop Dose Admin Acetaminophen 650 mg 04/05/19 22:54 04/08/19 09:56 Tylenol PO 650 mg Q6HR PRN Administration Pain 1 to 4 Albuterol 2.5 mg 04/05/19 23:58 04/08/19 20:25 INH 2.5 mg RTQ4H PRN Administration Wheezing Carvedilol 12.5 mg 04/06/19 09:00 04/09/19 09:24 Coreg PO 12.5 mg BID JOSE R Administration Citalopram Hydrobromide 40 mg 04/07/19 09:00 04/09/19 09:23 Celexa PO 40 mg DAILY JOSE R Administration Docusate Sodium 250 - 500 mg 04/09/19 09:00 04/09/19 09:24 Colace 250mg Capsule PO 250 mg DAILY JOSE R Administration Ferrous Gluconate 324 mg 04/09/19 10:00 04/09/19 09:23 Fergon PO 324 mg DAILYWM JOSE R Administration Heparin Sodium (Beef Lung) 30 - 50 unit 04/06/19 03:20 04/06/19 11:12 IVP 50 unit PRN PRN Administration Port Protocol (<24 hours) Cefepime HCl 2 gm/ Sodium 100 mls @ 200 mls/hr 04/05/19 23:00 04/08/19 22:30 Chloride IV Infused Q12H JOSE R Infusion Vancomycin HCl 1 gm/ Sodium 250 mls @ 167 mls/hr 04/09/19 08:00 04/09/19 09:24 Chloride IV 167 mls/hr Q12H JOSE R Administration Insulin Aspart 3 - 11 unit 04/07/19 17:30 04/09/19 09:26 Novolog SUBQ 3 unit 0800,1200,1700,2100 JOSE R Administration Protocol Insulin Glargine 45 unit 04/06/19 09:00 04/09/19 09:27 Lantus Solostar SUBQ 45 unit BID JOSE R Administration Ketorolac Tromethamine 30 mg 04/09/19 00:46 04/09/19 01:21 Toradol Inj (30mg) IVP 04/14/19 00:45 30 mg Q6HR PRN Administration PAIN Morphine Sulfate 2 mg 04/06/19 01:28 04/08/19 17:17 Morphine (Carpuject) IVP 2 mg Q3HR PRN Administration PAIN Multi-Ingredient Ointment 1 applic 04/06/19 03:19 04/06/19 06:35 Zinc Oxide TOP 1 applic PRN PRN Administration Skin Care Ondansetron HCl 4 mg 04/06/19 00:00 04/07/19 21:08 Zofran Inj IVP 4 mg Q4HR PRN Administration Nausea / Vomiting Oxycodone HCl 5 mg 04/07/19 08:18 04/08/19 04:43 Roxicodone PO 5 mg Q4HR PRN Administration PAIN Pantoprazole Sodium 40 mg 04/06/19 07:00 04/09/19 06:46 Protonix PO 40 mg QDAC JOSE R Administration Polyethylene Glycol 17 gm 04/06/19 01:30 04/09/19 09:23 Miralax PO 17 gm DAILY PRN Administration Bowel Protocol Saccharomyces Boulardii 250 mg 04/07/19 08:03 04/09/19 09:23 Florastor PO 250 mg BIDWM JOSE R Administration Senna 8.6 - 17.2 mg 04/09/19 09:00 04/09/19 09:24 Senokot PO 8.6 mg DAILY JOSE R Administration Sodium Chloride 10 ml 04/05/19 22:54 04/07/19 21:08 Normal Saline Flush 0.9% IVP 10 ml PRN PRN Administration NEEDED PER PROVIDER ORDERS Sodium Chloride 10 ml 04/06/19 01:00 04/09/19 09:35 Normal Saline Flush 0.9% IVP Not Given 0100,0900,1700 JOSE R Zolpidem Tartrate 5 mg 04/06/19 14:06 04/06/19 22:16 Ambien PO 5 mg QPM PRN Administration Insomnia - Physical Exam Comments/Other: AAO, NAD EOMI, MMM unlabored RA L mastectomy inc open, dressed, no erythema/ cellulitis, no pain, no tense fluid collection MAEW Impression/Plan - Problem List Problem List: Neutropenic fever - no apparent source from port which is clean and intact; has negative blood cultures so unlikely seeded - left mastectomy inc sutures removed and scab and fibrinous exudate cleared --> no purulence, no cellullitis, no erythema, no ttp --> no signs of infection, unlikely source of fevers --> local wound care to poorly healed tissue now superficially open; wound benefit from wound care team with some chemical debridement in addition to what was done bedside by me - likely due to UTI which is a recurrent issue for pt
[2019-04-09] MEDS: CEFEPIME 2 GM in SODIUM CHLORIDE 0.9% MINIBAG 100 ML IV SCH ×2 (12:09→21:32)
--- NOTE | 2019-04-09 14:45 | PROVIDER PROGRESS NOTE ---
Subjective - Prog Note Date Prog Note Date: 04/09/19 Prog Note Time: 14:45 - Subjective Pt reports feeling: Improved Subjective: Yanci had her family visit today and states she cannot wait to get back home. She notes that it has been difficult to stay asleep in the hospital and denies any new symptoms. The patient worries about her upcoming hair loss which is expected as a result of her chemotherapy. She is tearful when speaking of this. She talks about how troubling her urinary incontinence has been as it takes away from her overall quality of life. This symptom has improved since being in the hospital and getting her UTI treated. Current Medications - Current Medications Current Medications: Active Medications: Acetaminophen (Tylenol) 650 mg PO Q6HR PRN Albuterol 2.5 mg INH RTQ4H PRN Carvedilol (Coreg) 12.5 mg PO BID [facility] Citalopram Hydrobromide (Celexa) 40 mg PO DAILY [facility] Docusate Sodium (Colace 250mg Capsule) 250 - 500 mg PO DAILY [facility] Enoxaparin Sodium (Lovenox) 40 mg SUBQ DAILY [facility] Ferrous Gluconate (Fergon 324 mg PO DAILYWM [facility] Heparin Sodium (Beef Lung) 30 - 50 unit IVP PRN PRN Cefepime HCl 2 gm/ Sodium (Chloride) 100 mls @ 200 mls/hr IV Q12H JOSE R Vancomycin HCl 1 gm/ Sodium (Chloride) 250 mls @ 167 mls/hr IV Q12H [facility] Insulin Aspart (Novolog) 3 - 11 unit SUBQ 0800,1200,1700,2100 JOSE R; Protocol Insulin Glargine (Lantus Solostar) 45 unit SUBQ BID [facility] Ketorolac Tromethamine (Toradol Inj (30mg) 30 mg IVP Q6HR PRN Morphine Sulfate (Morphine (Carpuject) 2 mg IVP Q3HR PRN Multi-Ingredient Ointment (Zinc Oxide) 1 applic TOP PRN PRN Ondansetron HCl (Zofran Inj) 4 mg IVP Q4HR PRN Oxycodone HCl (Roxicodone) 5 mg PO Q4HR PRN Pantoprazole Sodium (Protonix) 40 mg PO QDAC [facility] Polyethylene Glycol (Miralax) 17 gm PO DAILY PRN Saccharomyces Boulardii (Florastor) 250 mg PO BIDWM [facility] Senna (Senokot) 8.6 - 17.2 mg PO DAILY [facility] Simethicone (Mylicon) 80 mg PO Q6H PRN HOME meds: Insulin Glargine [Lantus Solostar] 45 units SQ BID 11/17/15 Lisinopril 10 mg PO DAILY 11/17/15 Simvastatin [Zocor] 20 mg PO QPM 11/17/15 carvediloL [Coreg] 12.5 mg PO BID 11/17/15 metFORMIN [Glucophage] 1,000 mg PO BIDWM 11/17/15 Citalopram [CeleXA] 40 mg PO DAILY 12/09/16 Tolterodine [Detrol LA] 2 mg PO BID 12/09/16 Albuterol Sulfate [Proair Hfa Inhaler] 1 - 2 puffs INH Q4H PRN 01/12/19 Furosemide 20 - 40 mg PO DAILY 01/12/19 Ondansetron [Ondansetron Odt] 8 mg PO BID PRN 03/22/19 Lidocaine/Prilocain 2.5% Cream [Emla 2.5% Cream] 1 applic TOP Q8HR PRN 04/06/19 Objective - Vital Signs/Intake & Output Reviewed Vital Signs: Yes Vital Signs: Vital Signs x48h Temp Pulse Resp BP Pulse Ox 04/09/19 07:31 36.7 C 73 22 134/53 H 93 Intake & Output: Intake & Output 04/06/19 04/07/19 04/08/19 04/09/19 23:59 23:59 23:59 23:59 Intake Total 2520 1010 1931.25 3337.167 Output Total 1150 700 Balance 7557 769 7678.25 3337.167 - Objective General Appearance: positive: Alert, Anxious Eyes Bilateral: positive: PERRL, No lid inflammation Eyes: OU Conjunctivae pale ENT: positive: Pharyngeal erythema, Dry mucous membranes Neck: positive: No JVD, Trachea midline Respiratory: positive: Chest non-tender, No respiratory distress Cardiovascular: positive: Regular rate & rhythm, No gallop, Systolic murmur, Decreased pulse(s) Peripheral Pulses: 1+ Radial (R), 1+ Radial (L) Abdomen: positive: Non-tender, Nml bowel sounds, Other (rounded, soft) Back: positive: Nml inspection Skin: positive: No rash, Warm, Dry, Pallor (pale), Other (left breast wound, healing no new s/s of infection) Extremities: positive: Non-tender, Pedal edema (dependent) Neurologic/Psychiatric: positive: Oriented x3, CN's nml (2-12), Motor nml, Sensation nml, Weakness, Depressed mood/affect (flat), Other (tearful at times) Reflexes: Bicep (R): 3+, Bicep (L): 3+ - Lab Results Fish Bones: 04/09/19 04:50 04/09/19 04:50 Other Labs: Lab Results x24hrs 04/09/19 04/09/19 04/09/19 Range/Units 11:19 07:28 04:50 WBC (4.8-10.8) x10^3/uL RBC (4.20-5.40) 10^6/uL Hgb (12.0-16.0) g/dL Hct (37.0-47.0) % MCV (81.0-99.0) fL MCH (27.0-31.0) pg MCHC (32.0-36.0) g/dL RDW (12.0-15.0) % Plt Count (130-450) 10^3/uL MPV (7.9-10.8) fL Neut # (Auto) Lymph # (Auto) [place] # (Auto) Eos # (Auto) Baso # (Auto) Absolute Nucleated RBC Total Counted Band Neuts % (Manual) (0 - 10) % Abnorm Lymph % (Manual) % Metamyelocytes % ( - 0) % Myelocytes % ( - 0) % Nucleated RBC % Neutrophils # (Manual) (1.5-6.6) 10^3/uL Lymphocytes # (Manual) (1.5-3.5) 10^3/uL Monocytes # (Manual) (0.0-1.0) 10^3/uL Eosinophils # (Manual) (0-0.7) 10^3/uL Basophils # (Manual) (0-0.1) 10^3/uL Nucleated RBCs % Differential Comment WBC Morphology (NORMAL) Platelet Estimate (NORMAL) Platelet Morphology (NORMAL) RBC Morph Micro Appear (NORMAL) Sodium 139 (135-145) mmol/L Potassium 3.7 (3.5-5.0) mmol/L Chloride 103 (101-111) mmol/L Carbon Dioxide 27 (21-32) mmol/L Anion Gap 9.0 (6-13) BUN 6 (6-20) mg/dL Creatinine 0.8 (0.4-1.0) mg/dL Estimated GFR (MDRD) 71 L (>89) Glucose 186 H (70-100) mg/dL POC Whole Bld Glucose 273 H 159 H (70 - 100) mg/dL Calcium 8.2 L (8.5-10.3) mg/dL Last Dose Date Last Dose Time Vancomycin Trough (10.0-20.0) ug/mL 04/09/19 04/08/19 04/08/19 Range/Units 04:50 20:14 19:43 WBC 24.5 H (4.8-10.8) x10^3/uL RBC 3.22 L (4.20-5.40) 10^6/uL Hgb 8.4 L (12.0-16.0) g/dL Hct 27.5 L (37.0-47.0) % MCV 85.4 (81.0-99.0) fL MCH 26.1 L (27.0-31.0) pg MCHC 30.5 L (32.0-36.0) g/dL RDW 14.3 (12.0-15.0) % Plt Count 143 (130-450) 10^3/uL MPV 11.3 H (7.9-10.8) fL Neut # (Auto) Not Reportable Lymph # (Auto) Not Reportable [place] # (Auto) Not Reportable Eos # (Auto) Not Reportable Baso # (Auto) Not Reportable Absolute Nucleated RBC Not Reportable Total Counted 100 Band Neuts % (Manual) 3 (0 - 10) % Abnorm Lymph % (Manual) 0 % Metamyelocytes % 2 H ( - 0) % Myelocytes % 4 H ( - 0) % Nucleated RBC % Not Reportable Neutrophils # (Manual) 19.4 H (1.5-6.6) 10^3/uL Lymphocytes # (Manual) 2.0 (1.5-3.5) 10^3/uL Monocytes # (Manual) 1.5 H (0.0-1.0) 10^3/uL Eosinophils # (Manual) 0.2 (0-0.7) 10^3/uL Basophils # (Manual) 0.0 (0-0.1) 10^3/uL Nucleated RBCs 2 % Differential Comment MANUAL DIFFERENTIAL WBC Morphology NORMAL APPEARANCE (NORMAL) Platelet Estimate NORMAL (130-450,000) (NORMAL) Platelet Morphology NORMAL APPEARANCE (NORMAL) RBC Morph Micro Appear 1+ POLYCHROMASIA (NORMAL) Sodium (135-145) mmol/L Potassium (3.5-5.0) mmol/L Chloride (101-111) mmol/L Carbon Dioxide (21-32) mmol/L Anion Gap (6-13) BUN (6-20) mg/dL Creatinine (0.4-1.0) mg/dL Estimated GFR (MDRD) (>89) Glucose (70-100) mg/dL POC Whole Bld Glucose 198 H (70 - 100) mg/dL Calcium (8.5-10.3) mg/dL Last Dose Date Last Dose Time 2130 Vancomycin Trough 7.6 L (10.0-20.0) ug/mL 04/08/19 04/08/19 04/08/19 Range/Units 16:15 11:20 08:36 WBC (4.8-10.8) x10^3/uL RBC (4.20-5.40) 10^6/uL Hgb (12.0-16.0) g/dL Hct (37.0-47.0) % MCV (81.0-99.0) fL MCH (27.0-31.0) pg MCHC (32.0-36.0) g/dL RDW (12.0-15.0) % Plt Count (130-450) 10^3/uL MPV (7.9-10.8) fL Neut # (Auto) Lymph # (Auto) [place] # (Auto) Eos # (Auto) Baso # (Auto) Absolute Nucleated RBC Total Counted Band Neuts % (Manual) (0 - 10) % Abnorm Lymph % (Manual) % Metamyelocytes % ( - 0) % Myelocytes % ( - 0) % Nucleated RBC % Neutrophils # (Manual) (1.5-6.6) 10^3/uL Lymphocytes # (Manual) (1.5-3.5) 10^3/uL Monocytes # (Manual) (0.0-1.0) 10^3/uL Eosinophils # (Manual) (0-0.7) 10^3/uL Basophils # (Manual) (0-0.1) 10^3/uL Nucleated RBCs % Differential Comment WBC Morphology (NORMAL) Platelet Estimate (NORMAL) Platelet Morphology (NORMAL) RBC Morph Micro Appear (NORMAL) Sodium (135-145) mmol/L Potassium (3.5-5.0) mmol/L Chloride (101-111) mmol/L Carbon Dioxide (21-32) mmol/L Anion Gap (6-13) BUN (6-20) mg/dL Creatinine (0.4-1.0) mg/dL Estimated GFR (MDRD) (>89) Glucose (70-100) mg/dL POC Whole Bld Glucose 291 H 323 H 167 H (70 - 100) mg/dL Calcium (8.5-10.3) mg/dL Last Dose Date Last Dose Time Vancomycin Trough (10.0-20.0) ug/mL 04/07/19 04/07/19 04/07/19 Range/Units 20:22 16:34 11:24 WBC (4.8-10.8) x10^3/uL RBC (4.20-5.40) 10^6/uL Hgb (12.0-16.0) g/dL Hct (37.0-47.0) % MCV (81.0-99.0) fL MCH (27.0-31.0) pg MCHC (32.0-36.0) g/dL RDW (12.0-15.0) % Plt Count (130-450) 10^3/uL MPV (7.9-10.8) fL Neut # (Auto) Lymph # (Auto) [place] # (Auto) Eos # (Auto) Baso # (Auto) Absolute Nucleated RBC Total Counted Band Neuts % (Manual) (0 - 10) % Abnorm Lymph % (Manual) % Metamyelocytes % ( - 0) % Myelocytes % ( - 0) % Nucleated RBC % Neutrophils # (Manual) (1.5-6.6) 10^3/uL Lymphocytes # (Manual) (1.5-3.5) 10^3/uL Monocytes # (Manual) (0.0-1.0) 10^3/uL Eosinophils # (Manual) (0-0.7) 10^3/uL Basophils # (Manual) (0-0.1) 10^3/uL Nucleated RBCs % Differential Comment WBC Morphology (NORMAL) Platelet Estimate (NORMAL) Platelet Morphology (NORMAL) RBC Morph Micro Appear (NORMAL) Sodium (135-145) mmol/L Potassium (3.5-5.0) mmol/L Chloride (101-111) mmol/L Carbon Dioxide (21-32) mmol/L Anion Gap (6-13) BUN (6-20) mg/dL Creatinine (0.4-1.0) mg/dL Estimated GFR (MDRD) (>89) Glucose (70-100) mg/dL POC Whole Bld Glucose 164 H 261 H 243 H (70 - 100) mg/dL Calcium (8.5-10.3) mg/dL Last Dose Date Last Dose Time Vancomycin Trough (10.0-20.0) ug/mL 04/07/19 04/06/19 04/06/19 Range/Units 07:24 20:24 16:31 WBC (4.8-10.8) x10^3/uL RBC (4.20-5.40) 10^6/uL Hgb (12.0-16.0) g/dL Hct (37.0-47.0) % MCV (81.0-99.0) fL MCH (27.0-31.0) pg MCHC (32.0-36.0) g/dL RDW (12.0-15.0) % Plt Count (130-450) 10^3/uL MPV (7.9-10.8) fL Neut # (Auto) Lymph # (Auto) [place] # (Auto) Eos # (Auto) Baso # (Auto) Absolute Nucleated RBC Total Counted Band Neuts % (Manual) (0 - 10) % Abnorm Lymph % (Manual) % Metamyelocytes % ( - 0) % Myelocytes % ( - 0) % Nucleated RBC % Neutrophils # (Manual) (1.5-6.6) 10^3/uL Lymphocytes # (Manual) (1.5-3.5) 10^3/uL Monocytes # (Manual) (0.0-1.0) 10^3/uL Eosinophils # (Manual) (0-0.7) 10^3/uL Basophils # (Manual) (0-0.1) 10^3/uL Nucleated RBCs % Differential Comment WBC Morphology (NORMAL) Platelet Estimate (NORMAL) Platelet Morphology (NORMAL) RBC Morph Micro Appear (NORMAL) Sodium (135-145) mmol/L Potassium (3.5-5.0) mmol/L Chloride (101-111) mmol/L Carbon Dioxide (21-32) mmol/L Anion Gap (6-13) BUN (6-20) mg/dL Creatinine (0.4-1.0) mg/dL Estimated GFR (MDRD) (>89) Glucose (70-100) mg/dL POC Whole Bld Glucose 143 H 231 H 246 H (70 - 100) mg/dL Calcium (8.5-10.3) mg/dL Last Dose Date Last Dose Time Vancomycin Trough (10.0-20.0) ug/mL 04/06/19 Range/Units 11:16 WBC (4.8-10.8) x10^3/uL RBC (4.20-5.40) 10^6/uL Hgb (12.0-16.0) g/dL Hct (37.0-47.0) % MCV (81.0-99.0) fL MCH (27.0-31.0) pg MCHC (32.0-36.0) g/dL RDW (12.0-15.0) % Plt Count (130-450) 10^3/uL MPV (7.9-10.8) fL Neut # (Auto) Lymph # (Auto) [place] # (Auto) Eos # (Auto) Baso # (Auto) Absolute Nucleated RBC Total Counted Band Neuts % (Manual) (0 - 10) % Abnorm Lymph % (Manual) % Metamyelocytes % ( - 0) % Myelocytes % ( - 0) % Nucleated RBC % Neutrophils # (Manual) (1.5-6.6) 10^3/uL Lymphocytes # (Manual) (1.5-3.5) 10^3/uL Monocytes # (Manual) (0.0-1.0) 10^3/uL Eosinophils # (Manual) (0-0.7) 10^3/uL Basophils # (Manual) (0-0.1) 10^3/uL Nucleated RBCs % Differential Comment WBC Morphology (NORMAL) Platelet Estimate (NORMAL) Platelet Morphology (NORMAL) RBC Morph Micro Appear (NORMAL) Sodium (135-145) mmol/L Potassium (3.5-5.0) mmol/L Chloride (101-111) mmol/L Carbon Dioxide (21-32) mmol/L Anion Gap (6-13) BUN (6-20) mg/dL Creatinine (0.4-1.0) mg/dL Estimated GFR (MDRD) (>89) Glucose (70-100) mg/dL POC Whole Bld Glucose 271 H (70 - 100) mg/dL Calcium (8.5-10.3) mg/dL Last Dose Date Last Dose Time Vancomycin Trough (10.0-20.0) ug/mL ABX Reporting Has patient been on IV antibiotics over the past 48 hours?: Yes Sepsis Event Note (H) - Evaluation Current Stage of Sepsis: Ruled out Assessment/Plan - Problem List (1) Neutropenic fever Impression: -last recorded febrile event was at 2350 on 04/08 -Temp max was 39.5 C on 04/05/2019 -WBC count elevated at 24.5 today -Was given Neulasta x1 -Continues on IV cefepime & vanco -Await final cultures, negative blood cultures Abscess after procedure -Chest CT showed a small size 2.3x3.4x2.6 cm fluid collection at the left mastectomy site, cellulitis or inflammatory changes to the left mastectomy site -General surgery, Dr. Craig is following, abscess is not drainable -Wound culture from left chest drainage is growing staph aureus -Continues on vanco & cefepime IV -Continue to watch for improvement Breast cancer -Past history of right breast cancer in 1995, s/p right radical mastectomy -Recent left mastectomy fall -Primary oncologist is Samir Barrett, seen on outpatient MAC last on 04/05/2019 -Stage I left breast cancer, triple negative -Multiple concerning side effects including; abdominal pain, nausea, cons tipation, glo-rectal lesions and myalgias occurring ~1 week following initiation of Cytoxan and Taxotere -Next chemotherapy next due in 2 weeks, may need to be decreased -Status post Left chest mastectomy -Surgically removed in the fall -Chest CT from 04/08/2019 shows a left small fluid collection area at the left mastectomy site, thickening of the skin, which could be due to cellulitis -Visual drainage noted, collected, and a wound culture is pending -Preliminary would culture show staph aureus -Continues on IV antibiotics Beta hemolytic strep B UTI -Final urine culture shows beta hemolytic group B -Sensitivities not indicated, treated with penicillin, cephalosporins, levofloxacin or vancomycin -Continues on Cefepime and Vanco IV via port Urinary incontinence -Patient complains that for the past 1 year, she has had frequency, urgency and incontinence -She denies burning, or hematuria -Was taking Detrol outpatient, now on hold -She is ok with trying oxybutynin as an alternative since the Detrol was not working anymore -Continue to monitor, anticipate starting medication prior to discharge Acute on chronic combined systolic and diastolic CHF (congestive heart failure)ACC/AHA stage C w/ reduced EF -Contributing factor of chemotherapy agent used, (anthracycline) -Mild to moderately impaired EF of 40-45% -Grade I diastolic dysfunction -Continues on carvedilol -Holding home lisinipril and lasix -Stopped telemetry since stable -Routine labs, monitor for fluid imbalance, or overload -Resume meds when more stable Cardiomyopathy -Mild to moderately impaired EF of 40-45% -Global hypokinesis of LV contractility, more pronounced in the basal and mid- inferior wall segments -Grade I diastolic dysfunction Hypertension -Continues carvedilol, holding lisinopril and lasix Insulin dependent diabetes mellitus type II -Hemoglobin A1C is 8.2% on 04/06/2019 -Home dose of Lantus is 45 units bid, continued here -No hypoglycemia noted -Blood sugars on the past 24 hours have been 159-323 -Continues on SSI, Accu checks -Holding metformin as per hospital protocol Asthma -No new cough, stable, continues on Albuterol prn Anxiety -Acute on chronic; stable -Patient with baseline daily worry due to ongoing breast cancer -Continues on Celexa daily, no adjustments at this time -Can have ativan PRN -Monitor for insomnia
[2019-04-09] MEDS ORDERED: FLUCONAZOLE 200 MG/100 ML 100 ML IV SCH (19:00)
[2019-04-09] MEDS: LACTULOSE 10 GM /15 ML UDC PO SCH (19:17)
[2019-04-09] MEDS: oxyCODONE 5 MG TABLET PO PRN (22:18)
[2019-04-10] MEDS: SODIUM CHLORIDE FLUSH 0.9% 10 ML SYRINGE IVP SCH ×2 (00:59→10:03)
[2019-04-10] MEDS: SODIUM CHLORIDE FLUSH 0.9% 10 ML SYRINGE IVP PRN ×2 (00:59→05:37)
[2019-04-10] MEDS: SIMETHICONE CHEW 80 MG TABLET PO PRN ×2 (01:09→08:41)
[2019-04-10 05:36] LABS: BASOPHILS % (AUTO) 0.1 %; EOSINOPHILS % (AUTO) 0.3 %; HGB - HEMOGLOBIN 9.4 g/dL (12.0-16.0); LYMPHOCYTES % (AUTO) 9.4 %; MEAN CORPUSCULAR HEMOGLOBIN 27.1 pg (27.0-31.0); MEAN CORPUSCULAR HGB CONC 30.8 g/dL (32.0-36.0); MEAN CORPUSCULAR VOLUME 87.9 fL (81.0-99.0); MEAN PLATELET VOLUME 11.1 fL (7.9-10.8); MONOCYTES % (AUTO) 5.3 %; NEUTROPHILS % (AUTO) 66.8 %; PLT - PLATELET COUNT 143 10^3/uL (130-450); RED BLOOD COUNT 3.47 10^6/uL (4.20-5.40); RED CELL DISTRIBUTION WIDTH 14.7 % (12.0-15.0); WHITE BLOOD COUNT 23.1 x10^3/uL (4.8-10.8)
[2019-04-10 05:43] LABS: CALCIUM 8.6 mg/dL (8.5-10.3); CREATININE 0.7 mg/dL (0.4-1.0); MAGNESIUM 1.8 mg/dL (1.7-2.8)
[2019-04-10 05:54] LABS: ABNORMAL LYMPHS % (MANUAL) 0 %
[2019-04-10 06:00] LABS: BAND NEUTROPHILS % (MANUAL) 1 %; LYMPHOCYTES # (MANUAL) 2.5 10^3/uL (1.5-3.5); LYMPHOCYTES % (MANUAL) 11 %; METAMYELOCYTES % (MANUAL) 3 %; MONOCYTES # (MANUAL) 0.9 10^3/uL (0.0-1.0); MYELOCYTES % (MANUAL) 4 %
[2019-04-10 06:15] LABS: PLATELET MORPHOLOGY 1+ LARGE PLATELETS (NORMAL); RBC MORPHOLOGY (MULTIPLE) 1+ POLYCHROMASIA (NORMAL)
[2019-04-10 06:16] LABS: DIFFERENTIAL COMMENT MANUAL DIFFERENTIAL; PLATELET ESTIMATE, MANUAL NORMAL (130-450,000) (NORMAL)
[2019-04-10] MEDS: PANTOPRAZOLE 40 MG TABLET PO SCH (06:39)
[2019-04-10 07:52] VITALS: BP 122/48
[2019-04-10] MEDS: INSULIN GLARGINE 300 UNIT/3 ML PEN SUBQ SCH (08:37)
[2019-04-10] MEDS: CITALOPRAM 10 MG TABLET PO SCH (08:41)
[2019-04-10] MEDS: SENNA 8.6 MG TABLET PO SCH (08:41)
[2019-04-10] MEDS: carvediloL 12.5 MG TABLET PO SCH (08:41)
[2019-04-10] MEDS: DOCUSATE SODIUM 250 MG CAPSULE PO SCH (08:41)
[2019-04-10] MEDS: SACCHAROMYCES BOULARDII 250 MG CAPSULE PO SCH (08:41)
[2019-04-10] MEDS: FERROUS GLUCONATE 324 MG TABLET PO SCH (08:41)
[2019-04-10] MEDS: INSULIN ASPART 300 UNIT/3 ML PEN SUBQ SCH ×2 (08:42→11:50)
[2019-04-10] MEDS: LACTULOSE 10 GM /15 ML UDC PO SCH (08:42)
[2019-04-10] MEDS ORDERED: ENOXAPARIN 40 MG/0.4 ML SYRINGE SUBQ SCH (09:00)
[2019-04-10] MEDS: CEFEPIME 2 GM in SODIUM CHLORIDE 0.9% MINIBAG 100 ML IV SCH (10:03)
--- NOTE | 2019-04-10 10:46 | PROVIDER PROGRESS NOTE ---
Subjective - General Admit Date: 04/06/19 Procedure Date: 03/21/19 Post Op Days: 20 - Review of Systems All Other Systems: positive: Reviewed and negative - Other Other Information/Narrative: Feels better, bowels moving, mariana diet better. No fevers >24 hrs. Did not sleep well in hospital and hopes to go home soon. Objective - Patient Data Vital Signs: Vital Signs x48h Temp Pulse Resp BP Pulse Ox 04/10/19 07:51 37.0 C 71 18 122/48 L 91 L Intake & Output: Intake and Output Totals x24h 04/08/19 04/09/19 04/10/19 23:59 23:59 23:59 Intake Total 1931.25 3937.167 260 Balance 1931.25 3937.167 260 - Lab Results Lab Results: 04/10/19 05:20 04/10/19 05:20 Other Lab Results: Lab Results x24hrs 04/10/19 04/10/19 04/10/19 Range/Units 07:36 05:20 05:20 WBC (4.8-10.8) x10^3/uL RBC (4.20-5.40) 10^6/uL Hgb (12.0-16.0) g/dL Hct (37.0-47.0) % MCV (81.0-99.0) fL MCH (27.0-31.0) pg MCHC (32.0-36.0) g/dL RDW (12.0-15.0) % Plt Count (130-450) 10^3/uL MPV (7.9-10.8) fL Neut # (Auto) Lymph # (Auto) [place] # (Auto) Eos # (Auto) Baso # (Auto) Absolute Nucleated RBC Total Counted Band Neuts % (Manual) (0 - 10) % Abnorm Lymph % (Manual) % Metamyelocytes % ( - 0) % Myelocytes % ( - 0) % Nucleated RBC % Neutrophils # (Manual) (1.5-6.6) 10^3/uL Lymphocytes # (Manual) (1.5-3.5) 10^3/uL Monocytes # (Manual) (0.0-1.0) 10^3/uL Eosinophils # (Manual) (0-0.7) 10^3/uL Basophils # (Manual) (0-0.1) 10^3/uL Differential Comment WBC Morphology (NORMAL) Platelet Estimate (NORMAL) Platelet Morphology (NORMAL) RBC Morph Micro Appear (NORMAL) Sodium 138 (135-145) mmol/L Potassium 3.6 (3.5-5.0) mmol/L Chloride 103 (101-111) mmol/L Carbon Dioxide 27 (21-32) mmol/L Anion Gap 8.0 (6-13) BUN 6 (6-20) mg/dL Creatinine 0.7 (0.4-1.0) mg/dL Estimated GFR (MDRD) 82 L (>89) Glucose 73 (70-100) mg/dL POC Whole Bld Glucose 76 (70 - 100) mg/dL Lactic Acid 1.3 (0.5-2.2) mmol/L Calcium 8.6 (8.5-10.3) mg/dL Magnesium 1.8 (1.7-2.8) mg/dL 04/10/19 04/09/19 04/09/19 Range/Units 05:20 20:37 16:34 WBC 23.1 H (4.8-10.8) x10^3/uL RBC 3.47 L (4.20-5.40) 10^6/uL Hgb 9.4 L (12.0-16.0) g/dL Hct 30.5 L (37.0-47.0) % MCV 87.9 (81.0-99.0) fL MCH 27.1 (27.0-31.0) pg MCHC 30.8 L (32.0-36.0) g/dL RDW 14.7 (12.0-15.0) % Plt Count 143 (130-450) 10^3/uL MPV 11.1 H (7.9-10.8) fL Neut # (Auto) Not Reportable Lymph # (Auto) Not Reportable [place] # (Auto) Not Reportable Eos # (Auto) Not Reportable Baso # (Auto) Not Reportable Absolute Nucleated RBC Not Reportable Total Counted 100 Band Neuts % (Manual) 1 (0 - 10) % Abnorm Lymph % (Manual) 0 % Metamyelocytes % 3 H ( - 0) % Myelocytes % 4 H ( - 0) % Nucleated RBC % Not Reportable Neutrophils # (Manual) 18.0 H (1.5-6.6) 10^3/uL Lymphocytes # (Manual) 2.5 (1.5-3.5) 10^3/uL Monocytes # (Manual) 0.9 (0.0-1.0) 10^3/uL Eosinophils # (Manual) 0.0 (0-0.7) 10^3/uL Basophils # (Manual) 0.0 (0-0.1) 10^3/uL Differential Comment MANUAL DIFFERENTIAL WBC Morphology NORMAL APPEARANCE (NORMAL) Platelet Estimate NORMAL (130-450,000) (NORMAL) Platelet Morphology 1+ LARGE PLATELETS (NORMAL) RBC Morph Micro Appear 1+ POLYCHROMASIA (NORMAL) Sodium (135-145) mmol/L Potassium (3.5-5.0) mmol/L Chloride (101-111) mmol/L Carbon Dioxide (21-32) mmol/L Anion Gap (6-13) BUN (6-20) mg/dL Creatinine (0.4-1.0) mg/dL Estimated GFR (MDRD) (>89) Glucose (70-100) mg/dL POC Whole Bld Glucose 151 H 241 H (70 - 100) mg/dL Lactic Acid (0.5-2.2) mmol/L Calcium (8.5-10.3) mg/dL Magnesium (1.7-2.8) mg/dL 04/09/19 04/09/19 04/08/19 Range/Units 11:19 07:28 20:14 WBC (4.8-10.8) x10^3/uL RBC (4.20-5.40) 10^6/uL Hgb (12.0-16.0) g/dL Hct (37.0-47.0) % MCV (81.0-99.0) fL MCH (27.0-31.0) pg MCHC (32.0-36.0) g/dL RDW (12.0-15.0) % Plt Count (130-450) 10^3/uL MPV (7.9-10.8) fL Neut # (Auto) Lymph # (Auto) [place] # (Auto) Eos # (Auto) Baso # (Auto) Absolute Nucleated RBC Total Counted Band Neuts % (Manual) (0 - 10) % Abnorm Lymph % (Manual) % Metamyelocytes % ( - 0) % Myelocytes % ( - 0) % Nucleated RBC % Neutrophils # (Manual) (1.5-6.6) 10^3/uL Lymphocytes # (Manual) (1.5-3.5) 10^3/uL Monocytes # (Manual) (0.0-1.0) 10^3/uL Eosinophils # (Manual) (0-0.7) 10^3/uL Basophils # (Manual) (0-0.1) 10^3/uL Differential Comment WBC Morphology (NORMAL) Platelet Estimate (NORMAL) Platelet Morphology (NORMAL) RBC Morph Micro Appear (NORMAL) Sodium (135-145) mmol/L Potassium (3.5-5.0) mmol/L Chloride (101-111) mmol/L Carbon Dioxide (21-32) mmol/L Anion Gap (6-13) BUN (6-20) mg/dL Creatinine (0.4-1.0) mg/dL Estimated GFR (MDRD) (>89) Glucose (70-100) mg/dL POC Whole Bld Glucose 273 H 159 H 198 H (70 - 100) mg/dL Lactic Acid (0.5-2.2) mmol/L Calcium (8.5-10.3) mg/dL Magnesium (1.7-2.8) mg/dL 04/08/19 04/08/19 04/08/19 Range/Units 16:15 11:20 08:36 WBC (4.8-10.8) x10^3/uL RBC (4.20-5.40) 10^6/uL Hgb (12.0-16.0) g/dL Hct (37.0-47.0) % MCV (81.0-99.0) fL MCH (27.0-31.0) pg MCHC (32.0-36.0) g/dL RDW (12.0-15.0) % Plt Count (130-450) 10^3/uL MPV (7.9-10.8) fL Neut # (Auto) Lymph # (Auto) [place] # (Auto) Eos # (Auto) Baso # (Auto) Absolute Nucleated RBC Total Counted Band Neuts % (Manual) (0 - 10) % Abnorm Lymph % (Manual) % Metamyelocytes % ( - 0) % Myelocytes % ( - 0) % Nucleated RBC % Neutrophils # (Manual) (1.5-6.6) 10^3/uL Lymphocytes # (Manual) (1.5-3.5) 10^3/uL Monocytes # (Manual) (0.0-1.0) 10^3/uL Eosinophils # (Manual) (0-0.7) 10^3/uL Basophils # (Manual) (0-0.1) 10^3/uL Differential Comment WBC Morphology (NORMAL) Platelet Estimate (NORMAL) Platelet Morphology (NORMAL) RBC Morph Micro Appear (NORMAL) Sodium (135-145) mmol/L Potassium (3.5-5.0) mmol/L Chloride (101-111) mmol/L Carbon Dioxide (21-32) mmol/L Anion Gap (6-13) BUN (6-20) mg/dL Creatinine (0.4-1.0) mg/dL Estimated GFR (MDRD) (>89) Glucose (70-100) mg/dL POC Whole Bld Glucose 291 H 323 H 167 H (70 - 100) mg/dL Lactic Acid (0.5-2.2) mmol/L Calcium (8.5-10.3) mg/dL Magnesium (1.7-2.8) mg/dL 04/07/19 04/07/19 04/07/19 Range/Units 20:22 16:34 11:24 WBC (4.8-10.8) x10^3/uL RBC (4.20-5.40) 10^6/uL Hgb (12.0-16.0) g/dL Hct (37.0-47.0) % MCV (81.0-99.0) fL MCH (27.0-31.0) pg MCHC (32.0-36.0) g/dL RDW (12.0-15.0) % Plt Count (130-450) 10^3/uL MPV (7.9-10.8) fL Neut # (Auto) Lymph # (Auto) [place] # (Auto) Eos # (Auto) Baso # (Auto) Absolute Nucleated RBC Total Counted Band Neuts % (Manual) (0 - 10) % Abnorm Lymph % (Manual) % Metamyelocytes % ( - 0) % Myelocytes % ( - 0) % Nucleated RBC % Neutrophils # (Manual) (1.5-6.6) 10^3/uL Lymphocytes # (Manual) (1.5-3.5) 10^3/uL Monocytes # (Manual) (0.0-1.0) 10^3/uL Eosinophils # (Manual) (0-0.7) 10^3/uL Basophils # (Manual) (0-0.1) 10^3/uL Differential Comment WBC Morphology (NORMAL) Platelet Estimate (NORMAL) Platelet Morphology (NORMAL) RBC Morph Micro Appear (NORMAL) Sodium (135-145) mmol/L Potassium (3.5-5.0) mmol/L Chloride (101-111) mmol/L Carbon Dioxide (21-32) mmol/L Anion Gap (6-13) BUN (6-20) mg/dL Creatinine (0.4-1.0) mg/dL Estimated GFR (MDRD) (>89) Glucose (70-100) mg/dL POC Whole Bld Glucose 164 H 261 H 243 H (70 - 100) mg/dL Lactic Acid (0.5-2.2) mmol/L Calcium (8.5-10.3) mg/dL Magnesium (1.7-2.8) mg/dL 04/07/19 04/06/19 04/06/19 Range/Units 07:24 20:24 16:31 WBC (4.8-10.8) x10^3/uL RBC (4.20-5.40) 10^6/uL Hgb (12.0-16.0) g/dL Hct (37.0-47.0) % MCV (81.0-99.0) fL MCH (27.0-31.0) pg MCHC (32.0-36.0) g/dL RDW (12.0-15.0) % Plt Count (130-450) 10^3/uL MPV (7.9-10.8) fL Neut # (Auto) Lymph # (Auto) [place] # (Auto) Eos # (Auto) Baso # (Auto) Absolute Nucleated RBC Total Counted Band Neuts % (Manual) (0 - 10) % Abnorm Lymph % (Manual) % Metamyelocytes % ( - 0) % Myelocytes % ( - 0) % Nucleated RBC % Neutrophils # (Manual) (1.5-6.6) 10^3/uL Lymphocytes # (Manual) (1.5-3.5) 10^3/uL Monocytes # (Manual) (0.0-1.0) 10^3/uL Eosinophils # (Manual) (0-0.7) 10^3/uL Basophils # (Manual) (0-0.1) 10^3/uL Differential Comment WBC Morphology (NORMAL) Platelet Estimate (NORMAL) Platelet Morphology (NORMAL) RBC Morph Micro Appear (NORMAL) Sodium (135-145) mmol/L Potassium (3.5-5.0) mmol/L Chloride (101-111) mmol/L Carbon Dioxide (21-32) mmol/L Anion Gap (6-13) BUN (6-20) mg/dL Creatinine (0.4-1.0) mg/dL Estimated GFR (MDRD) (>89) Glucose (70-100) mg/dL POC Whole Bld Glucose 143 H 231 H 246 H (70 - 100) mg/dL Lactic Acid (0.5-2.2) mmol/L Calcium (8.5-10.3) mg/dL Magnesium (1.7-2.8) mg/dL 04/06/19 Range/Units 11:16 WBC (4.8-10.8) x10^3/uL RBC (4.20-5.40) 10^6/uL Hgb (12.0-16.0) g/dL Hct (37.0-47.0) % MCV (81.0-99.0) fL MCH (27.0-31.0) pg MCHC (32.0-36.0) g/dL RDW (12.0-15.0) % Plt Count (130-450) 10^3/uL MPV (7.9-10.8) fL Neut # (Auto) Lymph # (Auto) [place] # (Auto) Eos # (Auto) Baso # (Auto) Absolute Nucleated RBC Total Counted Band Neuts % (Manual) (0 - 10) % Abnorm Lymph % (Manual) % Metamyelocytes % ( - 0) % Myelocytes % ( - 0) % Nucleated RBC % Neutrophils # (Manual) (1.5-6.6) 10^3/uL Lymphocytes # (Manual) (1.5-3.5) 10^3/uL Monocytes # (Manual) (0.0-1.0) 10^3/uL Eosinophils # (Manual) (0-0.7) 10^3/uL Basophils # (Manual) (0-0.1) 10^3/uL Differential Comment WBC Morphology (NORMAL) Platelet Estimate (NORMAL) Platelet Morphology (NORMAL) RBC Morph Micro Appear (NORMAL) Sodium (135-145) mmol/L Potassium (3.5-5.0) mmol/L Chloride (101-111) mmol/L Carbon Dioxide (21-32) mmol/L Anion Gap (6-13) BUN (6-20) mg/dL Creatinine (0.4-1.0) mg/dL Estimated GFR (MDRD) (>89) Glucose (70-100) mg/dL POC Whole Bld Glucose 271 H (70 - 100) mg/dL Lactic Acid (0.5-2.2) mmol/L Calcium (8.5-10.3) mg/dL Magnesium (1.7-2.8) mg/dL - Current Medications Current Medications: Current Medications Generic Name Dose Route Start Last Admin Trade Name Freq PRN Reason Stop Dose Admin Acetaminophen 650 mg 04/05/19 22:54 04/08/19 09:56 Tylenol PO 650 mg Q6HR PRN Administration Pain 1 to 4 Albuterol 2.5 mg 04/05/19 23:58 04/08/19 20:25 INH 2.5 mg RTQ4H PRN Administration Wheezing Carvedilol 12.5 mg 04/06/19 09:00 04/10/19 08:41 Coreg PO 12.5 mg BID JOSE R Administration Citalopram Hydrobromide 40 mg 04/07/19 09:00 04/10/19 08:41 Celexa PO 40 mg DAILY JOSE R Administration Docusate Sodium 250 - 500 mg 04/09/19 09:00 04/10/19 08:41 Colace 250mg Capsule PO 250 mg DAILY JOSE R Administration Enoxaparin Sodium 40 mg 04/10/19 09:00 04/10/19 08:41 Lovenox SUBQ 40 mg DAILY JOSE R Administration Ferrous Gluconate 324 mg 04/09/19 10:00 04/10/19 08:41 Fergon PO 324 mg DAILYWM JOSE R Administration Heparin Sodium (Beef Lung) 30 - 50 unit 04/06/19 03:20 04/10/19 10:40 IVP 50 unit PRN PRN Administration Port Protocol (<24 hours) Cefepime HCl 2 gm/ Sodium 100 mls @ 200 mls/hr 04/05/19 23:00 04/10/19 10:42 Chloride IV Infused Q12H [facility] Infusion Fluconazole 100 mls @ 100 mls/hr 04/09/19 19:00 04/09/19 20:20 Diflucan 200 Mg/100 Ml IV Infused DAILY@1800 [facility] Infusion Insulin Aspart 3 - 11 unit 04/07/19 17:30 04/10/19 08:42 Novolog SUBQ Not Given 0800,1200,1700,2100 [facility] Protocol Insulin Glargine 45 unit 04/06/19 09:00 04/10/19 08:37 Lantus Solostar SUBQ 45 unit BID [facility] Administration Ketorolac Tromethamine 30 mg 04/09/19 00:46 04/09/19 01:21 Toradol Inj (30mg) IVP 04/14/19 00:45 30 mg Q6HR PRN Administration PAIN Lactulose 10 gm 04/09/19 18:13 04/10/19 08:42 Enulose PO Not Given DAILY [facility] Morphine Sulfate 2 mg 04/06/19 01:28 04/08/19 17:17 Morphine (Carpuject) IVP 2 mg Q3HR PRN Administration PAIN Multi-Ingredient Ointment 1 applic 04/06/19 03:19 04/06/19 06:35 Zinc Oxide TOP 1 applic PRN PRN Administration Skin Care Ondansetron HCl 4 mg 04/06/19 00:00 04/07/19 21:08 Zofran Inj IVP 4 mg Q4HR PRN Administration Nausea / Vomiting Oxycodone HCl 5 mg 04/07/19 08:18 04/09/19 22:18 Roxicodone PO 5 mg Q4HR PRN Administration PAIN Pantoprazole Sodium 40 mg 04/06/19 07:00 04/10/19 06:39 Protonix PO 40 mg QDAC [facility] Administration Polyethylene Glycol 17 gm 04/06/19 01:30 04/09/19 09:23 Miralax PO 17 gm DAILY PRN Administration Bowel Protocol Saccharomyces Boulardii 250 mg 04/07/19 08:03 04/10/19 08:41 Florastor PO 250 mg BIDWM JOSE R Administration Senna 8.6 - 17.2 mg 04/09/19 09:00 04/10/19 08:41 Senokot PO 8.6 mg DAILY JOSE R Administration Simethicone 80 mg 04/08/19 20:51 04/10/19 08:41 Mylicon PO 80 mg Q6H PRN Administration Gas Sodium Chloride 10 ml 04/05/19 22:54 04/10/19 05:37 Normal Saline Flush 0.9% IVP 10 ml PRN PRN Administration NEEDED PER PROVIDER ORDERS Sodium Chloride 10 ml 04/06/19 01:00 04/10/19 10:03 Normal Saline Flush 0.9% IVP 10 ml 0100,0900,1700 JOSE R Administration - Physical Exam Comments/Other: AAO, NAD EOMI, MMM unlabored RA L mastectomy inc open, dressed, no erythema/ cellulitis, no pain, no tense fluid collection MAEW Impression/Plan - Problem List Problem List: Neutropenic fever - no apparent source from port which is clean and intact; has negative blood cultures so unlikely seeded - left mastectomy inc sutures removed and scab and fibrinous exudate cleared --> no purulence, no cellullitis, no erythema, no ttp --> no signs of infection, unlikely source of fevers; wound swab did grow staph aureus and beta hemolytic strep- on abx already --> local wound care to poorly healed tissue now superficially open; wound benefit from wound care team with some chemical debridement in addition to what was done bedside by me; FU outpt if she leaves today - likely due to UTI which is a recurrent issue for pt
--- NOTE | 2019-04-10 11:17 | Discharge Plan ---
Discharge Plan Problem Reviewed?: Yes Disposition: Home, Self Care Condition: Good Prescriptions: Ferrous Gluconate [Iron] 240 mg PO DAILY #30 tablet Fluconazole [Diflucan] 150 mg PO DAILY #10 tablet Levofloxacin [Levaquin] 500 mg PO DAILY #8 tablet Oxybutynin [Oxytrol For Women] 1 each TD Q3D #30 patch.td.4 Diet: Diabetic Activity Restrictions: Activity as Tolerated Shower Restrictions: No Instruction Topics: Beta Hemolytic Streptococcus Culture Genital Urine, Supplements Iron Health Concerns: Neutropenic fever Chest wall abscess Breast cancer Beta hemolytic strep B UTI Urinary incontinence Hyperglycemia (high blood sugars) Plan of Treatment: Continue taking the antibiotics for the next 8 days Take only 1/2 of your lisinopril until you see your PCP since your blood pressures were a little too low for the full dose, resume all other medications as usual [facility] your new antibiotics from [facility] in [place] since the DOD is closed today and tomorrow Follow up with general surgery regarding your chest wound See wound care at the [facility], which may need to be re-ordered by your Primary care or Dr. Menon See your Oncologist as scheduled See your PCP within one week Try the new patch oxybutynin for urinary incontinence (fewer side effects) Care Goals: Prevent hospital stays or ED visits Prevent recurrence of this infection See your doctor regularly Treat your urinary incontinence to have a better quality of life Manage your side effects from your next chemo treatments Assessment: You were admitted to the hospital for a neutropenic fever with an unknown initial source. General surgery was consulted after a fluid collection was found in your chest wound for possible drainage. This was not drained, but started oozing, so a sample was obtained for culture. Your blood cultures remained negative, but your urine and wound cultures grew out a treatable pathogen. The final impression was that your fevers were due to your chest wound and from your bladder. Your blood sugar was temporarily elevated, (expected in infection). Your hair started to fall out, as expected from the chemo treatment, so your family brought in a hat for you. Your fever has stayed away for greater than 24 hours, so you may return home. You will need to continue the oral antibiotics for the next 8 days to get the full treatment for both your bladder and chest wound infections. Follow-Up Care: [facility] - Wound/Ostomy (Left chest wound-treating infection) No Smoking: If you smoke, Please STOP! Call for help. Follow-up with: Portillo Hurd MD [Primary Care Provider] -
--- NOTE | 2019-04-10 11:38 | DISCHARGE SUMMARY ---
"Discharge Summary Admit Date: 04/05/19 Discharge Date: 04/10/19 Discharging Provider: JUANI Pavon Primary Care Provider: Portillo Hurd Code Status: Attempt Resuscitation Condition at Discharge: Good Discharge Disposition: 01 Home, Self Care - DIAGNOSES Admission Diagnoses: Neutropenic fever Breast cancer CHF (congestive heart failure) Hypertension Diabetes mellitus Asthma Discharge Diagnoses with Status of Each Condition: Neutropenic fever-New on this admission, also with confusion which resolved, no fevers for greater than 24 hours, sent home on Levofloxacin to continue for the next 8 days at home Open wound of chest wall-Present on admission, linked to the presenting fevers, +wound culture, follow up needed with Dr. Menon, General surgery and wound care clinic Breast cancer-Chronic, recurrent, recent left mastectomy, in current chemotherapy per Oncology S/P left mastectomy-Now with a draining wound of her left chest wall, improved with treatment, continue oral antibiotics for the next 8 days, close follow up with general surgery Infection due to beta-hemolytic Streptococcus-New on this admission, + urine and + wound cultures with sensitivities, continue on Levofloxacin orally at home UTI (urinary tract infection)-New, recurrent, chronic incontinence, continue treatment with oral Levofloxacin Malorie infection of gential region-Not present on admission, started on diflucan, to be continued at home, exacerbated by chronic psoriasis Acute on chronic combined systolic and diastolic ACC/AHA stage C congestive heart failure-Not in acute HF, held lasix and lisinopril, instructed to resume at 1/2 dose to prevent hypotension Cardiomyopathy-Chronic, did not show on imaging, stable Hypertension-Chronic, stable Diabetes mellitus type 2, insulin dependent-Hyperglycemia resolved, no changes made to chronic meds Asthma-Chronic, no exacerbation, stable Anxiety-Chronic, no changes to antidepressant, stable Psoriasis-Chronic, worsened by groin yeast infection, stable - HPI History of Present Illness: Yanci Rousseau is a 74 year-old female with a past medical history of hypertension, hyperlipidemia, insulin dependent diabetes mellitus type 2, morbid obesity, chronic combined heart failure, cardiomyopathy, recurrent breast cancer, status post bilateral mastectomy without reconstruction, mixed urinary incontinence, recurrent UTIs, asthma, psoriasis, and anxiety disorder. The patient presented to the ED after a mechanical fall which happened around 5:30 pm on 04/05/19. She bumped her head against the wall and then slid down, stoppi ng hard. She denies chest pain, loss of consciousness, or dyspnea. She had been experiencing some abdominal pain that seemed to be intermittent and in different areas. She reported nausea with vomiting which started last night. Her family noted that she has been more confused, which also started last night. Imaging upon admission was unremarkable. Upon arrival to the ED, vital signs showed an elevated temperature of 39.5 degrees celsius. Labs showed a low neutrophil count of 1.1, Hgb 10.0, Hct 32.5, WBC 1.8, MPV 11.3, sodium 134, potassium 3.1, glucose 189, with no other significant abnormalities. She was noted to have recently started chemotherapy on 03/31/2019 for Stage I adenocarcinoma of the left breast and since then has been nauseous and has a metallic taste in her mouth. She was admitted for inpatient care, IV antibiotics, and a general surgery consult. - CONSULTS | PROCEDURES Consultations: General surgery, Dr. Kiara Garcia Procedures: NONE - HOSPITAL COURSE Hospital Course: The patient was admitted to the hospital for a neutropenic fever with an unknown initial source. General surgery was consulted after a fluid collection was found in the left chest wound for possible drainage. This was not drained, but started oozing, so a sample was obtained for culture. All blood cultures remained negative, but a urine sample, and a wound culture grew out a treatable pathogens. The final impression was that her fevers were due to the chest wound and from a UTI. The patient had hyperglycemia, which can be explained by her acute infection, this normalized on the morning of discharge. The patient had become upset by her hair falling out, as expected from the chemo treatment, so her family brought in a hat for her to wear. The patient remained afebrile for greater than 24 hours, so she was cleared for discharge. She was instructed to continue on her oral antibiotics for the next 8 days to get the full treatment for both the UTI and the chest wound infection. A wound care consult was made while inpatient, and suggested on the discharge plan to allow the patient to follow up at the outpatient wound [facility] clinic for ongoing wound care for her left chest wound. - ALLERGIES Allergies/Adverse Reactions: Allergies Allergy/AdvReac Type Severity Reaction Status Date / Time adhesive tape Allergy skin nelson Verified 03/16/19 10:46 Penicillins Allergy Anaphylaxis Verified 03/16/19 10:46 - MEDICATIONS Home Medications: Ambulatory Orders Medication Instructions Recorded Confirmed Insulin Glargine [Lantus Solostar] 45 units SQ BID 11/17/15 04/06/19 Lisinopril 10 mg PO DAILY 11/17/15 04/06/19 Simvastatin [Zocor] 20 mg PO QPM 11/17/15 04/06/19 carvediloL [Coreg] 12.5 mg PO BID 11/17/15 04/06/19 metFORMIN [Glucophage] 1,000 mg PO BIDWM 11/17/15 04/06/19 Citalopram [CeleXA] 40 mg PO DAILY 12/09/16 04/06/19 Albuterol Sulfate [Proair Hfa 1 - 2 puffs INH Q4H PRN 01/12/19 04/06/19 Inhaler] Furosemide 20 - 40 mg PO DAILY 01/12/19 04/06/19 oxyCODONE [Roxicodone] 5 mg PO Q4-6H PRN #20 tablet 03/21/19 04/06/19 Ondansetron [Ondansetron Odt] 8 mg PO BID PRN 03/22/19 04/06/19 Lidocaine/Prilocain 2.5% Cream 1 applic TOP Q8HR PRN 04/06/19 04/06/19 [Emla 2.5% Cream] Ferrous Gluconate [Iron] 240 mg PO DAILY #30 tablet 04/10/19 Fluconazole [Diflucan] 150 mg PO DAILY #10 tablet 04/10/19 Levofloxacin [Levaquin] 500 mg PO DAILY #8 tablet 04/10/19 Oxybutynin [Oxytrol For Women] 1 each TD Q3D #30 patch.td.4 04/10/19 - PHYSICAL EXAM AT DISCHARGE General Appearance: positive: No acute distress, Alert Eyes Bilateral: positive: Normal inspection, PERRL, No lid inflammation ENT: positive: Pharyngeal erythema Neck: positive: Thyroid nml, No JVD, Trachea midline Respiratory: positive: Chest non-tender, No respiratory distress, Breath sounds nml Cardiovascular: positive: Regular rate & rhythm, No gallop, Systolic murmur, Decreased pulse(s) Peripheral Pulses: positive: 2+ Abdomen: positive: Non-tender, Nml bowel sounds, Other (rounded, soft) Back: positive: Nml inspection Skin: positive: Warm, Dry, Skin rash (irritation in glo-rectal region), Other (pale) Extremities: positive: Non-tender, Full ROM, Nml appearance, No pedal edema Neurologic/Psychiatric: positive: Oriented x3, CN's nml (2-12), Motor nml, Mood/affect nml, Weakness, Sensory loss, Depressed mood/affect (flat affect, tearful at times, decreased sensation due to intermittent neuropathy) Reflexes: Bicep (R): 3+, Bicep (L): 3+ - LABS Result Diagrams: 04/10/19 05:20 04/10/19 05:20 - DIAGNOSTIC IMAGING Diagnostic Imaging Results: Final report reviewed Diagnostic Imaging Results Comments: EXAM: CHEST RADIOGRAPHY 04/05/2019 08:46 PM IMPRESSION: No change or acute cardiopulmonary abnormality. EXAM: CT HEAD 04/05/2019 08:50 PM IMPRESSION: 1. No acute intracranial findings. 2. Mild diffuse parenchymal volume loss. 3. Mild chronic microangiopathic white matter changes. EXAM: PELVIS RADIOGRAPHY 04/05/2019 09:33 PM IMPRESSION: No pelvic fracture. EXAM: CHEST RADIOGRAPHY 04/07/2019 08:17 AM IMPRESSION: No acute cardiopulmonary abnormality. EXAM: CT CHEST 04/08/2019 09:30 AM IMPRESSION: Small fluid collection at the left mastectomy site that may represent an abscess or seroma. Thickening of the skin at the left mastectomy site that may represent cellulitis or normal postoperative inflammatory changes. Atherosclerosis of the aorta and its branches, including the coronary arteries. Cholelithiasis without evidence of obstruction. - SEPSIS Current Stage of Sepsis: Ruled out - FOLLOW UP Follow Up: Continue taking the antibiotics for the next 8 days See your Oncologist as scheduled Follow up with Dr. Menon, General surgery for your left chest wound Go to the outpatient [facility] wound clinic, which may need to be re-ordered by your PCP or Dr. Menon See your PCP within one week Try the new patch oxybutynin for urinary incontinence (fewer side effects) - TIME SPENT Time Spent in Discharge (Minutes): 65"
== END 2019-04-10 13:00 | disposition home or self-care (01) | DRG 863 ==
LOC: EDUNIT# → ED 19:09 → MS2 22:55 → OBSVTOIN 04-06 10:04
PROVIDERS: ADMIT Internal Medicine; ATTEND Nurse Practitioner
DX: D70.9 Neutropenia, unspecified (principal); T81.41XA Infection following a procedure, superficial incisional surgical site, initial encounter; C50.412 Malignant neoplasm of upper-outer quadrant of left female breast; N39.0 Urinary tract infection, site not specified; I50.22 Chronic systolic (congestive) heart failure; E11.9 Type 2 diabetes mellitus without complications; L02.213 Cutaneous abscess of chest wall; L03.313 Cellulitis of chest wall; F32.9 Major depressive disorder, single episode, unspecified; I42.7 Cardiomyopathy due to drug and external agent; I50.42 Chronic combined systolic (congestive) and diastolic (congestive) heart failure; D70.3 Neutropenia due to infection; Z87.891 Personal history of nicotine dependence; Z91.81 History of falling; Z86.79 Personal history of other diseases of the circulatory system; T45.1X5A Adverse effect of antineoplastic and immunosuppressive drugs, initial encounter; R50.81 Fever presenting with conditions classified elsewhere; B37.2 Candidiasis of skin and nail; B95.1 Streptococcus, group B, as the cause of diseases classified elsewhere; B95.61 Methicillin susceptible Staphylococcus aureus infection as the cause of diseases classified elsewhere; I11.0 Hypertensive heart disease with heart failure; N39.46 Mixed incontinence; J45.909 Unspecified asthma, uncomplicated; C50.912 Malignant neoplasm of unspecified site of left female breast; E11.65 Type 2 diabetes mellitus with hyperglycemia; F41.9 Anxiety disorder, unspecified; L40.9 Psoriasis, unspecified; E78.5 Hyperlipidemia, unspecified; E66.01 Morbid (severe) obesity due to excess calories; I95.9 Hypotension, unspecified; K59.03 Drug induced constipation; L65.8 Other specified nonscarring hair loss; Z68.34 Body mass index [BMI] 34.0-34.9, adult; Z79.4 Long term (current) use of insulin; M25.551 Pain in right hip; Z79.899 Other long term (current) drug therapy; Z90.13 Acquired absence of bilateral breasts and nipples; Z17.1 Estrogen receptor negative status [ER-]; Z95.828 Presence of other vascular implants and grafts
CPT/HCPCS: 36415; 70450; 71045; 71046; 71260; 72170; 80048; 80053; 80202; 81001; 82607; 82728; 83036; 83540; 83605; 83615; 83690; 83735; 83880; 84466; 85025; 85045; 87040; 87070; 87086; 87181; 87205; 87275; 87276; 93005; 94640; 96365; 96372; 96375; 99285; A9270; G0378; J1650; J1815; J3370; Q9967; 81003

== ENCOUNTER 2019-10-11 10:30 | Outpatient (CLI) | payer MEDICARE, OTHER ==
[2019-10-11 11:17] LABS: CALCIUM 9.2 mg/dL (8.5-10.3); CREATININE 0.8 mg/dL (0.4-1.0)
== END 2019-10-11 10:31 | disposition home or self-care (01) ==
LOC: LAB 10:30
PROVIDERS: ATTEND Internal Medicine
DX: I50.22 Chronic systolic (congestive) heart failure (principal)
CPT/HCPCS: 36415; 80048

== ENCOUNTER 2019-10-13 12:06 | Outpatient (CLI) | payer MEDICARE, OTHER ==
[2019-10-13] MEDS ORDERED: GADOBUTROL 10 MMOL/10 ML VIAL ONE (12:41)
[2019-10-13] MEDS: GADOBUTROL 10 MMOL/10 ML VIAL IVP ONE (13:32)
--- NOTE | 2019-10-13 14:24 | MRI Report ---
PROCEDURE: Brain W/WO INDICATIONS: PULSATILE TINNITUS CONTRAST: IV CONTRAST: Gadavist ml: 8 TECHNIQUE: Noncontrast axial T1 spin echo, axial T2 fast spin echo, sagittal and axial FLAIR, coronal T2 fast sp in echo, axial gradient echo, axial diffusion and ADC through the brain. After the administration of contrast, axial and coronal T1 spin echo with fat saturation through the brain. COMPARISON: None. FINDINGS: Image quality: Excellent. CSF spaces: Basal cisterns are patent. No extra-axial fluid collections. Ventricles are normal in size and shape. Brain: No midline shift. No intracranial bleeds or masses. No abnormal intracranial enhancement. There is cerebral volume loss for age. There is periventricular white matter chronic small vessel is chemic change. The brainstem appears normal. Diffusion-weighted images demonstrate no acute ischemi c insults. No chronic ischemic insults. Normal intravascular flow voids are present. Skull and face: Calvarial marrow is normal in signal. Orbits appear normal. Sinuses: Sinuses and mastoids appear clear. IMPRESSION: 1. Mild volume loss and small vessel ischemic disease. 2. No acute process. No recent infarct. 3. No explanation for tinnitus. Reviewed by: Liv Molina MD on 10/13/2019 2:22 PM PDT Approved by: Liv Molina MD on 10/13/2019 2:22 PM PDT Station ID: [id number]
== END 2019-10-13 12:07 | disposition home or self-care (01) ==
LOC: DI 12:06
PROVIDERS: ATTEND Family Medicine
DX: H93.A9 Pulsatile tinnitus, unspecified ear (principal); I67.82 Cerebral ischemia
CPT/HCPCS: 70553; A9585

== ENCOUNTER 2020-04-25 08:23 | Outpatient (CLI) | payer MEDICARE, OTHER | END 2020-04-25 08:24 | disposition critical access hospital (66) | LOC: EMS 08:23 | PROVIDERS: ATTEND Emergency Medicine | DX: R47.81 Slurred speech (principal); R29.898 Other symptoms and signs involving the musculoskeletal system | CPT/HCPCS: A0425; A0429 ==

== ENCOUNTER 2020-04-25 08:42 | Emergency (ER) | payer MEDICARE, OTHER ==
[2020-04-25 09:15] LABS: BASOPHILS % (AUTO) 0.4 %; EOSINOPHILS # (AUTO) 0.1 10^3/uL (0.0-0.7); EOSINOPHILS % (AUTO) 0.5 %; HCT - HEMATOCRIT 36.4 % (37.0-47.0); HGB - HEMOGLOBIN 11.8 g/dL (12.0-16.0); LYMPHOCYTES # (AUTO) 1.2 10^3/uL (1.5-3.5); MEAN CORPUSCULAR HEMOGLOBIN 29.6 pg (27.0-31.0); MEAN CORPUSCULAR HGB CONC 32.4 g/dL (32.0-36.0); MEAN CORPUSCULAR VOLUME 91.5 fL (81.0-99.0); MEAN PLATELET VOLUME 10.3 fL (7.9-10.8); MONOCYTES # (AUTO) 0.3 10^3/uL (0.0-1.0); MONOCYTES % (AUTO) 3.6 %; NEUTROPHILS # (AUTO) 7.5 10^3/uL (1.5-6.6); PLT - PLATELET COUNT 193 10^3/uL (130-450); RED BLOOD COUNT 3.98 10^6/uL (4.20-5.40); RED CELL DISTRIBUTION WIDTH 13.5 % (12.0-15.0); WHITE BLOOD COUNT 9.2 x10^3/uL (4.8-10.8)
[2020-04-25 09:31] LABS: ALBUMIN 3.8 g/dL (3.2-5.5); ALBUMIN/GLOBULIN RATIO 1.1 (1.0-2.2); BILIRUBIN,TOTAL 0.7 mg/dL (0.2-1.0); CALCIUM 9.5 mg/dL (8.5-10.3); CREATININE 1.2 mg/dL (0.4-1.0); POTASSIUM 3.7 mmol/L (3.5-5.0); TOTAL PROTEIN 7.3 g/dL (6.7-8.2)
--- NOTE | 2020-04-25 09:35 | ED Physician Documentation ---
PD HPI FOCAL NEURO - Stated complaint Stated Complaint: SLURRED SPEECH - Chief complaint Chief Complaint: Neuro - History obtained from History obtained from: Patient, EMS - History of Present Illness Timing - onset: How many hours ago (1) Timing - details: Abrupt onset (awoke from sleep) Severity of deficit: Mild Weakness: No: Face, Arm, Hand, Leg, Foot, Right, Left Numbness: No: Face, Arm, Hand, Leg, Foot, Right, Left Associated symptoms: No: Headache, Nausea / vomiting, Seizure, Syncope, Fall, Head injury, Chest pain, Neck pain, Back pain, Fever Baseline status: positive: A&OX3, ambulatory, indep - Additional information Additional information: Patient is a 75-year-old female who presents to the emergency department with hypoglycemia earlier today. She felt weak and like she was having difficulty u sing her arms and forming words. She drank apple juice and this resolved. Currently feels normal. Blood sugar was 56 at home. She is on Lantus 40 Twice daily. She states her Lasix was increased recently as well. No recent illnesses. No fevers. No chills. No abdominal pain. No fevers. Review of Systems Ten Systems: 10 systems reviewed and negative Constitutional: denies: Fever, Chills Ears: denies: Ear pain Nose: denies: Rhinorrhea / runny nose, Congestion Throat: denies: Sore throat Respiratory: denies: Cough GI: denies: Abdominal Pain, Nausea, Vomiting, Diarrhea : denies: Dysuria, Frequency, Hesitancy Skin: denies: Rash Musculoskeletal: denies: Neck pain, Back pain Neurologic: denies: Headache PD PAST MEDICAL HISTORY - Past Medical History Past Medical History: Yes Cardiovascular: Congestive heart failure, Hypertension Respiratory: Asthma Neuro: None Endocrine/Autoimmune: Type 2 diabetes GI: None SEMICONDUCTOR WAFERS TESTER: None : Incontinence HEENT: None Psych: Depression Musculoskeletal: Osteoarthritis, Gout Derm: Psoriasis - Past Surgical History Past Surgical History: Yes /SEMICONDUCTOR WAFERS TESTER: section, Mastectomy HEENT: Cataracts - Present Medications Home Medications: Ambulatory Orders Medication Instructions Recorded Confirmed Insulin Glargine [Lantus Solostar] 45 units SQ BID 11/17/15 03/14/20 Lisinopril 10 mg PO DAILY 11/17/15 03/14/20 Simvastatin [Zocor] 20 mg PO QPM 11/17/15 03/14/20 carvediloL [Coreg] 12.5 mg PO BID 11/17/15 03/14/20 metFORMIN [Glucophage] 1,000 mg PO BIDWM 11/17/15 03/14/20 Citalopram [CeleXA] 40 mg PO DAILY 12/09/16 03/14/20 Albuterol Sulfate [Proair Hfa 1 - 2 puffs INH Q4H PRN 01/12/19 03/14/20 Inhaler] Furosemide 20 - 40 mg PO DAILY 01/12/19 03/14/20 Ondansetron [Ondansetron Odt] 8 mg PO BID PRN 03/22/19 03/14/20 Lidocaine/Prilocain 2.5% Cream 1 applic TOP Q8HR PRN 04/06/19 03/14/20 [Emla 2.5% Cream] Ferrous Gluconate [Iron] 240 mg PO DAILY #30 tablet 04/10/19 03/14/20 Fluconazole [Diflucan] 150 mg PO DAILY #10 tablet 04/10/19 03/14/20 levoFLOXacin [Levaquin] 500 mg PO DAILY #8 tablet 04/10/19 03/14/20 Sulfamethox/Trimeth 800/160 1 each PO BID #14 tablet 08/10/19 03/14/20 [Bactrim Ds 800/160] Nitrofurantoin Monohyd/M-Cryst 100 mg PO BID #10 cap 04/25/20 [Macrobid 100 mg Capsule] - Allergies Allergies/Adverse Reactions: Allergies Allergy/AdvReac Type Severity Reaction Status Date / Time adhesive tape Allergy skin nelson Verified 04/25/20 08:54 Penicillins Allergy Anaphylaxis Verified 04/25/20 08:54 - Social History Does the pt smoke?: No Smoking Status: Never smoker Does the pt drink ETOH?: Yes Does the pt have substance abuse?: No - Immunizations Immunizations are current?: No - POLST Patient has POLST: No POLST Status: Full Code PD ED PE NORMAL - Vitals Vital signs reviewed: Yes - General General: Alert and oriented X 3, No acute distress - HEENT HEENT: PERRL, Moist mucous membranes - Neck Neck: Supple, no meningeal sign - Cardiac Cardiac: RRR, Strong equal pulses - Respiratory Respiratory: No respiratory distress, Clear bilaterally - Abdomen Abdomen: Soft, Non tender, Non distended - Back Back: No spinal TTP - Derm Derm: Warm and dry, No rash - Extremities Extremities: No edema - Neuro Neuro: Alert and oriented X 3, tea taster 2-12 intact, No motor deficit, No sensory deficit, Normal speech - Psych Psych: Normal mood, Normal affect NIHSS - Time Time: 09:10 - Level of Consciousness Level of consciousness: (0) Alert, Keenly responsive LOC Questions: (0) Answers both Q's correct LOC Commands: (0) Performs both correctly - Gaze Best Gaze: (0) Normal - Visual Visual: (0) No loss - Facial Palsy Facial Palsy: (0) Normal, symmetrical movement - Motor Arms (both separate) Motor Arm (right): (0) No drift Motor Arm (left): (0) No drift - Motor Legs (both separate) Motor Leg (right): (0) No drift Motor Leg (left): (0) No drift - Limb Ataxia Limb Ataxia: (0) Absent - Sensory Sensory: (0) Normal - Best Language Best Language: (0) No aphasia - Dysarthria Dysarthria: (0) Normal - Extinction and Inattention (formally neg Extinction and inattention: (0) No abnormality - Total Score/Results Total Score/Result: 0 Results - Vitals Vitals: Vital Signs - 24 hr 04/25/20 04/25/20 08:54 09:05 Temperature 36 C L Heart Rate 62 57 L Respiratory 18 14 Rate Blood Pressure 134/68 H 113/62 O2 Saturation 99 99 Oxygen O2 Source Room air - Labs Labs: Laboratory Tests 04/25/20 04/25/20 04/25/20 09:13 09:13 09:30 WBC 9.2 RBC 3.98 L Hgb 11.8 L Hct 36.4 L MCV 91.5 MCH 29.6 MCHC 32.4 RDW 13.5 Plt Count 193 MPV 10.3 Neut # (Auto) 7.5 H Lymph # (Auto) 1.2 L [place] # (Auto) 0.3 Eos # (Auto) 0.1 Baso # (Auto) 0.0 Absolute Nucleated RBC 0.00 Nucleated RBC % 0.0 Sodium 140 Potassium 3.7 Chloride 99 L Carbon Dioxide 27 Anion Gap 14.0 H BUN 24 H Creatinine 1.2 H Estimated GFR (MDRD) 44 L Glucose 113 H Calcium 9.5 Total Bilirubin 0.7 AST 21 ALT 18 Alkaline Phosphatase 57 Total Protein 7.3 Albumin 3.8 Globulin 3.5 Albumin/Globulin Ratio 1.1 Urine Color YELLOW Urine Clarity SL. CLOUDY Urine pH 6.0 Ur Specific [place] 1.020 Urine Protein NEGATIVE Urine Glucose (UA) NEGATIVE Urine Ketones NEGATIVE Urine Occult Blood TRACE-INTA Urine Nitrite NEGATIVE Urine Bilirubin NEGATIVE Urine Urobilinogen 0.2 (NORMAL) Ur Leukocyte Esterase LARGE H Urine RBC 11-25 H Urine WBC >25 H Ur Squamous Epith Cells FEW Squamous Urine Bacteria Moderate H Ur Microscopic Review INDICATED Urine Culture Comments INDICATED PD MEDICAL DECISION MAKING - ED course Complexity details: reviewed old records, reviewed results, re-evaluated patient, considered differential, d/w patient ED course: 75-year-old female with hypoglycemia. This appears to have caused her slurred speech and weakness. No focal neurological deficits. Deficits resolved with eating and drinking, causing the raising of her blood sugar. Patient is asymptomatic currently. Patient is currently on Lantus 40 units twice daily. Will decrease to 36 units twice daily. We will treat her for the UTI as well. Her blood sugar remained appropriate during the emergency department stay. Eating and drinking without difficulty. Patient counseled regarding signs and symptoms for which I believe and urgent re-evaluation would be necessary. Patient with good understanding of and agreement to plan and is comfortable going home at this time This document was made in part using voice recognition software. While efforts are made to proofread this document, sound alike and grammatical errors may occur. Departure - Departure Disposition: 01 Home, Self Care Clinical Impression: Hypoglycemia UTI (urinary tract infection) Qualifiers: Urinary tract infection type: acute cystitis Hematuria presence: with hematuria Qualified Code(s): N30.01 - Acute cystitis with hematuria Condition: Good Instructions: ED UTI Cystitis Female Follow-Up: Portillo Hurd MD [Primary Care Provider] - As Needed Prescriptions: Nitrofurantoin Monohyd/M-Cryst [Macrobid 100 mg Capsule] 100 mg PO BID #10 cap Comments: All antibiotics until gone. Return if you worsen. Follow-up with your doctor for further care. Your blood sugar was low this morning, likely causing your symptoms. We will decrease your Lantus to 36 units twice a day rather than 40.
[2020-04-25 09:48] LABS: BILIRUBIN,URINE NEGATIVE (NEGATIVE); GLUCOSE, URINE (UA) NEGATIVE (NEGATIVE); KETONES,URINE (UA) NEGATIVE (NEGATIVE); LEUKOCYTE ESTERASE, URINE LARGE (NEGATIVE); NITRITE,URINE NEGATIVE (NEGATIVE); OCCULT BLOOD,URINE TRACE-INTA (NEGATIVE); PROTEIN,URINE NEGATIVE (NEGATIVE); UROBILINOGEN,URINE 0.2 (NORMAL) E.U./dL (NORMAL)
[2020-04-25 10:02] LABS: CLARITY,URINE SL. CLOUDY (CLEAR)
[2020-04-25 10:04] LABS: SQUAMOUS EPITHELIAL CELL,UR FEW Squamous (<= Few); WBC,URINE >25 /HPF (0-5)
[2020-04-25 10:05] LABS: BACTERIA,URINE Moderate /HPF (None Seen)
[2020-04-25] MEDS ORDERED: NITROFURANTOIN MACRO 100 MG CAPSULE PO STA (10:10)
[2020-04-25 13:28] VITALS: BP 103/56
== END 2020-04-25 10:44 | disposition home or self-care (01) ==
LOC: EDUNIT# → ED 08:42
DX: E11.649 Type 2 diabetes mellitus with hypoglycemia without coma (principal); Z79.4 Long term (current) use of insulin; N30.01 Acute cystitis with hematuria; I11.0 Hypertensive heart disease with heart failure; I50.9 Heart failure, unspecified
CPT/HCPCS: 36415; 80053; 81001; 85025; 87077; 87086; 87181; 99283; 99284; A9270; 81003

== ENCOUNTER 2020-12-20 14:02 | Outpatient (CLI) | payer MEDICARE, OTHER ==
[2020-12-20] MEDS ORDERED: IOVERSOL 320 100 ML VIAL IVP ONE (14:55)
--- NOTE | 2020-12-20 16:57 | CT Report ---
PROCEDURE: CHEST WO INDICATIONS: Supraclavicular lymphadenopathy TECHNIQUE: Noncontrast 1mm axial images were acquired from the pulmonary apices to the posterior costophrenic an gles. Axial 5 mm soft tissue kernel reconstructions were performed as well as 8 mm axial MIP and cor onal and sagittal 5 mm reformations. For radiation dose reduction, the following was used: automate d exposure control, adjustment of mA and/or kV according to patient size. COMPARISON: No comparison studies are available in PACS at this time secondary to technical issues. FINDINGS: Lungs: Scattered subsegmental scarring/atelectasis. No acute consolidation. Diffuse peribronchial cuf fing suggestive of nonspecific bronchitis and/or reactive airways disease. Ill-defined sub-4 mm nodul ar foci present within the anterior lingula for example image 211/4. Additional similar-appearing sub -5 mm nodules present in the right upper lobe for example image 80/4. Pleura: No pleural effusion or pneumothorax. Heart: Normal. Moderate coronary atherosclerosis. Lymph nodes: Normal. No definite supraclavicular lymphadenopathy. Suboptimal evaluation the absence o f IV contrast. No mediastinal or hilar enlarged lymph nodes by size criteria Thyroid: Grossly unremarkable Aorta: Normal in size. Scattered atheromatous calcifications seen in the aorta. Pulmonary arteries: Unremarkable Esophagus: Normal. Bones: Diffuse spondolytic changes and facet arthropathy. No compression fracture. Lateral curvature of the spine. Bilateral shoulder joint degeneration. Upper abdomen: Normal. IMPRESSION: No pathologically enlarged lymphadenopathy including in the supraclavicular region. Scattered sub-5 mm pulmonary nodules as detailed above, technically indeterminate without comparison studies. If these are available at a future date, an addendum could be performed otherwise recommend continued surveillance with CT in one year to exclude early metastatic or malignant possibilities. CLINICAL RECOMMENDATION STATEMENTS: In patients <35 years with an ITN detected on CT, MRI, or extrathyroidal ultrasound, the Committee re commends further evaluation with dedicated thyroid ultrasound if the nodule is "e1 cm and has no susp icious imaging features, and if the patient has normal life expectancy. In patients "e35 years with an ITN detected on CT, MRI, or extrathyroidal ultrasound, the Committee r ecommends further evaluation with dedicated thyroid ultrasound if the nodule is "e1.5 cm and has no s uspicious imaging features, and if the patient has normal life expectancy. (ACR, 2014) Reviewed by: Brown Iqbal MD on 12/20/2020 4:56 PM PDT Approved by: Brown Iqbal MD on 12/20/2020 4:56 PM PDT Station ID: [id number]
== END 2020-12-20 14:03 | disposition home or self-care (01) ==
LOC: LAB 14:02
PROVIDERS: ATTEND Surgery
DX: R59.0 Localized enlarged lymph nodes (principal); R91.8 Other nonspecific abnormal finding of lung field
CPT/HCPCS: 36415; 82565

== ENCOUNTER 2021-02-01 15:18 | Outpatient (CLI) | payer MEDICARE, OTHER | END 2021-02-01 15:19 | disposition EMS.NT | LOC: EMS 15:18 | DX: R41.89 Other symptoms and signs involving cognitive functions and awareness (principal) ==

== ENCOUNTER 2021-02-04 19:22 | Inpatient (IN) | payer MEDICARE, OTHER ==
--- NOTE | 2021-02-04 19:25 | ED Physician Documentation ---
PD HPI DYSPNEA - Stated complaint Stated Complaint: SOA - History obtained from History obtained from: Patient - History of Present Illness Timing - onset: How many days ago (2-3) Timing - details: Gradual onset Improved by: O2, Rest Worsened by: Exertion Associated symptoms: Cough, Other ("I don't know" (per patient when asked if she's been having fevers)). No: Hemoptysis, Wheezing, Chest pain / discomfort, Palpitations, Bilateral edema, Unilateral edema Recently seen: Clinic - Additional information Additional information: Evaluated in outpatient clinic today and referred to ED for c/o fatigue, chills, cough, dyspnea x 2 days. noted to be hypoxic in clinic. She tested COVID negative two days ago but she is unvaccinated and recently admitted for COVID pneumonia. Patient does not use oxygen at home. Review of Systems Constitutional: reports: Myalgias, Fatigue Nose: reports: Rhinorrhea / runny nose Cardiac: reports: Reviewed and negative Respiratory: reports: Dyspnea, Cough. denies: Hemoptysis, Wheezing GI: reports: Reviewed and negative : denies: Dysuria, Frequency Skin: reports: Reviewed and negative Musculoskeletal: reports: Reviewed and negative Neurologic: reports: Generalized weakness. 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: None : Incontinence HEENT: None Psych: Depression Musculoskeletal: Osteoarthritis, Gout Derm: Psoriasis - Past Surgical History Past Surgical History: Yes /SUPERVISOR SHOW OPERATIONS: section, Mastectomy HEENT: Cataracts - Present Medications Home Medications: Ambulatory Orders Medication Instructions Recorded Confirmed Insulin Glargine [Lantus Solostar] 45 units SQ BID 11/17/15 02/05/21 Lisinopril 10 mg PO DAILY 11/17/15 02/05/21 Simvastatin [Zocor] 20 mg PO QPM 11/17/15 02/05/21 carvediloL [Coreg] 12.5 mg PO BID 11/17/15 02/05/21 metFORMIN [Glucophage] 1,000 mg PO BIDWM 11/17/15 02/05/21 Citalopram [CeleXA] 40 mg PO DAILY 12/09/16 02/05/21 Albuterol Sulfate [Proair Hfa 1 - 2 puffs INH Q4H PRN 01/12/19 02/05/21 Inhaler] Furosemide 20 - 40 mg PO DAILY 01/12/19 02/05/21 Ferrous Gluconate [Iron] 240 mg PO DAILY #30 tablet 04/10/19 02/05/21 - Allergies Allergies/Adverse Reactions: Allergies Allergy/AdvReac Type Severity Reaction Status Date / Time adhesive tape Allergy skin nelson Verified 02/04/21 19:51 Penicillins Allergy Anaphylaxis Verified 02/04/21 19:51 - Social History Does the pt smoke?: No Smoking Status: Never smoker Does the pt drink ETOH?: Yes Does the pt have substance abuse?: No - Immunizations Immunizations are current?: No - POLST Patient has POLST: No POLST Status: Full Code PD ED PE NORMAL - Vitals Vital signs reviewed: Yes - General General: Alert and oriented X 3, No acute distress, Well developed/nourished - HEENT HEENT: Moist mucous membranes - Neck Neck: Supple, no meningeal sign - Cardiac Cardiac: No murmur - Respiratory Respiratory: No respiratory distress - Abdomen Abdomen: Soft, Non tender - Derm Derm: Normal color, Warm and dry - Extremities Extremities: No edema - Neuro Neuro: Alert and oriented X 3 PD ED PE EXPANDED - Cardiac Cardiac: Tachy, Regular Rhythm - Respiratory Respiratory: Rhonchi (scattered bilateral rhonchi) Results - Vitals Vitals: Vital Signs - 24 hr 02/05/21 02/05/21 02/05/21 09:00 11:00 13:00 Heart Rate 74 78 80 Respiratory 18 19 19 Rate Blood Pressure 117/93 H 117/66 116/60 O2 Saturation 99 94 95 02/05/21 02/05/21 02/05/21 15:00 16:00 18:00 Heart Rate 76 76 82 Respiratory 19 18 18 Rate Blood Pressure 135/82 H 127/73 116/69 O2 Saturation 96 95 95 Oxygen O2 Source Nasal cannula Oxygen Flow Rate 2 - Labs Labs: Laboratory Tests 02/04/21 02/04/21 02/04/21 20:14 20:38 20:38 WBC 6.6 RBC 3.84 L Hgb 11.1 L Hct 34.2 L MCV 89.1 MCH 28.9 MCHC 32.5 RDW 13.8 Plt Count 244 MPV 9.7 Neut # (Auto) 5.0 Lymph # (Auto) 0.8 L [place] # (Auto) 0.8 Eos # (Auto) 0.0 Baso # (Auto) 0.0 Absolute Nucleated RBC 0.00 Nucleated RBC % 0.0 Sodium 131 L Potassium 4.1 Chloride 92 L Carbon Dioxide 27 Anion Gap 12.0 BUN 29 H Creatinine 1.5 H Estimated GFR (MDRD) 34 L Glucose 76 Lactic Acid Calcium 9.5 Total Bilirubin 1.1 H AST 94 H ALT 61 H Alkaline Phosphatase 52 B-Natriuretic Peptide Total Protein 8.1 Albumin 3.5 Globulin 4.6 H Albumin/Globulin Ratio 0.8 L Lipase 49 Urine Color Urine Clarity Urine pH Ur Specific [place] Urine Protein Urine Glucose (UA) Urine Ketones Urine Occult Blood Urine Nitrite Urine Bilirubin Urine Urobilinogen Ur Leukocyte Esterase Urine RBC Urine WBC Ur Squamous Epith Cells Urine Bacteria Urine Mucus Ur Microscopic Review Urine Culture Comments Nasal Adenovirus (PCR) NOT DETECTED Nasal B. parapertussis DNA (PCR) NOT DETECTED Nasal Coronavir 229E PCR NOT DETECTED Nasal Coronavir HKU1 PCR NOT DETECTED Nasal Coronavir NL63 PCR NOT DETECTED Nasal Coronavir OC43 PCR NOT DETECTED Nasal Enterovir/Rhinovir PCR NOT DETECTED Nasal Influenza B PCR NOT DETECTED Nasal Influenza A PCR NOT DETECTED Nasal Parainfluen 1 PCR NOT DETECTED Nasal Parainfluen 2 PCR NOT DETECTED Nasal Parainfluen 3 PCR NOT DETECTED Nasal Parainfluen 4 PCR NOT DETECTED Nasal RSV (PCR) NOT DETECTED Nasal B.pertussis DNA PCR NOT DETECTED Nasal C.pneumoniae (PCR) NOT DETECTED Dennis Human Metapneumo PCR NOT DETECTED Nasal M.pneumoniae (PCR) NOT DETECTED Nasal SARS-CoV-2 (PCR) DETECTED A 02/04/21 02/04/21 02/04/21 20:38 20:38 22:02 WBC RBC Hgb Hct MCV MCH MCHC RDW Plt Count MPV Neut # (Auto) Lymph # (Auto) [place] # (Auto) Eos # (Auto) Baso # (Auto) Absolute Nucleated RBC Nucleated RBC % Sodium Potassium Chloride Carbon Dioxide Anion Gap BUN Creatinine Estimated GFR (MDRD) Glucose Lactic Acid 1.3 Calcium Total Bilirubin AST ALT Alkaline Phosphatase B-Natriuretic Peptide 155 H Total Protein Albumin Globulin Albumin/Globulin Ratio Lipase Urine Color YELLOW Urine Clarity CLEAR Urine pH 5.5 Ur Specific [place] 1.020 Urine Protein 30 H Urine Glucose (UA) NEGATIVE Urine Ketones TRACE Urine Occult Blood TRACE-LYSE Urine Nitrite NEGATIVE Urine Bilirubin NEGATIVE Urine Urobilinogen 0.2 (NORMAL) Ur Leukocyte Esterase NEGATIVE Urine RBC None Seen Urine WBC 0-3 Ur Squamous Epith Cells MANY Squamous H Urine Bacteria Rare Urine Mucus Few Strands Ur Microscopic Review INDICATED Urine Culture Comments NOT INDICATED Nasal Adenovirus (PCR) Nasal B. parapertussis DNA (PCR) Nasal Coronavir 229E PCR Nasal Coronavir HKU1 PCR Nasal Coronavir NL63 PCR Nasal Coronavir OC43 PCR Nasal Enterovir/Rhinovir PCR Nasal Influenza B PCR Nasal Influenza A PCR Nasal Parainfluen 1 PCR Nasal Parainfluen 2 PCR Nasal Parainfluen 3 PCR Nasal Parainfluen 4 PCR Nasal RSV (PCR) Nasal B.pertussis DNA PCR Nasal C.pneumoniae (PCR) Dennis Human Metapneumo PCR Nasal M.pneumoniae (PCR) Nasal SARS-CoV-2 (PCR) - Rads (name of study) chest xray Radiology: Prelim report reviewed, See rad report PD MEDICAL DECISION MAKING - ED course Complexity details: reviewed results, re-evaluated patient, considered differential, d/w patient ED course: COVID-19 +, with dyspnea and hypoxia that corrects with oxygen. plan is to admit, but no beds available at [facility] nor any surrounding hospital, so will have to board in ED until bed becomes available. given decadron 6 mg IV Departure - Departure Disposition: 66 [facility] DC/Xfer Clinical Impression: COVID-19 Discharge Date/Time: 02/05/21 23:45
[2021-02-04 20:43] LABS: BASOPHILS % (AUTO) 0.2 %; EOSINOPHILS % (AUTO) 0.2 %; HCT - HEMATOCRIT 34.2 % (37.0-47.0); HGB - HEMOGLOBIN 11.1 g/dL (12.0-16.0); LYMPHOCYTES # (AUTO) 0.8 10^3/uL (1.5-3.5); LYMPHOCYTES % (AUTO) 11.7 %; MEAN CORPUSCULAR HEMOGLOBIN 28.9 pg (27.0-31.0); MEAN CORPUSCULAR HGB CONC 32.5 g/dL (32.0-36.0); MEAN CORPUSCULAR VOLUME 89.1 fL (81.0-99.0); MEAN PLATELET VOLUME 9.7 fL (7.9-10.8); MONOCYTES # (AUTO) 0.8 10^3/uL (0.0-1.0); MONOCYTES % (AUTO) 11.7 %; NEUTROPHILS % (AUTO) 75.1 %; PLT - PLATELET COUNT 244 10^3/uL (130-450); RED BLOOD COUNT 3.84 10^6/uL (4.20-5.40); RED CELL DISTRIBUTION WIDTH 13.8 % (12.0-15.0); WHITE BLOOD COUNT 6.6 x10^3/uL (4.8-10.8)
[2021-02-04 20:57] LABS: ALBUMIN 3.5 g/dL (3.2-5.5); ALBUMIN/GLOBULIN RATIO 0.8 (1.0-2.2); BILIRUBIN,TOTAL 1.1 mg/dL (0.2-1.0); CALCIUM 9.5 mg/dL (8.5-10.3); CREATININE 1.5 mg/dL (0.4-1.0); POTASSIUM 4.1 mmol/L (3.5-5.0); TOTAL PROTEIN 8.1 g/dL (6.7-8.2)
[2021-02-04 21:19] LABS: CORONAVIRUS 229E-RESP PCR NOT DETECTED; CORONAVIRUS HKU1-RESP PCR NOT DETECTED; CORONAVIRUS NL63-RESP PCR NOT DETECTED; CORONAVIRUS OC43-RESP PCR NOT DETECTED; HUMAN METAPNEUMOVIRUS NOT DETECTED; INFLUENZA A- RESP PCR PANEL NOT DETECTED; RHINOVIRUS/ENTEROVIRUS NOT DETECTED; SARS-CoV-2 -RESP PCR PANEL DETECTED
[2021-02-04 21:20] LABS: B. PARAPERTUSSIS- RESP PCR PAN NOT DETECTED; B. PERTUSSIS- RESP PCR PANEL NOT DETECTED; C. PNEUMONIAE- RESP PCR PANEL NOT DETECTED; INFLUENZA B - RESP PCR PANEL NOT DETECTED; M. PNEUMONIAE- RESP PCR PANEL NOT DETECTED; PARAINFLUENZA VIRUS 1 NOT DETECTED; PARAINFLUENZA VIRUS 2 NOT DETECTED; PARAINFLUENZA VIRUS 3 NOT DETECTED; PARAINFLUENZA VIRUS 4 NOT DETECTED; RSV- RESP PCR PANEL NOT DETECTED
--- NOTE | 2021-02-04 21:27 | XRAY Report ---
PROCEDURE: Chest 1 View X-Ray INDICATIONS: dyspnea, cough TECHNIQUE: One view of the chest was acquired. COMPARISON: April 07, 2019 FINDINGS: SUPPORT DEVICES: None. LUNGS/PLEURA: Reduced lung volumes. No focal consolidation, pleural effusion or space-occupying pneum othorax. MEDIASTINUM: The cardiomediastinal silhouette is within normal limits. BONES/SOFT TISSUES: No acute abnormality. Elevation of the right diaphragm, unchanged. IMPRESSION: 1.No acute cardiopulmonary abnormality. Reviewed by: Francisco Wellington MD on 02/04/2021 9:25 PM [facility] Approved by: Francisco Wellington MD on 02/04/2021 9:25 PM [facility] Station ID: [id number]
[2021-02-04] MEDS ORDERED: DEXAMETHASONE 10 MG/ML VIAL IVP STA (21:46)
[2021-02-04 22:14] LABS: BILIRUBIN,URINE NEGATIVE (NEGATIVE); GLUCOSE, URINE (UA) NEGATIVE (NEGATIVE); KETONES,URINE (UA) TRACE mg/dL (NEGATIVE); LEUKOCYTE ESTERASE, URINE NEGATIVE (NEGATIVE); NITRITE,URINE NEGATIVE (NEGATIVE); OCCULT BLOOD,URINE TRACE-LYSE (NEGATIVE); PH,URINE 5.5 PH (5.0-7.5); PROTEIN,URINE 30 mg/dL (NEGATIVE); UROBILINOGEN,URINE 0.2 (NORMAL) E.U./dL (NORMAL)
[2021-02-04 22:15] LABS: CLARITY,URINE CLEAR (CLEAR)
[2021-02-04 22:21] LABS: BACTERIA,URINE Rare /HPF (None Seen); MUCUS,URINE Few Strands; RBC,URINE None Seen /HPF (0-5); SQUAMOUS EPITHELIAL CELL,UR MANY Squamous (<= Few); WBC,URINE 0-3 /HPF (0-5)
[2021-02-05] MEDS ORDERED: ONDANSETRON 4 MG/2 ML VIAL IVP PRN (18:04)
[2021-02-05] MEDS ORDERED: ACETAMINOPHEN 325 MG TABLET PO PRN (18:04)
[2021-02-05] MEDS ORDERED: SODIUM CHLORIDE FLUSH 0.9% 10 ML SYRINGE IVP PRN (18:04)
[2021-02-05] MEDS ORDERED: DEXAMETHASONE 10 MG/ML VIAL IVP ONE (18:11)
--- NOTE | 2021-02-05 18:23 | HISTORY & PHYSICAL EXAMINATION ---
Chief Complaint - Chief Complaint Chief Complaint: hypoxia History of Present Illness - Admitted From Admitted From:: ER - History Obtained From Records Reviewed: Hawa History obtained from: pt, hawa Exam Limitations: no - History of Present Illness HPI Comment/Other: This is a 75 years-old female with a past medical history significant for breast cancer with Mastectomy, Diabetic, CHF, CKD, Hypertension, hyperlipidemia, asthma, psoriasis, gout, depression, incontinence, Who presented to the ER complaining difficulty breathing. Patient reported she had a positive COVID-19 test about 10 days ago. She was unvaccinated. Report she gradually feel more shortness breathing. She also report on and off fever in the home. Patient denies chest pain, Nausea, vomiting, diarrhea. In the ER, patient was afebrile, patient had 89% oxygen saturation on room air with tachypnea. Chest x-ray will return the time show No acute cardiopulmonary abnormality. Given above medical condition, medical team was consulted for admission. Discussed care plan with patient, patient report she is ok to have CPR but she declined to have Intubation due to her terrible experience in the past. 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 Patient report she was adopted, she does not know her biological parents medical conditions. sister: breast cancer in late 40's Social History Notes: She does not smoke, drink or use illicit drugs - POLST Patient has POLST: No POLST Status: Full Code Meds/Allgy - Home Medications Home Medications: Ambulatory Orders Medication Instructions Recorded Confirmed Insulin Glargine [Lantus Solostar] 45 units SQ BID 11/17/15 02/05/21 Lisinopril 10 mg PO DAILY 11/17/15 02/05/21 Simvastatin [Zocor] 20 mg PO QPM 11/17/15 02/05/21 carvediloL [Coreg] 12.5 mg PO BID 11/17/15 02/05/21 metFORMIN [Glucophage] 1,000 mg PO BIDWM 11/17/15 02/05/21 Citalopram [CeleXA] 40 mg PO DAILY 12/09/16 02/05/21 Albuterol Sulfate [Proair Hfa 1 - 2 puffs INH Q4H PRN 01/12/19 02/05/21 Inhaler] Furosemide 20 - 40 mg PO DAILY 01/12/19 02/05/21 Ferrous Gluconate [Iron] 240 mg PO DAILY #30 tablet 04/10/19 02/05/21 - Allergies Allergies/Adverse Reactions: Allergies Allergy/AdvReac Type Severity Reaction Status Date / Time adhesive tape Allergy skin nelson Verified 02/04/21 19:51 Penicillins Allergy Anaphylaxis Verified 02/04/21 19:51 Review of Systems - Constitutional Constitutional: reports: Fever - Eyes Eyes: denies: Pain - Ears, Nose & Throat Ears, Nose & Throat: denies: Ear pain - Cardiovascular Cariovascular: reports: Exertional dyspnea. denies: Palpitations, Chest pain, Syncope - Respiratory Respiratory: reports: Cough, SOB with exertion - Gastrointestinal Gastrointestinal: denies: Abdominal pain, Diarrhea, Nausea, Vomiting - Genitourinary Genitourinary: reports: Incontinence. denies: Dysuria - Musculoskeletal Musculoskeletal: denies: Muscle pain - Integumentary Integumentary: denies: Rash - Neurological Neurological: denies: Focal weakness, Headache, Dizziness, Numbness, Seizures, Incoordination, Slurred speech - Psychiatric Psychiatric: denies: Depression - Endocrine Endocrine: denies: Polyuria Exam - Vital Signs Vital Signs: Vital Signs x48h Pulse Resp BP Pulse Ox 02/05/21 18:00 82 18 116/69 95 02/05/21 16:00 76 18 127/73 95 02/05/21 15:00 76 19 135/82 H 96 02/05/21 13:00 80 19 116/60 95 02/05/21 11:00 78 19 117/66 94 - Physical Exam General Appearance: positive: No acute distress, Alert. negative: Lethargic Eyes Bilateral: positive: Normal inspection, No lid inflammation ENT: positive: ENT inspection nml, No signs of dehydration. negative: Purulent nasal drainage Neck: positive: Nml inspection, Trachea midline. negative: Tracheal deviation Respiratory: positive: Chest non-tender, No respiratory distress. negative: Wheezes Cardiovascular: positive: Regular rate & rhythm. negative: Tachycardia, Bradycardia, Systolic murmur Peripheral Pulses: positive: 2+ Abdomen: positive: Non-tender, Nml bowel sounds, No distention. negative: Tenderness Back: positive: Nml inspection Skin: positive: Color nml, Warm, Dry. negative: Cyanosis Extremities: positive: Non-tender, Nml appearance Neurologic/Psychiatric: positive: Oriented x3, Sensation nml. negative: Weakness, Sensory loss, Facial droop, Slurred/abnml speech, Depressed mood/affect Conclusion/Plan - Problem List (1) Acute hypoxemic respiratory failure due to COVID-19 Conclusion/Plan: initially in the ER, Patient had 89% oxygen saturation on room air with tachypnea. Now she had 94% oxygen saturation on 2 L oxygen on nasal cannula. pt is positive for Covid 19. we will start on Remdesivir, continue Decatron, and lovenox, supplement of O2 as needed. (2) Chronic combined systolic (congestive) and diastolic (congestive) heart failure Conclusion/Plan: pt hx of chronic combined CHF, likely she is not exacerbation. we will resume home Coreg, Lasix, lipitor, and tele monitor (3) Diabetes Conclusion/Plan: pt is steroid for Covid 19 treatment, will add lantus, slide scale, hypoglycemia protoco, check A1Cl (4) HTN (hypertension) Conclusion/Plan: stable, will resume home meds (5) Asthma Conclusion/Plan: it is likely not exacerbation. pt is on steroid for Covid treatment, resume home albuterol MDI (6) CKD (chronic kidney disease) Conclusion/Plan: pt has hx of CKD III, avoid of nephrotixic agents, daily lab monitor - Lab Results Fish Bones: 02/06/21 05:55 02/06/21 05:55 Core Measures - Anticipated LOS I expect patient to be DC'd or transferred within 96 hours.: Yes - DVT/VTE - Prophylaxis VTE/DVT Device ordered at admit?: Yes VTE/DVT Prophylaxis med ordered at admit?: Yes
[2021-02-05] MEDS ORDERED: SODIUM CHLORIDE 0.9% 1,000 ML IV SCH (19:00)
[2021-02-05] MEDS ORDERED: ALBUTEROL NEB 2.5 MG/3 ML INH PRN (19:28)
[2021-02-05] MEDS: ENOXAPARIN 40 MG/0.4 ML SYRINGE SUBQ SCH (19:45)
[2021-02-05] MEDS ORDERED: INSULIN ASPART 300 UNIT/3 ML PEN SUBQ SCH (21:00)
[2021-02-05] MEDS ORDERED: carvediloL 12.5 MG TABLET PO SCH (21:00)
[2021-02-05] MEDS ORDERED: NON FORMULARY MED (Simvastatin [Zocor] 20 MG Tablet) PO SCH (21:00)
[2021-02-05] MEDS: ATORVASTATIN 10 MG TABLET PO SCH (22:03)
[2021-02-05] MEDS: NYSTATIN POWDER 15 GM TOP SCH (22:04)
[2021-02-06] MEDS: SODIUM CHLORIDE FLUSH 0.9% 10 ML SYRINGE IVP SCH ×3 (00:48→17:42)
[2021-02-06 06:32] LABS: BASOPHILS % (AUTO) 0.2 %; HCT - HEMATOCRIT 32.2 % (37.0-47.0); HGB - HEMOGLOBIN 10.4 g/dL (12.0-16.0); LYMPHOCYTES # (AUTO) 0.4 10^3/uL (1.5-3.5); LYMPHOCYTES % (AUTO) 7.6 %; MEAN CORPUSCULAR HEMOGLOBIN 28.9 pg (27.0-31.0); MEAN CORPUSCULAR HGB CONC 32.3 g/dL (32.0-36.0); MEAN CORPUSCULAR VOLUME 89.4 fL (81.0-99.0); MEAN PLATELET VOLUME 9.7 fL (7.9-10.8); MONOCYTES # (AUTO) 0.4 10^3/uL (0.0-1.0); MONOCYTES % (AUTO) 7.6 %; NEUTROPHILS # (AUTO) 4.6 10^3/uL (1.5-6.6); NEUTROPHILS % (AUTO) 83.1 %; PLT - PLATELET COUNT 285 10^3/uL (130-450); RED CELL DISTRIBUTION WIDTH 13.8 % (12.0-15.0); WHITE BLOOD COUNT 5.5 x10^3/uL (4.8-10.8)
[2021-02-06 06:41] LABS: CALCIUM 9.4 mg/dL (8.5-10.3); CREATININE 1.2 mg/dL (0.4-1.0)
[2021-02-06] MEDS: FERROUS GLUCONATE 324 MG TABLET PO SCH (08:37)
[2021-02-06] MEDS: ENOXAPARIN 40 MG/0.4 ML SYRINGE SUBQ SCH (08:38)
[2021-02-06] MEDS: DEXAMETHASONE 10 MG/ML VIAL IVP SCH (08:38)
[2021-02-06] MEDS: NYSTATIN POWDER 15 GM TOP SCH ×2 (08:42→20:40)
[2021-02-06] MEDS ORDERED: INSULIN GLARGINE 300 UNIT/3 ML PEN SUBQ SCH (09:00)
[2021-02-06] MEDS ORDERED: ENOXAPARIN 40 MG/0.4 ML SYRINGE SUBQ SCH (09:00)
[2021-02-06] MEDS ORDERED: REMDESIVIR 100MG VIAL 200 MG in SODIUM CHLORIDE 0.9% 250 ML IV ONE (09:00)
[2021-02-06] MEDS: CITALOPRAM HYDROBROMIDE 20 MG TABLET PO SCH (09:56)
[2021-02-06] MEDS: FUROSEMIDE 20 MG TABLET PO SCH (09:56)
[2021-02-06] MEDS: carvediloL 12.5 MG TABLET PO SCH ×2 (09:56→20:38)
[2021-02-06 10:23] LABS: ESTIMATED AVERAGE GLUCOSE 148 mg/dL (70-100); HEMOGLOBIN A1c% 6.8 % (4.27-6.07)
--- NOTE | 2021-02-06 10:49 | PHARMACY PROGRESS NOTE ---
- Best Possible Medication History Admit Date and Time: 02/05/211803 Processed by: Nursing Medication History completed: Yes (MED REC COMPLETED BY NURSING) As the person ultimately responsible for medication therapy, providers are able to order a medication from an existing home medication list in [facility] via the "Reconcile Routine" prior to Confirmation of that medication by medical support assistant. Such practice is discouraged except when the physician, in their clinical judgment, deems that a medical need exists for a medication without regard to previous use.
[2021-02-06] MEDS: INSULIN ASPART 300 UNIT/3 ML PEN SUBQ SCH ×3 (11:59→20:39)
[2021-02-06] MEDS ORDERED: ALBUTEROL 1 PUFF INH PRN (12:18)
[2021-02-06] MEDS ORDERED: INSULIN ASPART 300 UNIT/3 ML PEN SUBQ ONE (15:07)
--- NOTE | 2021-02-06 15:15 | PROVIDER PROGRESS NOTE ---
Assessment/Plan - Problem List (1) Acute hypoxemic respiratory failure due to COVID-19 Assessment/Plan: 02/06 pt had 92% O2 sat on 2 liter of O2, she has no acute respiratory distress now. continue Remdesivir, continue Decatron, and lovenox, supplement of O2 as needed. initially in the ER, Patient had 89% oxygen saturation on room air with tachypnea. Now she had 94% oxygen saturation on 2 L oxygen on nasal cannula. pt is positive for Covid 19. we will start on Remdesivir, continue Decatron, and l ovenox, supplement of O2 as needed. (2) Chronic combined systolic (congestive) and diastolic (congestive) heart failure Conclusion/Plan: 02/06 stable, continue home Coreg, Lasix, lipitor, and tele monitor pt hx of chronic combined CHF, likely she is not exacerbation. we will resume home Coreg, Lasix, lipitor, and tele monitor (3) Diabetes Conclusion/Plan: 02/06 elevated glucose level, likely caused by steroid for Covid 19 treatment, add Novolog and increase Lantus as well, continue glucose check ACHS, hypoglyce emy protocol, A1C is 6.8. pt is steroid for Covid 19 treatment, will add lantus, slide scale, hypoglycemia protoco, check A1Cl (4) HTN (hypertension) Conclusion/Plan: stable, will resume home meds (5) Asthma Conclusion/Plan: it is likely not exacerbation. pt is on steroid for Covid treatment, resume home albuterol MDI (6) CKD (chronic kidney disease) Conclusion/Plan: 02/06 improved, creatinine reduce 1.2 on today, continue lab monitor pt has hx of CKD III, avoid of nephrotixic agents, daily lab monitor - Current Meds Current Meds: Current Medications Generic Name Dose Route Start Last Admin Trade Name Freq PRN Reason Stop Dose Admin Atorvastatin Calcium 10 mg 02/05/21 21:00 02/05/21 22:03 Atorvastatin 10 Mg Tablet PO 10 mg QPM JOSE R Administration Carvedilol 12.5 mg 02/06/21 09:00 02/06/21 09:56 Carvedilol 12.5 Mg Tablet PO 12.5 mg BID JOSE R Administration Citalopram Hydrobromide 40 mg 02/06/21 09:00 02/06/21 09:56 Citalopram Hydrobromide 20 Mg Tablet PO 40 mg DAILY JOSE R Administration Dexamethasone 6 mg 02/06/21 09:00 02/06/21 08:38 Dexamethasone 10 Mg/Ml Vial IVP 6 mg DAILY JOSE R Administration Enoxaparin Sodium 40 mg 02/05/21 18:42 02/06/21 08:38 Enoxaparin 40 Mg/0.4 Ml Syringe SUBQ 40 mg DAILY JOSE R Administration Ferrous Gluconate 324 mg 02/06/21 08:00 02/06/21 08:37 Ferrous Gluconate 324 Mg Tablet PO 324 mg DAILYWM JOSE R Administration Furosemide 20 mg 02/06/21 09:00 02/06/21 09:56 Furosemide 20 Mg Tablet PO 20 mg DAILY JOSE R Administration Insulin Aspart 3 - 11 unit 02/06/21 12:00 02/06/21 11:59 Insulin Aspart 300 Unit/3 Ml Pen SUBQ 9 unit 0800,1200,1700,2100 JOSE R Administration Protocol Nystatin 1 applic 02/05/21 21:00 02/06/21 08:42 Nystatin Powder 15 Gm TOP 1 applic BID JOSE R Administration Sodium Chloride 10 ml 02/06/21 01:00 02/06/21 08:38 Sodium Chloride Flush 0.9% 10 Ml Syringe IVP 10 ml 0100,0900,1700 JOSE R Administration - Lab Result Fish Bone Diagrams: 02/06/21 05:55 02/06/21 05:55 - Additional Planning My Orders: My Active Orders 02/05/21 18:04 Activity Orders [RC] Q2HR IO [RC] IOSHIFT Initiate Bowel Care Protocol [RC] .protocol Initiate Line Care Protocol [RC] QSHI Initiate Personal Care Protoco [RC] .protocol Telemetry- [RC] Q4HR Vital Signs [RC] 0800,1600,0000 Acetaminophen [Tylenol] 650 mg PO Q4HR PRN Ondansetron Inj [Zofran Inj] 4 mg IVP Q6HR PRN Sodium Chloride Flush 0.9% [Normal Saline Flush 0.9%] 10 ml IVP PRN PRN Code Status [OTHERS] Routine Condition of Patient [OTHERS] Routine DVT Prophylaxis [OTHERS] Routine 02/05/21 18:06 SCDs [RC] QSHIFT 02/05/21 18:15 Blood Glucose Checks - Eating [RC] 0800,1200,1700,2100 Initiate Hypoglycemia Protocol [RC] .protocol 02/05/21 18:42 Enoxaparin [Lovenox] 40 mg SUBQ DAILY 02/05/21 19:28 Albuterol 2.5 mg INH RTQ4H PRN 02/05/21 21:00 Atorvastatin [Lipitor] 10 mg PO QPM Nystatin [Nystop] 1 applic TOP BID 02/06/21 01:00 Sodium Chloride Flush 0.9% [Normal Saline Flush 0.9%] 10 ml IVP 0100,0900,1700 02/06/21 08:00 Ferrous Gluconate [Fergon] 324 mg PO DAILYWM 02/06/21 09:00 Citalopram Hydrobromide [Celexa] 40 mg PO DAILY Furosemide [Lasix] 20 mg PO DAILY carvediloL [Coreg] 12.5 mg PO BID dexAMETHasone [Decadron] 6 mg IVP DAILY 02/06/21 12:00 Insulin Aspart [NovoLOG] 3 - 11 unit SUBQ 0800,1200,1700,2100 02/06/21 12:17 RT [Oxygen Therapy] [RC] .PRN 02/06/21 12:18 Mdi: Albuterol 2 puffs INH Q4HR PRN 02/06/21 12:19 Nebulizer/MDI Tx. [RC] .Q4PRN 02/06/21 21:00 Insulin Glargine [Lantus Solostar] 20 unit SUBQ BID 02/07/21 05:00 BMP - BASIC METABOLIC PANEL [CHEM] DAILYLAB CBC - COMP BLD CT W/AUTO DIFF [HEME] DAILYLAB 02/07/21 09:00 Remdesivir 100Mg Vial [Veklury] 100 mg Sodium Chloride 0.9% 100Ml [Normal Saline 0.9% 100Ml] 100 ml IV DAILY 02/08/21 05:00 BMP - BASIC METABOLIC PANEL [CHEM] DAILYLAB CBC - COMP BLD CT W/AUTO DIFF [HEME] DAILYLAB 02/09/21 05:00 BMP - BASIC METABOLIC PANEL [CHEM] DAILYLAB CBC - COMP BLD CT W/AUTO DIFF [HEME] DAILYLAB 02/10/21 05:00 BMP - BASIC METABOLIC PANEL [CHEM] DAILYLAB CBC - COMP BLD CT W/AUTO DIFF [HEME] DAILYLAB Subjective - Subjective Patient Reports: Resting Comfortably Objective Vital Signs: Vital Signs - 24 hr 02/05/21 02/05/21 02/05/21 16:00 18:00 20:00 Temperature Heart Rate 76 82 71 Heart Rate [ Brachial] Respiratory 18 18 17 Rate Blood Pressure 127/73 116/69 121/67 Blood Pressure [Left Brachial artery] O2 Saturation 95 95 95 02/05/21 02/05/21 02/06/21 22:00 23:49 07:30 Temperature 36.7 C 36.6 C Heart Rate 70 Heart Rate [ 65 63 Brachial] Respiratory 22 19 18 Rate Blood Pressure 119/76 Blood Pressure 120/70 117/63 [Left Brachial artery] O2 Saturation 97 97 94 02/06/21 02/06/21 02/06/21 09:56 11:51 12:22 Temperature 36.9 C 36.9 C Heart Rate 61 Heart Rate [ 72 61 Brachial] Respiratory 21 20 Rate Blood Pressure Blood Pressure 118/71 115/62 [Left Brachial artery] O2 Saturation 95 92 Oxygen O2 Source Nasal cannula Oxygen Flow Rate 2 I&O (Last 24 Hrs): Intake and Output Totals x24h 02/04/21 02/05/21 02/06/21 23:59 23:59 23:59 Intake Total 686 Output Total 0 Balance 686 General: Alert, Oriented x3, Cooperative, No acute distress HEENT: Atraumatic Neck: Supple Lymphatic: no adenopathy Neuro: Alert, Non Focal, Oriented Times 3 Cardiovascular: Regular rate, Normal S1, Normal S2 Respiratory: Chest non-tender, No respiratory distress Abdomen: Normal bowel sounds, Soft, No tenderness Extremities: Normal pulses - Results Results: Laboratory Results WBC 5.5 x10^3/uL (4.8-10.8) 02/06/21 05:55 RBC 3.60 10^6/uL (4.20-5.40) L 02/06/21 05:55 Hgb 10.4 g/dL (12.0-16.0) L 02/06/21 05:55 Hct 32.2 % (37.0-47.0) L 02/06/21 05:55 MCV 89.4 fL (81.0-99.0) 02/06/21 05:55 MCH 28.9 pg (27.0-31.0) 02/06/21 05:55 MCHC 32.3 g/dL (32.0-36.0) 02/06/21 05:55 RDW 13.8 % (12.0-15.0) 02/06/21 05:55 Plt Count 285 10^3/uL (130-450) 02/06/21 05:55 MPV 9.7 fL (7.9-10.8) 02/06/21 05:55 Neut # (Auto) 4.6 10^3/uL (1.5-6.6) 02/06/21 05:55 Lymph # (Auto) 0.4 10^3/uL (1.5-3.5) L 02/06/21 05:55 Br[place]ley # (Auto) 0.4 10^3/uL (0.0-1.0) 02/06/21 05:55 Eos # (Auto) 0.0 10^3/uL (0.0-0.7) 02/06/21 05:55 Baso # (Auto) 0.0 10^3/uL (0.0-0.1) 02/06/21 05:55 Absolute Nucleated RBC 0.00 x10^3/uL 02/06/21 05:55 Nucleated RBC % 0.0 /100WBC 02/06/21 05:55 Sodium 132 mmol/L (135-145) L 02/06/21 05:55 Potassium 5.0 mmol/L (3.5-5.0) 02/06/21 05:55 Chloride 96 mmol/L (101-111) L 02/06/21 05:55 Carbon Dioxide 26 mmol/L (21-32) 02/06/21 05:55 Anion Gap 10.0 (6-13) 02/06/21 05:55 BUN 36 mg/dL (6-20) H 02/06/21 05:55 Creatinine 1.2 mg/dL (0.4-1.0) H 02/06/21 05:55 Estimated GFR (MDRD) 44 (>89) L 02/06/21 05:55 Glucose 262 mg/dL (70-100) H 02/06/21 05:55 POC Whole Bld Glucose 307 mg/dL (70 - 100) H 02/06/21 11:38 Estimat Average Glucose 148 mg/dL (70-100) H 02/06/21 05:55 Hemoglobin A1c % 6.8 % (4.27-6.07) H 02/06/21 05:55 Lactic Acid 1.3 mmol/L (0.5-2.2) 02/04/21 20:38 Calcium 9.4 mg/dL (8.5-10.3) 02/06/21 05:55 Total Bilirubin 1.1 mg/dL (0.2-1.0) H 02/04/21 20:38 AST 94 IU/L (10-42) H 02/04/21 20:38 ALT 61 IU/L (10-60) H 02/04/21 20:38 Alkaline Phosphatase 52 IU/L (42-121) 02/04/21 20:38 B-Natriuretic Peptide 155 pg/mL (5-100) H 02/04/21 20:38 Total Protein 8.1 g/dL (6.7-8.2) 02/04/21 20:38 Albumin 3.5 g/dL (3.2-5.5) 02/04/21 20:38 Globulin 4.6 g/dL (2.1-4.2) H 02/04/21 20:38 Albumin/Globulin Ratio 0.8 (1.0-2.2) L 02/04/21 20:38 Lipase 49 U/L (22-51) 02/04/21 20:38 Urine Color YELLOW 02/04/21 22:02 Urine Clarity CLEAR (CLEAR) 02/04/21 22:02 Urine pH 5.5 PH (5.0-7.5) 02/04/21 22:02 Ur Specific [place] 1.020 (1.002-1.030) 02/04/21 22:02 Urine Protein 30 mg/dL (NEGATIVE) H 02/04/21 22:02 Urine Glucose (UA) NEGATIVE mg/dL (NEGATIVE) 02/04/21 22:02 Urine Ketones TRACE mg/dL (NEGATIVE) 02/04/21 22:02 Urine Occult Blood TRACE-LYSE (NEGATIVE) 02/04/21 22:02 Urine Nitrite NEGATIVE (NEGATIVE) 02/04/21 22: Urine Bilirubin NEGATIVE (NEGATIVE) 02/04/21 22:02 Urine Urobilinogen 0.2 (NORMAL) E.U./dL (NORMAL) 02/04/21 22:02 Ur Leukocyte Esterase NEGATIVE (NEGATIVE) 02/04/21 22:02 Urine RBC None Seen /HPF (0-5) 02/04/21 22:02 Urine WBC 0-3 /HPF (0-5) 02/04/21 22:02 Ur Squamous Epith Cells MANY Squamous (<= Few) H 02/04/21 22:02 Urine Bacteria Rare /HPF (None Seen) 02/04/21 22:02 Urine Mucus Few Strands 02/04/21 22:02 Ur Microscopic Review INDICATED 02/04/21 22:02 Urine Culture Comments NOT INDICATED 02/04/21 22:02 Nasal Adenovirus (PCR) NOT DETECTED 02/04/21 20:14 Nasal B. parapertussis DNA (PCR) NOT DETECTED 02/04/21 20:14 Nasal Coronavir 229E PCR NOT DETECTED 02/04/21 20:14 Nasal Coronavir HKU1 PCR NOT DETECTED 02/04/21 20:14 Nasal Coronavir NL63 PCR NOT DETECTED 02/04/21 20:14 Nasal Coronavir OC43 PCR NOT DETECTED 02/04/21 20:14 Nasal Enterovir/Rhinovir PCR NOT DETECTED 02/04/21 20:14 Nasal Influenza B PCR NOT DETECTED 02/04/21 20:14 Nasal Influenza A PCR NOT DETECTED 02/04/21 20:14 Nasal Parainfluen 1 PCR NOT DETECTED 02/04/21 20:14 Nasal Parainfluen 2 PCR NOT DETECTED 02/04/21 20:14 Nasal Parainfluen 3 PCR NOT DETECTED 02/04/21 20:14 Nasal Parainfluen 4 PCR NOT DETECTED 02/04/21 20:14 Nasal RSV (PCR) NOT DETECTED 02/04/21 20:14 Nasal B.pertussis DNA PCR NOT DETECTED 02/04/21 20:14 Nasal C.pneumoniae (PCR) NOT DETECTED 02/04/21 20:14 Dennis Human Metapneumo PCR NOT DETECTED 02/04/21 20:14 Nasal M.pneumoniae (PCR) NOT DETECTED 02/04/21 20:14 Nasal SARS-CoV-2 (PCR) DETECTED A 02/04/21 20:14 - Procedures Procedures: Procedures EXCISION OF CHEST SKIN, EXTERNAL APPROACH (03/21/19) INSERTION OF INFUSION DEV INTO SUP VENA CAVA, PERC APPROACH (03/21/19) OCCLUSION OF UPPER ARTERY, OPEN APPROACH (02/08/19) RESECTION OF LEFT BREAST, OPEN APPROACH (02/08/19) ABX Reporting Has patient been on IV antibiotics over the past 48 hours?: No Current Medications - Current Medications Current Medications: Active Medications Acetaminophen (Acetaminophen 325 Mg Tablet) 650 mg PO Q4HR PRN PRN Reason: Pain 1 to 4 Albuterol (Albuterol Neb 2.5 Mg/3 Ml) 2.5 mg INH RTQ4H PRN PRN Reason: Shortness of Air/Wheezing Albuterol (Albuterol 1 Puff) 2 puffs INH Q4HR PRN PRN Reason: Wheezing Stop: 05/17/21 12:17 Atorvastatin Calcium (Atorvastatin 10 Mg Tablet) 10 mg PO QPM [facility] Last Admin: 02/05/21 22:03 Dose: 10 mg Documented by: Carvedilol (Carvedilol 12.5 Mg Tablet) 12.5 mg PO BID [facility] Last Admin: 02/06/21 09:56 Dose: 12.5 mg Documented by: Citalopram Hydrobromide (Citalopram Hydrobromide 20 Mg Tablet) 40 mg PO DAILY [facility] Last Admin: 02/06/21 09:56 Dose: 40 mg Documented by: Dexamethasone (Dexamethasone 10 Mg/Ml Vial) 6 mg IVP DAILY [facility] Last Admin: 02/06/21 08:38 Dose: 6 mg Documented by: Enoxaparin Sodium (Enoxaparin 40 Mg/0.4 Ml Syringe) 40 mg SUBQ DAILY [facility] Last Admin: 02/06/21 08:38 Dose: 40 mg Documented by: Ferrous Gluconate (Ferrous Gluconate 324 Mg Tablet) 324 mg PO DAILYWM [facility] Last Admin: 02/06/21 08:37 Dose: 324 mg Documented by: Furosemide (Furosemide 20 Mg Tablet) 20 mg PO DAILY [facility] Last Admin: 02/06/21 09:56 Dose: 20 mg Documented by: Remdesivir 100 mg/ Sodium (Chloride) 100 mls @ 200 mls/hr IV DAILY [facility] Stop: 02/10/21 09:29 Insulin Aspart (Insulin Aspart 300 Unit/3 Ml Pen) 3 - 11 unit SUBQ 0800,1200,1700,2100 [facility]; Protocol Last Admin: 02/06/21 11:59 Dose: 9 unit Documented by: Insulin Glargine (Insulin Glargine 300 Unit/3 Ml Pen) 20 unit SUBQ BID [facility] Nystatin (Nystatin Powder 15 Gm) 1 applic TOP BID [facility] Last Admin: 02/06/21 08:42 Dose: 1 applic Documented by: Ondansetron HCl (Ondansetron 4 Mg/2 Ml Vial) 4 mg IVP Q6HR PRN PRN Reason: Nausea / Vomiting Sodium Chloride (Sodium Chloride Flush 0.9% 10 Ml Syringe) 10 ml IVP PRN PRN PRN Reason: NEEDED PER PROVIDER ORDERS Sodium Chloride (Sodium Chloride Flush 0.9% 10 Ml Syringe) 10 ml IVP 0100,0900,1700 [facility] Last Admin: 02/06/21 08:38 Dose: 10 ml Documented by: Insulin Glargine [Lantus Solostar] 45 units SQ BID 11/17/15 Lisinopril 10 mg PO DAILY 11/17/15 Simvastatin [Zocor] 20 mg PO QPM 11/17/15 carvediloL [Coreg] 12.5 mg PO BID 11/17/15 metFORMIN [Glucophage] 1,000 mg PO BIDWM 11/17/15 Citalopram [CeleXA] 40 mg PO DAILY 12/09/16 Albuterol Sulfate [Proair Hfa Inhaler] 1 - 2 puffs INH Q4H PRN 01/12/19 Furosemide 20 - 40 mg PO DAILY 01/12/19
[2021-02-06] MEDS: ATORVASTATIN 10 MG TABLET PO SCH (20:38)
[2021-02-06] MEDS: INSULIN GLARGINE 300 UNIT/3 ML PEN SUBQ SCH (20:40)
[2021-02-06] MEDS ORDERED: ATORVASTATIN 40 MG TABLET PO SCH (21:00)
[2021-02-07] MEDS: SODIUM CHLORIDE FLUSH 0.9% 10 ML SYRINGE IVP SCH ×3 (00:50→17:16)
[2021-02-07 06:01] LABS: CREATININE 1.3 mg/dL (0.4-1.0); POTASSIUM 4.7 mmol/L (3.5-5.0)
[2021-02-07] MEDS ORDERED: carvediloL 12.5 MG TABLET PO SCH (09:00)
[2021-02-07 09:07] LABS: HCT - HEMATOCRIT 30.8 % (37.0-47.0); HGB - HEMOGLOBIN 9.9 g/dL (12.0-16.0); MEAN CORPUSCULAR VOLUME 87.7 fL (81.0-99.0); RED BLOOD COUNT 3.51 10^6/uL (4.20-5.40); WHITE BLOOD COUNT 8.1 x10^3/uL (4.8-10.8)
[2021-02-07 09:08] LABS: BASOPHILS % (AUTO) 0.1 %; LYMPHOCYTES # (AUTO) 0.7 10^3/uL (1.5-3.5); LYMPHOCYTES % (AUTO) 9.1 %; MEAN CORPUSCULAR HEMOGLOBIN 28.2 pg (27.0-31.0); MEAN CORPUSCULAR HGB CONC 32.1 g/dL (32.0-36.0); MEAN PLATELET VOLUME 9.8 fL (7.9-10.8); MONOCYTES # (AUTO) 0.6 10^3/uL (0.0-1.0); MONOCYTES % (AUTO) 7.5 %; NEUTROPHILS # (AUTO) 6.7 10^3/uL (1.5-6.6); NEUTROPHILS % (AUTO) 82.1 %; PLT - PLATELET COUNT 316 10^3/uL (130-450); RED CELL DISTRIBUTION WIDTH 13.6 % (12.0-15.0)
[2021-02-07] MEDS: CITALOPRAM HYDROBROMIDE 20 MG TABLET PO SCH (09:10)
[2021-02-07] MEDS: FERROUS GLUCONATE 324 MG TABLET PO SCH (09:13)
[2021-02-07] MEDS: FUROSEMIDE 20 MG TABLET PO SCH (09:13)
[2021-02-07] MEDS: DEXAMETHASONE 10 MG/ML VIAL IVP SCH (09:14)
[2021-02-07] MEDS: ENOXAPARIN 40 MG/0.4 ML SYRINGE SUBQ SCH (09:14)
[2021-02-07] MEDS: INSULIN GLARGINE 300 UNIT/3 ML PEN SUBQ SCH ×2 (09:16→20:37)
[2021-02-07] MEDS: NYSTATIN POWDER 15 GM TOP SCH ×2 (09:17→20:40)
[2021-02-07] MEDS: REMDESIVIR 100MG VIAL 100 MG in SODIUM CHLORIDE 0.9% 100ML 100 ML IV SCH (09:18)
[2021-02-07] MEDS: INSULIN ASPART 300 UNIT/3 ML PEN SUBQ SCH ×4 (09:18→20:37)
[2021-02-07] MEDS ORDERED: INSULIN ASPART 300 UNIT/3 ML PEN SUBQ ONE (16:28)
--- NOTE | 2021-02-07 16:37 | PROVIDER PROGRESS NOTE ---
Assessment/Plan - Problem List (1) Acute hypoxemic respiratory failure due to COVID-19 Assessment/Plan: 02/07 pt had 94% on 2 liter of O2, comfortable sleep at bed without acute respiratory distress. continue Remdesivir, continue Decatron, and lovenox, supplement of O2 as needed. 02/06 pt had 92% O2 sat on 2 liter of O2, she has no acute respiratory distress now. continue Remdesivir, continue Decatron, and lovenox, supplement of O2 as needed. initially in the ER, Patient had 89% oxygen saturation on room air with tachypnea. Now she had 94% oxygen saturation on 2 L oxygen on nasal cannula. pt is positive for Covid 19. we will start on Remdesivir, continue Decatron, and lovenox, supplement of O2 as needed. (2)bradycardia Patient had EKG show sinus rhythm at heart rate 58 at the day time, but last night tele monitor found pt had Multiple times of pauses, longest one has over 5 second when pt was on sleep at 4 am. pt has hx of borderline of sleep apnea but no on CPAP or sleep study, pt had hx of bradycardia and consideration for pacemaker. now pt has Covid 19 infection which could affect her heart. we will hold her Coreg, check ECHO, and continue tele closely monitor pt. If pt is stable, advise pt followup with technical adjuster for possible pacemaker and pulm onologist for sleep study. (3) Chronic combined systolic (congestive) and diastolic (congestive) heart failure Conclusion/Plan: 02/07 order ECHO, troponine is slight elevated but flat, pt denies chest pain. continue home Lasix, lipitor, and tele monitor 02/06 stable, continue home Coreg, Lasix, lipitor, and tele monitor pt hx of chronic combined CHF, likely she is not exacerbation. we will resume home Coreg, Lasix, lipitor, and tele monitor (4) Diabetes Conclusion/Plan: 02/06 elevated glucose level, likely caused by steroid for Covid 19 treatment, add Novolog and increase Lantus as well, continue glucose check ACHS, hypoglycemia protocol, A1C is 6.8. pt is steroid for Covid 19 treatment, will add lantus, slide scale, hypoglycemia protoco, check A1Cl (5) HTN (hypertension) Conclusion/Plan: stable, will resume home meds (6) Asthma Conclusion/Plan: it is likely not exacerbation. pt is on steroid for Covid treatment, resume home albuterol MDI (7) CKD (chronic kidney disease) Conclusion/Plan: 02/06 improved, creatinine reduce 1.2 on today, continue lab monitor pt has hx of CKD III, avoid of nephrotixic agents, daily lab monitor - Current Meds Current Meds: Current Medications Generic Name Dose Route Start Last Admin Trade Name Freq PRN Reason Stop Dose Admin Atorvastatin Calcium 10 mg 02/05/21 21:00 02/06/21 20:38 Atorvastatin 10 Mg Tablet PO 10 mg QPM JOSE R Administration Citalopram Hydrobromide 40 mg 02/06/21 09:00 02/07/21 09:10 Citalopram Hydrobromide 20 Mg Tablet PO 40 mg DAILY JOSE R Administration Dexamethasone 6 mg 02/06/21 09:00 02/07/21 09:14 Dexamethasone 10 Mg/Ml Vial IVP 6 mg DAILY JOSE R Administration Enoxaparin Sodium 40 mg 02/05/21 18:42 02/07/21 09:14 Enoxaparin 40 Mg/0.4 Ml Syringe SUBQ 40 mg DAILY JOSE R Administration Ferrous Gluconate 324 mg 02/06/21 08:00 02/07/21 09:13 Ferrous Gluconate 324 Mg Tablet PO 324 mg DAILYWM JOSE R Administration Furosemide 20 mg 02/06/21 09:00 02/07/21 09:13 Furosemide 20 Mg Tablet PO 20 mg DAILY JOSE R Administration Remdesivir 100 mg/ Sodium 100 mls @ 200 mls/hr 02/07/21 09:00 02/07/21 09:50 Chloride IV 02/10/21 09:29 Infused DAILY JOSE R Infusion Insulin Aspart 3 - 11 unit 02/06/21 12:00 02/07/21 12:14 Insulin Aspart 300 Unit/3 Ml Pen SUBQ 9 unit 0800,1200,1700,2100 JOSE R Administration Protocol Nystatin 1 applic 02/05/21 21:00 02/07/21 09:17 Nystatin Powder 15 Gm TOP 1 applic BID JOSE R Administration Sodium Chloride 10 ml 02/06/21 01:00 02/07/21 09:18 Sodium Chloride Flush 0.9% 10 Ml Syringe IVP 10 ml 0100,0900,1700 JOSE R Administration - Lab Result Fish Bone Diagrams: 02/07/21 05:16 02/07/21 05:16 - Additional Planning My Orders: My Active Orders 02/07/21 09:00 Remdesivir 100Mg Vial [Veklury] 100 mg Sodium Chloride 0.9% 100Ml [Normal Saline 0.9% 100Ml] 100 ml IV DAILY 02/07/21 21:00 Insulin Glargine [Lantus Solostar] 30 unit SUBQ BID 02/08/21 05:00 BMP - BASIC METABOLIC PANEL [CHEM] DAILYLAB CBC - COMP BLD CT W/AUTO DIFF [HEME] DAILYLAB MAGNESIUM [CHEM] DAILYLAB 02/09/21 05:00 BMP - BASIC METABOLIC PANEL [CHEM] DAILYLAB CBC - COMP BLD CT W/AUTO DIFF [HEME] DAILYLAB MAGNESIUM [CHEM] DAILYLAB 02/10/21 05:00 BMP - BASIC METABOLIC PANEL [CHEM] DAILYLAB CBC - COMP BLD CT W/AUTO DIFF [HEME] DAILYLAB MAGNESIUM [CHEM] DAILYLAB 02/11/21 05:00 MAGNESIUM [CHEM] DAILYLAB Subjective - Subjective Patient Reports: Resting Comfortably Objective Vital Signs: Vital Signs - 24 hr 02/06/21 02/06/21 02/07/21 20:34 23:37 00:47 Temperature 36.7 C 36.8 C Heart Rate [ 67 58 L 59 L Brachial] Respiratory 18 20 16 Rate Blood Pressure 113/52 L [Left Brachial artery] Blood Pressure 112/59 L 128/73 [Right Brachial artery] O2 Saturation 94 94 02/07/21 02/07/21 02/07/21 04:05 08:20 11:17 Temperature 36.7 C 36.5 C 36.7 C Heart Rate [ 63 59 L 66 Brachial] Respiratory 17 20 22 Rate Blood Pressure 108/64 [Left Brachial artery] Blood Pressure 118/72 105/56 L [Right Brachial artery] O2 Saturation 95 97 94 Oxygen O2 Source Nasal cannula Oxygen Flow Rate 2 I&O (Last 24 Hrs): Intake and Output Totals x24h 02/05/21 02/06/21 02/07/21 23:59 23:59 23:59 Intake Total 1036 520 Output Total 650 500 Balance 386 20 General: Alert, Oriented x3, Cooperative, No acute distress HEENT: Atraumatic Neck: Supple Lymphatic: no adenopathy Neuro: Alert, Non Focal, Oriented Times 3 Cardiovascular: Regular rate, Normal S1, Normal S2 Respiratory: Chest non-tender, No respiratory distress Abdomen: Normal bowel sounds, Soft Extremities: Normal pulses - Results Results: Laboratory Results WBC 8.1 x10^3/uL (4.8-10.8) 02/07/21 05:16 RBC 3.51 10^6/uL (4.20-5.40) L 02/07/21 05:16 Hgb 9.9 g/dL (12.0-16.0) L 02/07/21 05:16 Hct 30.8 % (37.0-47.0) L 02/07/21 05:16 MCV 87.7 fL (81.0-99.0) 02/07/21 05:16 MCH 28.2 pg (27.0-31.0) 02/07/21 05:16 MCHC 32.1 g/dL (32.0-36.0) 02/07/21 05:16 RDW 13.6 % (12.0-15.0) 02/07/21 05:16 Plt Count 316 10^3/uL (130-450) 02/07/21 05:16 MPV 9.8 fL (7.9-10.8) 02/07/21 05:16 Neut # (Auto) 6.7 10^3/uL (1.5-6.6) H 02/07/21 05:16 Lymph # (Auto) 0.7 10^3/uL (1.5-3.5) L 02/07/21 05:16 [place] # (Auto) 0.6 10^3/uL (0.0-1.0) 02/07/21 05:16 Eos # (Auto) 0.0 10^3/uL (0.0-0.7) 02/07/21 05:16 Baso # (Auto) 0.0 10^3/uL (0.0-0.1) 02/07/21 05:16 Absolute Nucleated RBC 0.00 x10^3/uL 02/06/21 05:55 Nucleated RBC % 0.0 /100WBC 02/06/21 05:55 Sodium 132 mmol/L (135-145) L 02/07/21 05:16 Potassium 4.7 mmol/L (3.5-5.0) 02/07/21 05:16 Chloride 98 mmol/L (101-111) L 02/07/21 05:16 Carbon Dioxide 25 mmol/L (21-32) 02/07/21 05:16 Anion Gap 9.0 (6-13) 02/07/21 05:16 BUN 45 mg/dL (6-20) H 02/07/21 05:16 Creatinine 1.3 mg/dL (0.4-1.0) H 02/07/21 05:16 Estimated GFR (MDRD) 40 (>89) L 02/07/21 05:16 Glucose 169 mg/dL (70-100) H 02/07/21 05:16 POC Whole Bld Glucose 299 mg/dL (70 - 100) H 02/07/21 11:14 Estimat Average Glucose 148 mg/dL (70-100) H 02/06/21 05:55 Hemoglobin A1c % 6.8 % (4.27-6.07) H 02/06/21 05:55 Lactic Acid 1.3 mmol/L (0.5-2.2) 02/04/21 20:38 Calcium 9.0 mg/dL (8.5-10.3) 02/07/21 05:16 Magnesium 2.3 mg/dL (1.7-2.8) 02/07/21 05:16 Total Bilirubin 1.1 mg/dL (0.2-1.0) H 02/04/21 20:38 AST 94 IU/L (10-42) H 02/04/21 20:38 ALT 61 IU/L (10-60) H 02/04/21 20:38 Alkaline Phosphatase 52 IU/L (42-121) 02/04/21 20:38 Troponin I High Sens 31.0 ng/L (2.3-14.8) H* 02/07/21 05:16 B-Natriuretic Peptide 155 pg/mL (5-100) H 02/04/21 20:38 Total Protein 8.1 g/dL (6.7-8.2) 02/04/21 20:38 Albumin 3.5 g/dL (3.2-5.5) 02/04/21 20:38 Globulin 4.6 g/dL (2.1-4.2) H 02/04/21 20:38 Albumin/Globulin Ratio 0.8 (1.0-2.2) L 02/04/21 20:38 Lipase 49 U/L (22-51) 02/04/21 20:38 Urine Color YELLOW 02/04/21 22:02 Urine Clarity CLEAR (CLEAR) 02/04/21 22:02 Urine pH 5.5 PH (5.0-7.5) 02/04/21 22:02 Ur Specific [place] 1.020 (1.002-1.030) 02/04/21 22:02 Urine Protein 30 mg/dL (NEGATIVE) H 02/04/21 22:02 Urine Glucose (UA) NEGATIVE mg/dL (NEGATIVE) 02/04/21 22:02 Urine Ketones TRACE mg/dL (NEGATIVE) 02/04/21 22:02 Urine Occult Blood TRACE-LYSE (NEGATIVE) 02/04/21 22:02 Urine Nitrite NEGATIVE (NEGATIVE) 02/04/21 22:02 Urine Bilirubin NEGATIVE (NEGATIVE) 02/04/21 22:02 Urine Urobilinogen 0.2 (NORMAL) E.U./dL (NORMAL) 02/04/21 22:02 Ur Leukocyte Esterase NEGATIVE (NEGATIVE) 02/04/21 22:02 Urine RBC None Seen /HPF (0-5) 02/04/21 22:02 Urine WBC 0-3 /HPF (0-5) 02/04/21 22:02 Ur Squamous Epith Cells MANY Squamous (<= Few) H 02/04/21 22:02 Urine Bacteria Rare /HPF (None Seen) 02/04/21 22:02 Urine Mucus Few Strands 02/04/21 22:02 Ur Microscopic Review INDICATED 02/04/21 22:02 Urine Culture Comments NOT INDICATED 02/04/21 22:02 Nasal Adenovirus (PCR) NOT DETECTED 02/04/21 20:14 Nasal B. parapertussis DNA (PCR) NOT DETECTED 02/04/21 20:14 Nasal Coronavir 229E PCR NOT DETECTED 02/04/21 20:14 Nasal Coronavir HKU1 PCR NOT DETECTED 02/04/21 20:14 Nasal Coronavir NL63 PCR NOT DETECTED 02/04/21 20:14 Nasal Coronavir OC43 PCR NOT DETECTED 02/04/21 20:14 Nasal Enterovir/Rhinovir PCR NOT DETECTED 02/04/21 20:14 Nasal Influenza B PCR NOT DETECTED 02/04/21 20:14 Nasal Influenza A PCR NOT DETECTED 02/04/21 20:14 Nasal Parainfluen 1 PCR NOT DETECTED 02/04/21 20:14 Nasal Parainfluen 2 PCR NOT DETECTED 02/04/21 20:14 Nasal Parainfluen 3 PCR NOT DETECTED 02/04/21 20:14 Nasal Parainfluen 4 PCR NOT DETECTED 02/04/21 20:14 Nasal RSV (PCR) NOT DETECTED 02/04/21 20:14 Nasal B.pertussis DNA PCR NOT DETECTED 02/04/21 20:14 Nasal C.pneumoniae (PCR) NOT DETECTED 02/04/21 20:14 [place] Human Metapneumo PCR NOT DETECTED 02/04/21 20:14 Nasal M.pneumoniae (PCR) NOT DETECTED 02/04/21 20:14 Nasal SARS-CoV-2 (PCR) DETECTED A 02/04/21 20:14 - Procedures Procedures: Procedures EXCISION OF CHEST SKIN, EXTERNAL APPROACH (03/21/19) INSERTION OF INFUSION DEV INTO SUP VENA CAVA, PERC APPROACH (03/21/19) OCCLUSION OF UPPER ARTERY, OPEN APPROACH (02/08/19) RESECTION OF LEFT BREAST, OPEN APPROACH (02/08/19) Current Medications - Current Medications Current Medications: Active Medications Acetaminophen (Acetaminophen 325 Mg Tablet) 650 mg PO Q4HR PRN PRN Reason: Pain 1 to 4 Albuterol (Albuterol Neb 2.5 Mg/3 Ml) 2.5 mg INH RTQ4H PRN PRN Reason: Shortness of Air/Wheezing Albuterol (Albuterol 1 Puff) 2 puffs INH Q4HR PRN PRN Reason: Wheezing Stop: 05/17/21 12:17 Atorvastatin Calcium (Atorvastatin 10 Mg Tablet) 10 mg PO QPM [facility] Last Admin: 02/06/21 20:38 Dose: 10 mg Documented by: Citalopram Hydrobromide (Citalopram Hydrobromide 20 Mg Tablet) 40 mg PO DAILY [facility] Last Admin: 02/07/21 09:10 Dose: 40 mg Documented by: Dexamethasone (Dexamethasone 10 Mg/Ml Vial) 6 mg IVP DAILY [facility] Last Admin: 02/07/21 09:14 Dose: 6 mg Documented by: Enoxaparin Sodium (Enoxaparin 40 Mg/0.4 Ml Syringe) 40 mg SUBQ DAILY [facility] Last Admin: 02/07/21 09:14 Dose: 40 mg Documented by: Ferrous Gluconate (Ferrous Gluconate 324 Mg Tablet) 324 mg PO DAILYWM [facility] Last Admin: 02/07/21 09:13 Dose: 324 mg Documented by: Furosemide (Furosemide 20 Mg Tablet) 20 mg PO DAILY [facility] Last Admin: 02/07/21 09:13 Dose: 20 mg Documented by: Remdesivir 100 mg/ Sodium (Chloride) 100 mls @ 200 mls/hr IV DAILY [facility] Stop: 02/10/21 09:29 Last Infusion: 02/07/21 09:50 Dose: Infused Documented by: Insulin Aspart (Insulin Aspart 300 Unit/3 Ml Pen) 3 - 11 unit SUBQ 0800,1200,1700,2100 [facility]; Protocol Last Admin: 02/07/21 12:14 Dose: 9 unit Documented by: Insulin Glargine (Insulin Glargine 300 Unit/3 Ml Pen) 30 unit SUBQ BID [facility] Nystatin (Nystatin Powder 15 Gm) 1 applic TOP BID [facility] Last Admin: 02/07/21 09:17 Dose: 1 applic Documented by: Ondansetron HCl (Ondansetron 4 Mg/2 Ml Vial) 4 mg IVP Q6HR PRN PRN Reason: Nausea / Vomiting Sodium Chloride (Sodium Chloride Flush 0.9% 10 Ml Syringe) 10 ml IVP PRN PRN PRN Reason: NEEDED PER PROVIDER ORDERS Sodium Chloride (Sodium Chloride Flush 0.9% 10 Ml Syringe) 10 ml IVP 0100,0900,1700 [facility] Last Admin: 02/07/21 09:18 Dose: 10 ml Documented by: Insulin Glargine [Lantus Solostar] 45 units SQ BID 11/17/15 Lisinopril 10 mg PO DAILY 11/17/15 Simvastatin [Zocor] 20 mg PO QPM 11/17/15 carvediloL [Coreg] 12.5 mg PO BID 11/17/15 metFORMIN [Glucophage] 1,000 mg PO BIDWM 11/17/15 Citalopram [CeleXA] 40 mg PO DAILY 12/09/16 Albuterol Sulfate [Proair Hfa Inhaler] 1 - 2 puffs INH Q4H PRN 01/12/19 Furosemide 20 - 40 mg PO DAILY 01/12/19
[2021-02-07] MEDS: ATORVASTATIN 10 MG TABLET PO SCH (20:44)
[2021-02-07] MEDS ORDERED: SODIUM CHLORIDE FLUSH 0.9% 10 ML SYRINGE IVP PRN (21:14)
--- NOTE | 2021-02-07 21:35 | PROVIDER PROGRESS NOTE ---
Upper Cutter Out Note - Upper Cutter Out Note Upper Cutter Out Note: Since yesterday, telemetry has shown pauses caused by asystole, and 2 - 4.6 sec pauses were documented. Coreg was stopped last evening. She has now been 24 hours off B-diamond and she is on no other HR-slowing meds. Troponins were cycled x2 and were in 30's x2. RN brought her rhythm strips to my attention this evening: at approx 8-9 pm, she has had many runs of complete heart block with junctional w/BBB vs ideoventricular escape rhythm, at ventricular rates of 30. I spoke to and examined the pt: currently HR is 60 and reg, she is in no distress, she has not felt palpitations, lightheadedness or had syncope. She described her past cardiac Hx to me: she has Adriamycin-induced cardiomyopathy for many years. Her Concrete Finisher Apprentice is in [place], from [place]. He had her undergo a heart monitor recently and she does not know why or what it showed. She has never been advised that she needs a permanent pacemaker or defibrillator. Imp: Ideoventricular escape rhythm. 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 Plan: The patient wants everything done to save her life. She is a Full Code. Remain off all HR-slowing meds. Will transfer her to the ICU, continue isolation room for this COVID patient. Will attach temporary external pacemaker patches and set up for pacing, at a back-up rate of 50. Will order 1 amp of Atropine to be at bedside. Will plan to contact her Concrete Finisher Apprentice in a.m. regarding this problem, for possible transfer for a permanent pacemaker at his facility. This was all discussed and explained to the patient and the patient is in ag reement with this plan. CRITICAL CARE TIME SPENT: 45 min
[2021-02-07] MEDS ORDERED: ATROPINE ABBOJECT 1 MG/10 ML SYRINGE IVP ONE (22:14)
[2021-02-07] MEDS ORDERED: ATROPINE 0.4 MG/ML VIAL IVP PRN (22:26)
[2021-02-08] MEDS: SODIUM CHLORIDE FLUSH 0.9% 10 ML SYRINGE IVP SCH ×4 (00:46→09:17)
[2021-02-08 05:00] LABS: BASOPHILS % (AUTO) 0.1 %; HCT - HEMATOCRIT 31.7 % (37.0-47.0); HGB - HEMOGLOBIN 10.5 g/dL (12.0-16.0); LYMPHOCYTES # (AUTO) 0.5 10^3/uL (1.5-3.5); LYMPHOCYTES % (AUTO) 6.3 %; MEAN CORPUSCULAR HEMOGLOBIN 29.1 pg (27.0-31.0); MEAN CORPUSCULAR HGB CONC 33.1 g/dL (32.0-36.0); MEAN CORPUSCULAR VOLUME 87.8 fL (81.0-99.0); MEAN PLATELET VOLUME 9.5 fL (7.9-10.8); MONOCYTES # (AUTO) 0.6 10^3/uL (0.0-1.0); MONOCYTES % (AUTO) 7.4 %; NEUTROPHILS # (AUTO) 7.3 10^3/uL (1.5-6.6); NEUTROPHILS % (AUTO) 84.6 %; PLT - PLATELET COUNT 318 10^3/uL (130-450); RED BLOOD COUNT 3.61 10^6/uL (4.20-5.40); RED CELL DISTRIBUTION WIDTH 13.6 % (12.0-15.0); WHITE BLOOD COUNT 8.6 x10^3/uL (4.8-10.8)
[2021-02-08 05:22] LABS: ALBUMIN 2.9 g/dL (3.2-5.5); BILIRUBIN,DIRECT 0.1 mg/dL (0.1-0.5); BILIRUBIN,TOTAL 0.5 mg/dL (0.2-1.0); CALCIUM 8.8 mg/dL (8.5-10.3); CREATININE 1.4 mg/dL (0.4-1.0); MAGNESIUM 2.3 mg/dL (1.7-2.8); POTASSIUM 4.5 mmol/L (3.5-5.0); TOTAL PROTEIN 6.8 g/dL (6.7-8.2)
--- NOTE | 2021-02-08 08:11 | PROVIDER PROGRESS NOTE ---
Assessment/Plan - Current Meds Current Meds: Current Medications Generic Name Dose Route Start Last Admin Trade Name Jyoti PRN Reason Stop Dose Admin Atorvastatin Calcium 10 mg 02/05/21 21:00 02/07/21 20:44 Atorvastatin 10 Mg Tablet PO 10 mg QPM JOSE R Administration Citalopram Hydrobromide 40 mg 02/06/21 09:00 02/07/21 09:10 Citalopram Hydrobromide 20 Mg Tablet PO 40 mg DAILY JOSE R Administration Dexamethasone 6 mg 02/06/21 09:00 02/07/21 09:14 Dexamethasone 10 Mg/Ml Vial IVP 6 mg DAILY JOSE R Administration Enoxaparin Sodium 40 mg 02/05/21 18:42 02/07/21 09:14 Enoxaparin 40 Mg/0.4 Ml Syringe SUBQ 40 mg DAILY JOSE R Administration Ferrous Gluconate 324 mg 02/06/21 08:00 02/07/21 09:13 Ferrous Gluconate 324 Mg Tablet PO 324 mg DAILYWM JOSE R Administration Furosemide 20 mg 02/06/21 09:00 02/07/21 09:13 Furosemide 20 Mg Tablet PO 20 mg DAILY JOSE R Administration Remdesivir 100 mg/ Sodium 100 mls @ 200 mls/hr 02/07/21 09:00 02/07/21 09:50 Chloride IV 02/10/21 09:29 Infused DAILY JOSE R Infusion Insulin Aspart 3 - 11 unit 02/06/21 12:00 02/07/21 20:37 Insulin Aspart 300 Unit/3 Ml Pen SUBQ 9 unit 0800,1200,1700,2100 JOSE R Administration Protocol Insulin Glargine 30 unit 02/07/21 21:00 02/07/21 20:37 Insulin Glargine 300 Unit/3 Ml Pen SUBQ 30 unit BID JOSE R Administration Nystatin 1 applic 02/05/21 21:00 02/07/21 20:40 Nystatin Powder 15 Gm TOP 1 applic BID JOSE R Administration Sodium Chloride 10 ml 02/06/21 01:00 02/08/21 00:46 Sodium Chloride Flush 0.9% 10 Ml Syringe IVP 10 ml 0100,0900,1700 JOSE R Administration Sodium Chloride 10 ml 02/08/21 01:00 02/08/21 01:48 Sodium Chloride Flush 0.9% 10 Ml Syringe IVP Not Given 0100,0900,1700 JOSE R - Lab Result Fish Bone Diagrams: 02/08/21 04:37 02/08/21 04:37 Objective Vital Signs: Vital Signs - 24 hr 02/07/21 02/07/21 02/07/21 08:20 11:17 16:33 Temperature 36.5 C 36.7 C 36.7 C Heart Rate Heart Rate [ 59 L 66 63 Brachial] Heart Rate [ Monitoring electrodes] Respiratory 20 22 20 Rate Blood Pressure 108/64 [Left Brachial artery] Blood Pressure [Left Radial artery] Blood Pressure 105/56 L 127/68 [Right Brachial artery] Blood Pressure [Right Radial artery] O2 Saturation 97 94 94 02/07/21 02/07/21 02/08/21 20:35 21:30 00:00 Temperature 37 C Heart Rate 47 L Heart Rate [ 70 67 Brachial] Heart Rate [ 49 L Monitoring electrodes] Respiratory 18 27 H Rate Blood Pressure [Left Brachial artery] Blood Pressure 117/60 [Left Radial artery] Blood Pressure [Right Brachial artery] Blood Pressure 113/75 [Right Radial artery] O2 Saturation 98 96 02/08/21 02/08/21 02/08/21 01:00 02:00 02:40 Temperature Heart Rate 43 L Heart Rate [ 43 L Brachial] Heart Rate [ 46 L Monitoring electrodes] Respiratory 26 H 20 Rate Blood Pressure [Left Brachial artery] Blood Pressure 114/61 117/76 [Left Radial artery] Blood Pressure [Right Brachial artery] Blood Pressure [Right Radial artery] O2 Saturation 93 96 02/08/21 02/08/21 02/08/21 03:00 04:00 05:00 Temperature Heart Rate Heart Rate [ Brachial] Heart Rate [ 42 L 37 L Monitoring electrodes] Respiratory 22 22 26 H Rate Blood Pressure [Left Brachial artery] Blood Pressure 119/71 113/65 109/62 [Left Radial artery] Blood Pressure [Right Brachial artery] Blood Pressure [Right Radial artery] O2 Saturation 96 93 96 02/08/21 02/08/21 02/08/21 06:00 06:40 07:00 Temperature Heart Rate 42 L Heart Rate [ Brachial] Heart Rate [ 37 L 36 L Monitoring electrodes] Respiratory 21 21 Rate Blood Pressure [Left Brachial artery] Blood Pressure 114/60 108/62 [Left Radial artery] Blood Pressure [Right Brachial artery] Blood Pressure [Right Radial artery] O2 Saturation 96 97 02/08/21 08:00 Temperature 36.6 C Heart Rate Heart Rate [ Brachial] Heart Rate [ 61 Monitoring electrodes] Respiratory 20 Rate Blood Pressure [Left Brachial artery] Blood Pressure [Left Radial artery] Blood Pressure 142/90 H [Right Brachial artery] Blood Pressure [Right Radial artery] O2 Saturation 96 Oxygen O2 Source Nasal cannula Oxygen Flow Rate 2 I&O (Last 24 Hrs): Intake and Output Totals x24h 02/06/21 02/07/21 02/08/21 23:59 23:59 23:59 Intake Total 1036 520 150 Output Total 650 500 0 Balance 386 20 150 - Results Results: Laboratory Results WBC 8.6 x10^3/uL (4.8-10.8) 02/08/21 04:37 RBC 3.61 10^6/uL (4.20-5.40) L 02/08/21 04:37 Hgb 10.5 g/dL (12.0-16.0) L 02/08/21 04:37 Hct 31.7 % (37.0-47.0) L 02/08/21 04:37 MCV 87.8 fL (81.0-99.0) 02/08/21 04:37 MCH 29.1 pg (27.0-31.0) 02/08/21 04:37 MCHC 33.1 g/dL (32.0-36.0) 02/08/21 04:37 RDW 13.6 % (12.0-15.0) 02/08/21 04:37 Plt Count 318 10^3/uL (130-450) 02/08/21 04:37 MPV 9.5 fL (7.9-10.8) 02/08/21 04:37 Neut # (Auto) 7.3 10^3/uL (1.5-6.6) H 02/08/21 04:37 Lymph # (Auto) 0.5 10^3/uL (1.5-3.5) L 02/08/21 04:37 [place] # (Auto) 0.6 10^3/uL (0.0-1.0) 02/08/21 04:37 Eos # (Auto) 0.0 10^3/uL (0.0-0.7) 02/08/21 04:37 Baso # (Auto) 0.0 10^3/uL (0.0-0.1) 02/08/21 04:37 Absolute Nucleated RBC 0.00 x10^3/uL 02/08/21 04:37 Nucleated RBC % 0.0 /100WBC 02/08/21 04:37 Sodium 129 mmol/L (135-145) L 02/08/21 04:37 Potassium 4.5 mmol/L (3.5-5.0) 02/08/21 04:37 Chloride 95 mmol/L (101-111) L 02/08/21 04:37 Carbon Dioxide 24 mmol/L (21-32) 02/08/21 04:37 Anion Gap 10.0 (6-13) 02/08/21 04:37 BUN 49 mg/dL (6-20) H 02/08/21 04:37 Creatinine 1.4 mg/dL (0.4-1.0) H 02/08/21 04:37 Estimated GFR (MDRD) 37 (>89) L 02/08/21 04:37 Glucose 207 mg/dL (70-100) H 02/08/21 04:37 POC Whole Bld Glucose 206 mg/dL (70 - 100) H 02/08/21 08:02 Estimat Average Glucose 148 mg/dL (70-100) H 02/06/21 05:55 Hemoglobin A1c % 6.8 % (4.27-6.07) H 02/06/21 05:55 Lactic Acid 1.3 mmol/L (0.5-2.2) 02/04/21 20:38 Calcium 8.8 mg/dL (8.5-10.3) 02/08/21 04:37 Magnesium 2.3 mg/dL (1.7-2.8) 02/08/21 04:37 Total Bilirubin 0.5 mg/dL (0.2-1.0) 02/08/21 04:37 Direct Bilirubin 0.1 mg/dL (0.1-0.5) 02/08/21 04:37 AST 24 IU/L (10-42) 02/08/21 04:37 ALT 41 IU/L (10-60) 02/08/21 04:37 Alkaline Phosphatase 50 IU/L (42-121) 02/08/21 04:37 Troponin I High Sens 31.0 ng/L (2.3-14.8) H* 02/07/21 05:16 B-Natriuretic Peptide 155 pg/mL (5-100) H 02/04/21 20:38 Total Protein 6.8 g/dL (6.7-8.2) 02/08/21 04:37 Albumin 2.9 g/dL (3.2-5.5) L 02/08/21 04:37 Globulin 3.9 g/dL (2.1-4.2) 02/08/21 04:37 Albumin/Globulin Ratio 0.8 (1.0-2.2) L 02/04/21 20:38 Lipase 49 U/L (22-51) 02/04/21 20:38 Urine Color YELLOW 02/04/21 22:02 Urine Clarity CLEAR (CLEAR) 02/04/21 22: Urine pH 5.5 PH (5.0-7.5) 02/04/21 22:02 Ur Specific [place] 1.020 (1.002-1.030) 02/04/21 22:02 Urine Protein 30 mg/dL (NEGATIVE) H 02/04/21 22:02 Urine Glucose (UA) NEGATIVE mg/dL (NEGATIVE) 02/04/21 22: Urine Ketones TRACE mg/dL (NEGATIVE) 02/04/21 22:02 Urine Occult Blood TRACE-LYSE (NEGATIVE) 02/04/21 22: Urine Nitrite NEGATIVE (NEGATIVE) 02/04/21 22: Urine Bilirubin NEGATIVE (NEGATIVE) 02/04/21 22:02 Urine Urobilinogen 0.2 (NORMAL) E.U./dL (NORMAL) 02/04/21 22:02 Ur Leukocyte Esterase NEGATIVE (NEGATIVE) 02/04/21 22:02 Urine RBC None Seen /HPF (0-5) 02/04/21 22:02 Urine WBC 0-3 /HPF (0-5) 02/04/21 22:02 Ur Squamous Epith Cells MANY Squamous (<= Few) H 02/04/21 22:02 Urine Bacteria Rare /HPF (None Seen) 02/04/21 22: Urine Mucus Few Strands 02/04/21 22:02 Ur Microscopic Review INDICATED 02/04/21 22:02 Urine Culture Comments NOT INDICATED 02/04/21 22: Nasal Adenovirus (PCR) NOT DETECTED 02/04/21:14 Nasal B. parapertussis DNA (PCR) NOT DETECTED 02/04/21 20:14 Nasal Coronavir 229E PCR NOT DETECTED 02/04/21 20:14 Nasal Coronavir HKU1 PCR NOT DETECTED 02/04/21 20:14 Nasal Coronavir NL63 PCR NOT DETECTED 02/04/21 20:14 Nasal Coronavir OC43 PCR NOT DETECTED 02/04/21 20:14 Nasal Enterovir/Rhinovir PCR NOT DETECTED 02/04/21 20:14 Nasal Influenza B PCR NOT DETECTED 02/04/21 20:14 Nasal Influenza A PCR NOT DETECTED 02/04/21 20:14 Nasal Parainfluen 1 PCR NOT DETECTED 02/04/21 20:14 Nasal Parainfluen 2 PCR NOT DETECTED 02/04/21 20:14 Nasal Parainfluen 3 PCR NOT DETECTED 02/04/21 20:14 Nasal Parainfluen 4 PCR NOT DETECTED 02/04/21 20:14 Nasal RSV (PCR) NOT DETECTED 02/04/21 20:14 Nasal Screen MRSA (PCR) NEGATIVE (NEGATIVE) 02/07/21 21:55 Nasal B.pertussis DNA PCR NOT DETECTED 02/04/21 20:14 Nasal C.pneumoniae (PCR) NOT DETECTED 02/04/21 20:14 Dennis Human Metapneumo PCR NOT DETECTED 02/04/21 20:14 Nasal M.pneumoniae (PCR) NOT DETECTED 02/04/21 20:14 Nasal SARS-CoV-2 (PCR) DETECTED A 02/04/21 20:14 - Procedures Procedures: Procedures EXCISION OF CHEST SKIN, EXTERNAL APPROACH (03/21/19) INSERTION OF INFUSION DEV INTO SUP VENA CAVA, PERC APPROACH (03/21/19) OCCLUSION OF UPPER ARTERY, OPEN APPROACH (02/08/19) RESECTION OF LEFT BREAST, OPEN APPROACH (02/08/19)
[2021-02-08] MEDS: NYSTATIN POWDER 15 GM TOP SCH (09:11)
[2021-02-08] MEDS: CITALOPRAM HYDROBROMIDE 20 MG TABLET PO SCH (09:13)
[2021-02-08] MEDS: DEXAMETHASONE 10 MG/ML VIAL IVP SCH (09:13)
[2021-02-08] MEDS: FUROSEMIDE 20 MG TABLET PO SCH (09:13)
[2021-02-08] MEDS: FERROUS GLUCONATE 324 MG TABLET PO SCH (09:14)
[2021-02-08] MEDS: INSULIN ASPART 300 UNIT/3 ML PEN SUBQ SCH ×3 (09:14→14:19)
[2021-02-08] MEDS: ENOXAPARIN 40 MG/0.4 ML SYRINGE SUBQ SCH (09:16)
[2021-02-08] MEDS: INSULIN GLARGINE 300 UNIT/3 ML PEN SUBQ SCH (09:16)
[2021-02-08] MEDS: REMDESIVIR 100MG VIAL 100 MG in SODIUM CHLORIDE 0.9% 100ML 100 ML IV SCH (09:17)
[2021-02-08] MEDS ORDERED: ATROPINE ABBOJECT 1 MG/10 ML SYRINGE IVP PRN (09:24)
[2021-02-08] MEDS ORDERED: MIDAZOLAM 2 MG/2 ML VIAL IVP PRN (12:03)
--- NOTE | 2021-02-08 13:10 | Discharge Plan ---
Discharge Plan Problem Reviewed?: Yes Disposition: 02 Transfer Acute Care Hosp Condition: Serious Diet: Cardiac Activity Restrictions: Bed rest Health Concerns: Patient was admitted on 02/05/2021 with difficulty breathing and hypoxia. Patient had been diagnosed with COVID-19 10 days before presentation. She only required 2 L of oxygen via nasal cannula and her oxygen saturation was in the mid 90s. She was treated with dexamethasone and remdesivir Over the course of her hospital stay she had frequent pauses ranging between 2 seconds and 5 seconds. Initially her carvedilol 12.5 mg p.o. twice daily was held. However despite the medication change, overnight of 02/07/2021 the patient went into complete heart block and subsequently had an idioventricular rhythm. She was transferred to the ICU and transcutaneous pacers were placed. Consequently the patient is being transferred to [facility] under the care of the novelty twister tender Dr. Odin Zaman due to her COVID19 diagnosis. Cardiology will be consulted for a potential pacemaker placement The above plan was discussed with the patient who expressed understanding and is in agreement with the plan. No Smoking: If you smoke, Please STOP! Call for help. Follow-up with: Portillo Hurd MD [Primary Care Provider] -
--- NOTE | 2021-02-08 13:10 | DISCHARGE SUMMARY ---
Discharge Summary Admit Date: 02/05/21 Discharge Date: 02/08/21 Discharging Provider: Michelle Lopez Primary Care Provider: Harrison Hurd Code Status: Attempt Resuscitation Condition at Discharge: Serious Discharge Disposition: 02 Transfer Acute Care Hosp Discharge Facility Name: [facility] [place] DIAGNOSES Admission Diagnoses: Acute Respiratory failure with hypoxia due to COVID-19 Chronic combined systolic and diastolic heart failure Diabetes Hypertension Asthma Chronic kidney disease Discharge Diagnoses with Status of Each Condition: Complete heart block: Patient transferred to [facility] for cardiology consult and possible pacemaker placement. Acute Respiratory failure with hypoxia due to COVID-19: Improving. Patient was on 2 L via nasal cannula to keep her oxygen saturation at 95% by the time of discharge Chronic combined systolic and diastolic heart failure: Coreg held due to heart block. Diabetes: Chronic. stable. Continue home medications. Hypertension: Chronic. stable. Continue home medications. Asthma: Chronic. stable. Continue home medications. Chronic kidney disease: Chronic. stable. Continue home medications. - HPI History of Present Illness: Per HPI: This is a 75 years-old female with a past medical history significant for breast cancer s/p mastectomy, Diabetic, CHF, CKD, Hypertension, hyperlipidemia, asthma, psoriasis, gout, depression, incontinence, who presented to the ER complaining of difficulty breathing. Patient reported that she had a positive COVID-19 test about 10 days ago. She is unvaccinated. She reported increased dyspnea and intermittent fever at home. She denied chest pain, nausea, vomiting, diarrhea. Her oxygen saturation in the emergency department was 89% on room air. She was tachypneic. Her initial chest x-ray was unremarkable for any cardiopulmonary process. Patient was a full code. - HOSPITAL COURSE Hospital Course: Patient was admitted on 02/05/2021 with difficulty breathing and hypoxia. Patient had been diagnosed with COVID-19 10 days before presentation. She only required 2 L of oxygen via nasal cannula and her oxygen saturation was in the mid 90s. From a respiratory point of view she did quite well over the course of her hospital stay. She was treated with dexamethasone and remdesivir Over the course of the hospital stay she had frequent pauses ranging between 2 seconds and 5 seconds. Initially her carvedilol 12.5 mg p.o. twice daily was held. However despite the medication change, overthe acreage reporter of 02/07/2021 the patient went into complete heart block and subsequently had an idioventricular rhythm. She was transferred to the ICU and transcutaneous pacers were placed. Consequently the patient is being transferred to [facility] under the care of the automatic teller machine servicer Dr. Odin Zaman due to her COVID19 diagnosis. Cardiology will be consulted for a potential pacemaker placement - ALLERGIES Allergies/Adverse Reactions: Allergies Allergy/AdvReac Type Severity Reaction Status Date / Time adhesive tape Allergy skin nelson Verified 02/04/21 19:51 Penicillins Allergy Anaphylaxis Verified 02/04/21 19:51 - MEDICATIONS Home Medications: Ambulatory Orders Medication Instructions Recorded Confirmed Insulin Glargine [Lantus Solostar] 45 units SQ BID 11/17/15 02/05/21 Lisinopril 10 mg PO DAILY 11/17/15 02/05/21 Simvastatin [Zocor] 20 mg PO QPM 11/17/15 02/05/21 carvediloL [Coreg] 12.5 mg PO BID 11/17/15 02/05/21 metFORMIN [Glucophage] 1,000 mg PO BIDWM 11/17/15 02/05/21 Citalopram [CeleXA] 40 mg PO DAILY 12/09/16 02/05/21 Albuterol Sulfate [Proair Hfa 1 - 2 puffs INH Q4H PRN 01/12/19 02/05/21 Inhaler] Furosemide 20 - 40 mg PO DAILY 01/12/19 02/05/21 Ferrous Gluconate [Iron] 240 mg PO DAILY #30 tablet 04/10/19 02/05/21 - PHYSICAL EXAM AT DISCHARGE General Appearance: positive: No acute distress, Alert Eyes Bilateral: positive: PERRL, EOMI ENT: positive: No signs of dehydration Neck: positive: No JVD, Trachea midline Respiratory: positive: No respiratory distress, Other (mild crackles in lung bases) Cardiovascular: positive: Bradycardia Abdomen: positive: Non-tender, No organomegaly, Nml bowel sounds, No distention. negative: Guarding, Rebound Back: positive: Nml inspection Skin: positive: Color nml, No rash, Warm, Dry Extremities: positive: Non-tender, Full ROM, Nml appearance, No pedal edema Neurologic/Psychiatric: positive: Oriented x3, Mood/affect nml - LABS Result Diagrams: 02/08/21 04:37 02/08/21 04:37 - TIME SPENT Time Spent in Discharge (Minutes): 35
[2021-02-08 14:21] VITALS: BP 130/72
== END 2021-02-08 15:20 | disposition short-term general hospital (02) | DRG 177 ==
LOC: ED 19:22 → MS3 02-05 18:04 → ICU 02-07 21:43
PROVIDERS: ADMIT Nurse Practitioner Gerontology; ATTEND Internal Medicine
PROC: 3E0333Z Introduction of Anti-inflammatory into Peripheral Vein, Percutaneous Approach (ICD-10-PCS; 2021-02-05)
PROC: XW033E5 Introduction of Remdesivir Anti-infective into Peripheral Vein, Percutaneous Approach, New Technology Group 5 (ICD-10-PCS; principal; 2021-02-06)
DX: U07.1 COVID-19 (principal); R09.02 Hypoxemia; I11.0 Hypertensive heart disease with heart failure; I50.9 Heart failure, unspecified; E11.9 Type 2 diabetes mellitus without complications; J96.01 Acute respiratory failure with hypoxia; I44.2 Atrioventricular block, complete; I13.0 Hypertensive heart and chronic kidney disease with heart failure and stage 1 through stage 4 chronic kidney disease, or unspecified chronic kidney disease; I50.42 Chronic combined systolic (congestive) and diastolic (congestive) heart failure; I42.7 Cardiomyopathy due to drug and external agent; E11.22 Type 2 diabetes mellitus with diabetic chronic kidney disease; N18.30 Chronic kidney disease, stage 3 unspecified; Z79.4 Long term (current) use of insulin; Z79.84 Long term (current) use of oral hypoglycemic drugs; J45.909 Unspecified asthma, uncomplicated; E78.5 Hyperlipidemia, unspecified; Z85.3 Personal history of malignant neoplasm of breast
CPT/HCPCS: 36415; 71045; 80048; 80053; 80076; 81001; 83036; 83605; 83690; 83735; 83880; 84484; 85025; 87150; 87631; 93005; 96374; 99284; 99285; A9270; J1650; J1815; J8499; 0202U; 81003; 87086

== ENCOUNTER 2021-04-09 09:48 | Outpatient (CLI) | payer MEDICARE, OTHER ==
--- NOTE | 2021-04-09 11:39 | XRAY Report ---
PROCEDURE: Chest 2 View X-Ray INDICATIONS: COVID PNEUMONIA TECHNIQUE: 2 view(s) of the chest. COMPARISON: None. FINDINGS: Surgical changes and devices: Left chest wall four-lead cardiac pacing device Lungs and pleura: No pleural effusions or pneumothorax. Lungs are clear. Asymmetric elevation of t he right hemidiaphragm as seen on prior studies. Mediastinum: Mediastinal contours are normal. Heart size is normal. Bones and chest wall: No suspicious bony abnormalities. Soft tissues appear unremarkable. IMPRESSION: No acute cardiopulmonary process demonstrated radiographically. Reviewed by: Lexa Childers MD on 04/09/2021 11:37 AM [facility] Approved by: Lexa Childers MD on 04/09/2021 11:37 AM [facility] Station ID: [id number]
== END 2021-04-09 09:49 | disposition home or self-care (01) ==
LOC: DI 09:48
PROVIDERS: ATTEND Physician Assistant
DX: U07.1 COVID-19 (principal); J12.82 Pneumonia due to coronavirus disease 2019

== ENCOUNTER 2021-07-05 14:16 | Outpatient (CLI) | payer MEDICARE, OTHER ==
--- NOTE | 2021-07-05 16:36 | DEXA Report ---
PROCEDURE: Dexa Spine and/or Hip INDICATIONS: OSTEOPOROSIS,UNSP ROTATR-CUFF TEAR/RUPTR OF RIGHT TECHNIQUE: Dual energy x-ray absorptiometry (DXA) was performed on a [employer] System. Regions measur ed are the AP Spine, femoral neck, and if needed forearm. COMPARISON: None. FINDINGS: Lumbar Spine: Bone Mineral Density 1.318 g/cm/cm,T score 1.2, compared to 0.7 Left Hip: Bone Mineral Density 0.79 g/cm/cm,T score -1.7, -1.6 Left Femoral Neck: Bone Mineral Density 0.773 g/cm/cm, T score -1.9, compared to -2.3 (T score greater or equal to -1.0: NORMAL) (T score from -1.1 to -2.4: OSTEOPENIA) (T score less than or equal to -2.5 to: OSTEOPOROSIS) Impression: Persistent osteopenia within the left hip and femoral neck demonstrating improvement of bone mineral density within the left femoral neck compared to prior exam. Patients with diagnosis of osteoporosis or osteopenia should have regular bone mineral density assess ment. For those eligible for Medicare, routine testing is allowed once every 2 years. Testing frequ ency can be increased for patients who have rapidly progressing disease or for those who are receivin g medical therapy to restore bone mass. Reviewed by: Lori Rios MD on 07/05/2021 4:34 PM PDT Approved by: Lori Rios MD on 07/05/2021 4:34 PM PDT Station ID: [id number]
== END 2021-07-05 14:17 | disposition home or self-care (01) ==
LOC: DI 14:16
PROVIDERS: ATTEND Internal Medicine
DX: M85.89 Other specified disorders of bone density and structure, multiple sites (principal)

== ENCOUNTER 2023-03-12 23:25 | Outpatient (CLI) | payer MEDICARE, OTHER | END 2023-03-12 23:26 | disposition EMS.NT | LOC: EMS 23:25 | DX: S00.81XA Abrasion of other part of head, initial encounter (principal); W01.190A Fall on same level from slipping, tripping and stumbling with subsequent striking against furniture, initial encounter; Y92.099 Unspecified place in other non-institutional residence as the place of occurrence of the external cause; Z79.01 Long term (current) use of anticoagulants ==